=== PATIENT | female | born 1965 | race Caucasian/White ===

== ENCOUNTER 2019-05-24 10:47 | Inpatient (IN) | payer OTHER ==
[~2019-05-24] VITALS: Ht 175.3 cm; Wt 131.8 kg
[2019-05-24] MEDS ORDERED: ASPIRIN 325 MG (5 GR) TABLET PO ONE (11:15)
[2019-05-24 11:27] LABS: BASOPHILS % (AUTO) 0 % (0-10); EOSINOPHILS % (AUTO) 4 % (0-10); HEMATOCRIT 42 % (35-52); HEMOGLOBIN 13.9 G/DL (11.5-16.0); LYMPHOCYTES % (AUTO) 31 % (12-44); MEAN CORPUSCULAR HEMOGLOBIN 29 PG (25-34); MEAN CORPUSCULAR HGB CONC 33 G/DL (32-36); MEAN CORPUSCULAR VOLUME 89 FL (80-99); MEAN PLATELET VOLUME 10.9 FL (7.4-10.4); MONOCYTES % (AUTO) 9 % (0-12); NEUTROPHILS # (AUTO) 2.6 X 10^3 (1.8-7.8); NEUTROPHILS % (AUTO) 56 % (42-75); PLATELET COUNT 169 10^3/uL (130-400); RED CELL DISTRIBUTION WIDTH 16.2 % (10.0-14.5); WHITE BLOOD COUNT 4.7 10^3/uL (4.3-11.0)
[2019-05-24 11:28] LABS: EOSINOPHILS # (AUTO) 0.2 10^3/uL (0.0-0.3); LYMPHOCYTES # (AUTO) 1.4 X 10^3 (1.0-4.0); MONOCYTES # (AUTO) 0.4 X 10^3 (0.0-1.0)
[2019-05-24] MEDS ORDERED: RT-ALBUTEROL/IPRATROPIUM 3 ML (DUONEB) VIAL INH ONE (11:30)
--- NOTE | 2019-05-24 11:34 | ED Chest Pain ---
General Chief Complaint: Chest Pain Stated Complaint: SOB; CHEST PAIN History of Present Illness Date Seen by Provider: May 24, 2019 Time Seen by Provider: 11:07 Initial Comments The patient is a 54-year-old female with a complicated medical history including hypertension, hyperlipidemia, heart failure with unclear EF as no echocardiograms are on file, insulin-dependent diabetes, chronic respiratory failure on 3-4 L of oxygen at nighttime only which is felt secondary to pulmonary hypertension, history of prior tobacco abuse. Patient does not have a known history of coronary artery disease. She is typically able to get about with no problems during the daytime without her home oxygen. The patient presents with concern for shortness of breath and diminished oxygen saturation occurring just prior to arrival in association with dull, pressure- like nonradiating but rather severe central substernal chest pain. 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 In the physical therapy clinic the patient's oxygen saturation was noted to be in the 70s on room air and was in the 70s on room air here in triage and improved to the low to mid 90s on 3 L by nasal cannula. Patient states her shortness of breath and chest pressure resolved once she was placed on nasal cannula oxygen here in the emergency department. The patient states she's been in her normal state of health over the past few days and denies fevers, nausea or vomiting, new productive cough, abdominal pain, flank pain, back pain, dysuria or hematuria, changes in bowel habits. Allergies and Home Medications Allergies Coded Allergies: lisinopril (Verified Allergy, Unknown, 05/24/19) simvastatin (Verified Allergy, Unknown, weakness, 05/24/19) Home Medications No Active Prescriptions or Reported Meds Patient Home Medication List Home Medication List Reviewed: Yes Review of Systems Review of Systems Constitutional: see HPI All Other Systems Reviewed Negative Unless Noted: Yes (Negative excepted noted.) Past Zxielqn-Kfprxy-Swalef Hx Past Med/Social Hx: Reviewed Nursing Past Med/Soc Hx Patient Social History Recent Foreign Travel: No Family Medical History Reviewed Nursing Family Hx Physical Exam Vital Signs Vital Signs - First Documented 05/24/19 11:15 Temp 35.9 Pulse 69 Resp 18 B/P (MAP) 147/58 (87) Pulse Ox 95 Capillary Refill : Height, Weight, BMI Height: '" Weight: lbs. oz. kg; BMI Method: General Appearance: No Apparent Distress Other comments This is an older female appearing nontoxic and in no acute distress. Head is normocephalic and atraumatic. Neck is supple and nontender. Oropharynx is moist. Lungs are clear to auscultation in all stations without adventitious sounds and the patient is speaking comfortably in full sentences without tachypnea. There is a normal S1 and S2 without rubs or gallops and capillary refill is appropriate, less than 2 seconds globally. Abdomen soft, nontender and nondistended. Skin is warm and dry without cyanosis, clubbing or edema. Psychiatrically, the patient demonstrates appropriate mood and affect and is alert. Progress/Results/Core Measures Results/Orders Lab Results Laboratory Tests Test 05/24/19 11:15 Range/Units White Blood Count 4.7 4.3-11.0 10^3/uL Red Blood Count 4.72 4.35-5.85 10^6/uL Hemoglobin 13.9 11.5-16.0 G/DL Hematocrit 42 35-52 % Mean Corpuscular Volume 89 80-99 FL Mean Corpuscular Hemoglobin 29 25-34 PG Mean Corpuscular Hemoglobin Concent 33 32-36 G/DL Red Cell Distribution Width 16.2 H 10.0-14.5 % Platelet Count 169 130-400 10^3/uL Mean Platelet Volume 10.9 H 7.4-10.4 FL Neutrophils (%) (Auto) 56 42-75 % Lymphocytes (%) (Auto) 31 12-44 % Monocytes (%) (Auto) 9 0-12 % Eosinophils (%) (Auto) 4 0-10 % Basophils (%) (Auto) 0 0-10 % Neutrophils # (Auto) 2.6 1.8-7.8 X 10^3 Lymphocytes # (Auto) 1.4 1.0-4.0 X 10^3 Monocytes # (Auto) 0.4 0.0-1.0 X 10^3 Eosinophils # (Auto) 0.2 0.0-0.3 10^3/uL Basophils # (Auto) 0.0 0.0-0.1 10^3/uL Prothrombin Time 13.3 12.2-14.7 SEC INR Comment 1.0 0.8-1.4 Activated Partial Thromboplast Time 34 24-35 SEC D-Dimer 0.43 0.00-0.49 UG/ML Sodium Level 137 135-145 MMOL/L Potassium Level 3.9 3.6-5.0 MMOL/L Chloride Level 97 L 98-107 MMOL/L Carbon Dioxide Level 27 21-32 MMOL/L Anion Gap 13 5-14 MMOL/L Blood Urea Nitrogen 17 7-18 MG/DL Creatinine 0.92 0.60-1.30 MG/DL Estimat Glomerular Filtration Rate > 60 BUN/Creatinine Ratio 18 Glucose Level 373 H 70-105 MG/DL Calcium Level 8.9 8.5-10.1 MG/DL Corrected Calcium 9.2 8.5-10.1 MG/DL Total Bilirubin 0.8 0.1-1.0 MG/DL Aspartate Amino Transf (AST/SGOT) 22 5-34 U/L Alanine Aminotransferase (ALT/SGPT) 16 0-55 U/L Alkaline Phosphatase 153 H 40-136 U/L Troponin I < 0.30 <0.30 NG/ML Pro-B-Type Natriuretic Peptide 34.3 <75.0 PG/ML Total Protein 6.9 6.4-8.2 GM/DL Albumin 3.6 3.2-4.5 GM/DL My Orders Orders - KUN RENEE MD Cbc With Automated Diff (05/24/19 11:14) Comprehensive Metabolic Panel (05/24/19 11:14) Troponin I Fs (05/24/19 11:14) Ekg Tracing (05/24/19 11:14) Chest 1 View Ap/Pa Only (05/24/19 11:14) Probnp Fs (05/24/19 11:14) Protime With Inr (05/24/19 11:14) Partial Thromboplastin Time (05/24/19 11:14) Aspirin Tablet (Aspirin Tablet) (05/24/19 11:15) Fibrin Degradation Products (05/24/19 11:26) Albuterol/Ipra Inhalation Soln (Duoneb I (05/24/19 11:30) Svn Small Volume Nebulizer (05/24/19 11:26) Insulin (Regular) Human (Humulin R (Per (05/24/19 12:15) Medications Given in ED Current Medications Medications Dose Ordered Sig/Siva Route Start Time Stop Time Status Last Admin Dose Admin Albuterol/ Ipratropium 3 ml ONCE ONCE INH 05/24/19 11:30 05/24/19 11:31 DC 05/24/19 11:35 3 ML Aspirin 325 mg ONCE ONCE PO 05/24/19 11:15 05/24/19 11:16 DC 05/24/19 11:35 325 MG Insulin Human Regular 10 unit ONCE ONCE SC 05/24/19 12:15 05/24/19 12:16 DC 05/24/19 12:31 10 UNIT Vital Signs/I&O 05/24/19 11:15 Temp 35.9 Pulse 69 Resp 18 B/P (MAP) 147/58 (87) Pulse Ox 95 Progress Progress Note : Time: 11:36 Progress Note Quite comorbid female who presents with a new/worsened oxygen requirement in association with central substernal chest pressure with onset with exertion about an hour prior to arrival. Clinical examination reassuring. EKG nonacute. We'll initiate constant cardiorespiratory monitoring, check labs and chest x-ray and will obtain a d-dimer. We'll try an empiric DuoNeb although I do not hear adventitious sounds on respiratory exam. We will then reevaluate. The patient will minimally be an observation admission for ACS r/o and further care, likely to the [facility] in [place] because that is where she follows. Update 1330: The patient is resting comfortably in no acute distress and verbalizes that her shortness of breath and chest pain remained resolved on her typical home oxygen. Workup is unremarkable and reassuring including a negative d-dimer. The patient initially requested transfer to the [facility] for admission as the [facility] in [place] has no beds. I discussed the case with Dr. Bustillos at [place] who stated that [place] was at capacity at this time. Patient and agreed to be transferred to [place]. Dr. Lopez graciously accepts the patient for telemetry observation admission and does request that we complete CT angiography of the chest prior to transfer to [place]. Will order. EKG : Comment Sinus rhythm, rate 70, no acute ST elevation or depression, IA 202, QRS 99, QTc 474, EP interpretation. Interpretation is compromised by some baseline artifact and I have directed nursing to repeat EKG. Diagnostic Imaging Comments CHEST 1 VIEW AP/PA ONLY Patient History: Chest pain and shortness of breath. Technique: Single frontal view of the chest Comparison: None. FINDINGS: The lung volumes are mildly large. No focal consolidation is seen. No large pleural effusion or pneumothorax is seen. The cardiac silhouette is mildly large. No acute osseous abnormality is seen. IMPRESSION: No acute pulmonary abnormality seen. Mild cardiomegaly. Departure Impression Primary Impression: Other chest pain Additional Impressions: Shortness of breath Acute respiratory failure with hypoxemia Disposition: ADMITTED INPATIENT Condition: Stable Departure-Patient Inst. Scripts No Active Prescriptions or Reported Meds KUN RENEE MD May 24, 2019 11:34 POS
--- NOTE | 2019-05-24 11:42 | Diagnostic Imaging Report ---
Patient History: Chest pain and shortness of breath. Technique: Single frontal view of the chest Comparison: None. FINDINGS: The lung volumes are mildly large. No focal consolidation is seen. No large pleural effusion or pneumothorax is seen. The cardiac silhouette is mildly large. No acute osseous abnormality is seen. IMPRESSION: No acute pulmonary abnormality seen. Mild cardiomegaly. Dictated by: Dictated on workstation # [id number]
[2019-05-24 11:47] LABS: PROTHROMBIN TIME PATIENT 13.3 SEC (12.2-14.7)
[2019-05-24 11:57] LABS: BILIRUBIN,TOTAL 0.8 MG/DL (0.1-1.0); BUN/CREATININE RATIO 18; CALCIUM 8.9 MG/DL (8.5-10.1); CARBON DIOXIDE 27 MMOL/L (21-32); CHLORIDE 97 MMOL/L (98-107); CREATININE SERUM 0.92 MG/DL (0.60-1.30); GFR ESTIMATED > 60; GLUCOSE 373 MG/DL (70-105); POTASSIUM 3.9 MMOL/L (3.6-5.0); SODIUM 137 MMOL/L (135-145)
[2019-05-24 11:58] LABS: ALANINE AMINOTRANSFERASE 16 U/L (0-55); ALBUMIN 3.6 GM/DL (3.2-4.5); ALKALINE PHOSPHATASE 153 U/L (40-136); TOTAL PROTEIN 6.9 GM/DL (6.4-8.2)
[2019-05-24] MEDS ORDERED: inSUlin (REGULAR) HUMAN 1 UNIT/0.01 ML (CHARGE PER UNIT) SC ONE (12:15)
[2019-05-24] MEDS ORDERED: NS 100 ML (IVPB) BAG IV ONE (14:15)
[2019-05-24] MEDS ORDERED: CATHETER FLUSH 10 ML SYR IV PRN (14:15)
[2019-05-24] MEDS ORDERED: IOHEXOL 350 MG/ML 150 ML (OMNIPAQUE 350) VIAL IV ONE (14:15)
[2019-05-24] MEDS ORDERED: HOLD METFORMIN - RECEIVED CONTRAST 20 ML VIAL IV SCH (14:15)
--- NOTE | 2019-05-24 14:42 | Diagnostic Imaging Report ---
EXAMINATION: CT angiography of the chest. TECHNIQUE: Contrast enhanced thin section helical images were obtained through the chest with intravenous contrast timed for the optimal opacification of the arterial structures per CTA protocol. Post-processing, reconstructions and interpretation of angiographic images of the vessels was performed. 3D MIP reconstructions were performed and reviewed. All CT scans use one or more of the following dose optimizing techniques: automated exposure control, MA and/or KvP adjustment based on a patient size and exam type, or iterative reconstruction. HISTORY: Chest pain and shortness of breath. COMPARISON: None available. FINDINGS: There is no pulmonary embolism. Aorta is normal in caliber. The lungs are clear without edema or pneumonia. No pleural effusion or pneumothorax. No suspicious nodules. In the left major fissure, a kenn-fissural lymph node is seen. Lungs are mildly edematous as evidenced by septal line thickening. There is a small pericardial effusion with dilated left ventricle. Heart size is normal. No pericardial effusion. There is no axillary or supraclavicular lymphadenopathy. 16 mm right lower paratracheal lymph node is seen, a few other mildly enlarged right lower paratracheal lymph nodes are seen. Gallbladder is surgically absent. There are no suspicious osseous lesions. IMPRESSION: 1. No pulmonary embolism. 2. Mild pulmonary edema with small pericardial effusion and dilated left ventricle. Dictated by: Dictated on workstation # [id number]
--- NOTE | 2019-05-24 17:00 | NUR ---
SILVIO BAIRD admitted to room 412-1, with an admitting diagnosis of ACUTE ON CHRONIC RESPIRATORY FAILURE AND CHEST PAIN, on 05/24/19 from [facility] via EMS, accompanied by EMS STAFF. SILVIO BAIRD introduced to surroundings, call light, bed controls, phone, TV, temperature control, lights, meal times, smoking policy, visitor policy, side rail policy, bathrooms and showers. Patient Rights given to patient in the handbook. SILVIO BAIRD verbalizes understanding that [facility] is not responsible for the loss or damage to any personal effects or valuables that are kept in the patients possession during their hospitalization.
[2019-05-24 18:04] VITALS: BP 136/60
[2019-05-24] MEDS ORDERED: ATOR80TA76 PO (18:04)
[2019-05-24] MEDS ORDERED: SEMA0.25 SQ (18:04)
[2019-05-24] MEDS ORDERED: HYDR25TA4 PO (18:04)
[2019-05-24] MEDS ORDERED: CLOP75TA69 PO (18:04)
[2019-05-24] MEDS ORDERED: EMPA25TA PO (18:04)
[2019-05-24] MEDS ORDERED: POTA-51 PO (18:04)
[2019-05-24] MEDS ORDERED: CETI10TA23 PO (18:04)
[2019-05-24] MEDS ORDERED: LOSA50TA63 PO (18:04)
[2019-05-24] MEDS ORDERED: DULO60CA59 PO (18:04)
[2019-05-24] MEDS ORDERED: PREG150C PO (18:04)
[2019-05-24] MEDS ORDERED: INSU100V16 SQ (18:04)
[2019-05-24] MEDS ORDERED: DICL100G31 TP (18:04)
[2019-05-24] MEDS ORDERED: ROPI1TAB2 PO (18:04)
[2019-05-24] MEDS ORDERED: PANT40TA3 PO (18:04)
[2019-05-24] MEDS ORDERED: ACET-93 PO (18:04)
[2019-05-24 18:07] VITALS: BP 136/60
[2019-05-24] MEDS ORDERED: MILK OF MAGNESIA 400 MG/5 ML 30 ML UDC PO PRN (19:15)
[2019-05-24] MEDS ORDERED: ONDANSETRON 4 MG (ZOFRAN) ORAL DISSOLVE TAB PO PRN (19:15)
[2019-05-24] MEDS ORDERED: MELATONIN 3 MG TABLET PO PRN (19:15)
[2019-05-24] MEDS ORDERED: POLYETHYLENE GLYCOL 17 GM (MIRALAX) PACK PO PRN (19:15)
[2019-05-24] MEDS ORDERED: BISACODYL 10 MG SUPP (DULCOLAX) PR PRN (19:15)
[2019-05-24] MEDS ORDERED: ONDANSETRON 4 MG/2 ML (SDV) Z0FRAN IV PRN (19:15)
[2019-05-24] MEDS: ENOXAPARIN 40 MG/0.4 ML (LOVENOX) SYR SQ SCH (19:50)
[2019-05-24 20:47] VITALS: BP 120/57
[2019-05-24] MEDS: rOPINIRole 1 MG (REQUIP) TABLET PO SCH (21:24)
[2019-05-24] MEDS: PREGABALIN 150 MG (LYRICA) CAPSULE PO SCH (21:24)
[2019-05-24] MEDS: inSUlin ASPART (NovoLOG) 1 UNIT/0.01 ML (CHARGE PER UNIT) SC SCH (21:24)
[2019-05-24] MEDS: SENNOSIDES 8.6 MG (SENOKOT) TAB PO SCH (21:25)
[2019-05-24] MEDS: DOCUSATE SODIUM 100 MG (COLACE) CAP PO SCH (21:25)
[2019-05-25] VITALS: BP 113/54
[2019-05-25] MEDS ORDERED: RT-ALBUTEROL/IPRATROPIUM 3 ML (DUONEB) VIAL INH PRN (00:15)
[2019-05-25] MEDS: RT-ALBUTEROL/IPRATROPIUM 3 ML (DUONEB) VIAL INH SCH ×4 (02:33→21:11)
[2019-05-25 04:00] VITALS: BP 130/56
--- NOTE | 2019-05-25 05:19 | Consultation-Cardiology ---
HPI-Cardiology Cardiology Consultation Date of Consultation 05/25/19 Date of Admission Time Seen by Provider: 05:16 Indication: Chest pain HPI 54-year-old lady with history of COPD, hypertension hyperlipidemia, use oxygen at home, started to have some chest pressure in the retrosternal area after walking for short distances, came into the emergency room for evaluation, she was monitored overnight, this morning reported that she is been feeling well since arrival to the hospital no further episode of chest pain. Using oxygen. No palpitation. No syncope or near syncopal episodes. Home Medications & Allergies Allergies: Coded Allergies: lisinopril (Verified Allergy, Unknown, 05/24/19) simvastatin (Verified Allergy, Unknown, weakness, 05/24/19) Home Medication List Reviewed: Yes TYP-[id number]-Njzqtw Hx Patient Social History Alcohol Use: Denies Use Recreational Drug Use: No Smoking Status: Former Smoker Type Used: Cigarettes 2nd Hand Smoke Exposure: Yes Recent Foreign Travel: No Recent Infectious Disease Expo: No Recent Hopitalizations: No Immunizations Up To Date Date of Influenza Vaccine: Apr 09, 2019 Past Medical History Discussed below Family Medical History Family Medical Hx Noncontributory Review of Systems-General Review of Systems Constitutional: no symptoms reported, see HPI EENTM: see HPI, no symptoms reported Respiratory: see HPI, dyspnea on exertion, short of breath Cardiovascular: see HPI, chest pain, edema; No Hx of Intervention, No palpitations, No syncope, No vascular heart diseas, No other Gastrointestinal: no symptoms reported, see HPI Genitourinary: no symptoms reported, see HPI Musculoskeletal: no symptoms reported, see HPI Skin: no symptoms reported, see HPI Psychiatric/Neurological: No Symptoms Reported, See HPI All Other Systems Reviewed Negative Unless Noted: Yes (Negative excepted noted.) Reviewed Test Results Reviewed Test Results Lab Laboratory Tests Test 05/24/19 11:15 05/24/19 17:29 05/24/19 20:55 05/24/19 22:57 Range/Units White Blood Count 4.7 4.3-11.0 10^3/uL Red Blood Count 4.72 4.35-5.85 10^6/uL Hemoglobin 13.9 11.5-16.0 G/DL Hematocrit 42 35-52 % Mean Corpuscular Volume 89 80-99 FL Mean Corpuscular Hemoglobin 29 25-34 PG Mean Corpuscular Hemoglobin Concent 33 32-36 G/DL Red Cell Distribution Width 16.2 H 10.0-14.5 % Platelet Count 169 130-400 10^3/uL Mean Platelet Volume 10.9 H 7.4-10.4 FL Neutrophils (%) (Auto) 56 42-75 % Lymphocytes (%) (Auto) 31 12-44 % Monocytes (%) (Auto) 9 0-12 % Eosinophils (%) (Auto) 4 0-10 % Basophils (%) (Auto) 0 0-10 % Neutrophils # (Auto) 2.6 1.8-7.8 X 10^3 Lymphocytes # (Auto) 1.4 1.0-4.0 X 10^3 Monocytes # (Auto) 0.4 0.0-1.0 X 10^3 Eosinophils # (Auto) 0.2 0.0-0.3 10^3/uL Basophils # (Auto) 0.0 0.0-0.1 10^3/uL Prothrombin Time 13.3 12.2-14.7 SEC INR Comment 1.0 0.8-1.4 Activated Partial Thromboplast Time 34 24-35 SEC D-Dimer 0.43 0.00-0.49 UG/ML Sodium Level 137 135-145 MMOL/L Potassium Level 3.9 3.6-5.0 MMOL/L Chloride Level 97 L 98-107 MMOL/L Carbon Dioxide Level 27 21-32 MMOL/L Anion Gap 13 5-14 MMOL/L Blood Urea Nitrogen 17 7-18 MG/DL Creatinine 0.92 0.60-1.30 MG/DL Estimat Glomerular Filtration Rate > 60 BUN/Creatinine Ratio 18 Glucose Level 373 H 70-105 MG/DL Calcium Level 8.9 8.5-10.1 MG/DL Corrected Calcium 9.2 8.5-10.1 MG/DL Total Bilirubin 0.8 0.1-1.0 MG/DL Aspartate Amino Transf (AST/SGOT) 22 5-34 U/L Alanine Aminotransferase (ALT/SGPT) 16 0-55 U/L Alkaline Phosphatase 153 H 40-136 U/L Troponin I < 0.30 < 0.028 < 0.028 <0.028 NG/ML Pro-B-Type Natriuretic Peptide 34.3 <75.0 PG/ML Total Protein 6.9 6.4-8.2 GM/DL Albumin 3.6 3.2-4.5 GM/DL Glucometer 155 H 70-110 MG/DL Physical Exam Physical Exam Vital Signs Vital Signs - First Documented 05/24/19 05/24/19 05/24/19 11:15 18:04 23:55 Temp 35.9 Pulse 69 Resp 18 B/P (MAP) 147/58 (87) Pulse Ox 95 O2 Delivery Nasal Cannula O2 Flow Rate 3.00 FiO2 32 Capillary Refill : Less Than 3 Seconds Height, Weight, BMI Height: '" Weight: lbs. oz. kg; 42.10 BMI Method: General Appearance: No Apparent Distress Eyes: Bilateral Eye Normal Inspection, Bilateral Eye PERRL, Bilateral Eye EOMI HEENT: PERRL/EOMI, TMs Normal, Normal ENT Inspection, Pharynx Normal, Moist Mucous Membranes Neck: Full Range of Motion, Normal Inspection, Non Tender, Supple, Carotid Bruit Respiratory: Chest Non Tender, Normal Breath Sounds, No Accessory Muscle Use, No Respiratory Distress Cardiovascular: Regular Rate, Rhythm, No Edema, No Gallop, No JVD, No Murmur, Normal Peripheral Pulses Gastrointestinal: Normal Bowel Sounds, No Organomegaly, No Pulsatile Mass, Non Tender, Soft Back: Normal Inspection, No CVA Tenderness, No Vertebral Tenderness Extremity: Normal Capillary Refill, Normal Inspection, Normal Range of Motion, Non Tender, No Calf Tenderness, No Pedal Edema Neurologic/Psychiatric: Alert, Oriented x3, No Motor/Sensory Deficits, Normal Mood/Affect Skin: Normal Color, Warm/Dry Lymphatic: No Adenopathy A/P-Cardiology Admission Diagnosis Chest pain Shortness of breath Hypertension Hyperlipidemia Assessment/Plan Chest pain nonspecific etiology, atypical in presentation, no acute EKG changes, cardiac enzymes are negative. Discussed with the patient management per rec ommended stress test to be done as an outpatient. Shortness of breath on exertion, history of COPD, oxygen dependent. Managed by primary care team Hypertension, restart home medication monitor blood pressure Hyperlipidemia, maintained on statin. Continue to monitor lipids Diabetes mellitus, followed and managed by primary care physician Obesity, BMI 42, discussed weight loss and exercise Tobaccoism, patient has stopped smoking recently, encouraged to continue with smoking cessation From cardiology standpoint okay for discharge and follow-up as an outpatient, I will schedule stress test as an outpatient. Clinical Quality Measures DVT/VTE Risk/Contraindication: Risk Factor Score Per Nursin RFS Level Per Nursing on Admit: 4+=Very High MILA ADEN MD May 25, 2019 05:19 POS
[2019-05-25 05:53] LABS: BASOPHILS % (AUTO) 0 % (0-10); EOSINOPHILS # (AUTO) 0.2 10^3/uL (0.0-0.3); EOSINOPHILS % (AUTO) 4 % (0-10); HEMATOCRIT 40 % (35-52); HEMOGLOBIN 12.9 G/DL (11.5-16.0); LYMPHOCYTES # (AUTO) 1.6 X 10^3 (1.0-4.0); LYMPHOCYTES % (AUTO) 32 % (12-44); MEAN CORPUSCULAR HEMOGLOBIN 29 PG (25-34); MEAN CORPUSCULAR HGB CONC 32 G/DL (32-36); MEAN CORPUSCULAR VOLUME 89 FL (80-99); MONOCYTES # (AUTO) 0.5 X 10^3 (0.0-1.0); MONOCYTES % (AUTO) 9 % (0-12); NEUTROPHILS # (AUTO) 2.8 X 10^3 (1.8-7.8); NEUTROPHILS % (AUTO) 55 % (42-75); PLATELET COUNT 161 10^3/uL (130-400); RED CELL DISTRIBUTION WIDTH 16.8 % (10.0-14.5); WHITE BLOOD COUNT 5.1 10^3/uL (4.3-11.0)
[2019-05-25 06:05] LABS: ALANINE AMINOTRANSFERASE 16 U/L (0-55); ALBUMIN 3.3 GM/DL (3.2-4.5); ALKALINE PHOSPHATASE 117 U/L (40-136); BILIRUBIN,TOTAL 0.8 MG/DL (0.1-1.0); BUN/CREATININE RATIO 14; CALCIUM 9.1 MG/DL (8.5-10.1); CARBON DIOXIDE 26 MMOL/L (21-32); CHLORIDE 104 MMOL/L (98-107); GFR ESTIMATED 58; GLUCOSE 190 MG/DL (70-105); POTASSIUM 3.8 MMOL/L (3.6-5.0); SODIUM 142 MMOL/L (135-145); TOTAL PROTEIN 6.3 GM/DL (6.4-8.2)
[2019-05-25] MEDS: inSUlin ASPART (NovoLOG) 1 UNIT/0.01 ML (CHARGE PER UNIT) SC SCH ×7 (06:57→21:20)
[2019-05-25] MEDS: ENOXAPARIN 40 MG/0.4 ML (LOVENOX) SYR SQ SCH ×2 (07:00→18:10)
--- NOTE | 2019-05-25 07:10 | Pulmonary Consultation ---
History of Present Illness History of Present Illness Date of Consultation 05/25/19 07:05 Time Seen by Provider: 07:05 Date of Admission Reason for Visit: Chest pain History of Present Illness 54yo with hx of COPD, nocturnal hypoxia uses 3-4liters/min 02 at night, HTN, CHF, IDDM presented to ED secondary to worsening SOB, and nonradiating chest pain. Pt's Sp02 was noted to be in the 70's. I am consulted for pulmonary management. Allergies and Home Medications Allergies Coded Allergies: lisinopril (Verified Allergy, Unknown, 05/24/19) simvastatin (Verified Allergy, Unknown, weakness, 05/24/19) Home Medications Acetaminophen 500 Mg Tablet, 1,000 MG PO TID PRN for PAIN-MILD (1-4), (Reported) Atorvastatin Calcium 80 Mg Tablet, 80 MG PO HS, (Reported) Cetirizine HCl 10 Mg Tab.chew, 10 MG PO DAILY, (Reported) Clopidogrel Bisulfate 75 Mg Tablet, 75 MG PO DAILY, (Reported) Diclofenac Sodium 100 Gm Gel..gram., 4 GM TP BID PRN, (Reported) Duloxetine HCl 60 Mg Capsule.dr, 60 MG PO DAILY, (Reported) Empagliflozin 25 Mg Tablet, 12.5 MG PO Q48H, (Reported) Hydrochlorothiazide 25 Mg Tablet, 25 MG PO DAILY, (Reported) Insulin Aspart 100 Unit/1 Ml Susp, 50 UNIT SQ TIDAC, (Reported) Losartan Potassium 50 Mg Tablet, 50 MG PO DAILY, (Reported) Pantoprazole Sodium 40 Mg Tablet.dr, 40 MG PO DAILY, (Reported) Potassium Chloride 20 Meq Tablet.er, 20 MEQ PO DAILY, (Reported) Pregabalin 150 Mg Capsule, 150 MG PO BID, (Reported) Ropinirole HCl 1 Mg Tablet, 1 MG PO BID, (Reported) Semaglutide 0.25 Mg/0.2 Ml Pen.injctr, 0.5 MG SQ WEEK, (Reported) Past Ttwsvcx-Khnvxx-Pmmlmo Hx Past Med/Social Hx: Reviewed Nursing Past Med/Soc Hx Patient Social History Alcohol Use: Denies Use Recreational Drug Use: No Smoking Status: Former Smoker Type Used: Cigarettes Former Smoker, Quit: Apr 23, 2019 2nd Hand Smoke Exposure: Yes Recent Foreign Travel: No Contact w/Someone Who Travel: No Recent Infectious Disease Expo: No Recent Hopitalizations: No Physical Abuse: No Sexual Abuse: No Mistreated: No Fear: No Immunizations Up To Date Date of Influenza Vaccine: Apr 09, 2019 Seasonal Allergies Seasonal Allergies: No Past Medical History Surgeries: Yes Gallbladder, Hysterectomy, Tubal Ligation Respiratory: Yes (home O2; possible pulmonary HTN- sees pulmonology in ) Pneumonia High Cholesterol, Hypertension Neurological: Yes Stroke Genitourinary: No Gastrointestinal: Yes Gastroesophageal Reflux Musculoskeletal: No Endocrine: Yes Diabetes, Insulin dep HEENT: No Cancer: No Psychosocial: No Integumentary: No Blood Disorders: No Adverse Reaction/Blood Tranf: No Family Medical History Reviewed Nursing Family Hx Review of Systems Time Seen by Provider: 07:17 Constitutional: Sweats, Weakness, Malaise; No: Fever, Chills, Other Eyes: No: Pain, Vision change, Conjunctivae inflammation, Eyelid inflammation, Other, Redness ENT: No: Ear pain, Ear discharge, Nose pain, Nose discharge, Nose congestion, Mouth pain, Mouth swelling, Throat pain, Throat swelling, Other Respiratory: Cough, Dry, Shortness of breath, SOB with excertion, Wheezing; No: Hemoptysis, Pleuritic Pain, Sputum, Wheezing, Other Cardiovascular: Chest Pain, Palpitations, Paroxysmal Noc. Dyspnea Gastrointestinal: No: Nausea, Vomiting, Abdominal Pain, Diarrhea, Constipation, Melena, Hematochezia, Other Sepsis Event Evaluation Height, Weight, BMI Height: '" Weight: lbs. oz. kg; 42.10 BMI Method: Exam Exam Vital Signs Date Time Temp Pulse Resp B/P (MAP) Pulse Ox O2 Delivery O2 Flow Rate FiO2 05/25/19 04:00 35.6 74 20 130/56 (80) 90 Nasal Cannula 3.50 05/25/19 02:33 87 Nasal Cannula 3.00 05/25/19 01:00 71 05/25/19 00:00 36.6 75 18 113/54 (73) 92 Nasal Cannula 3.50 05/24/19 23:55 35.9 71 90 32 05/24/19 23:50 Nasal Cannula 3.00 05/24/19 21:07 67 05/24/19 20:47 36.8 75 16 120/57 (78) 89 Nasal Cannula 3.50 05/24/19 19:45 Nasal Cannula 3.50 05/24/19 19:21 Nasal Cannula 3.00 05/24/19 18:04 36.2 60 22 136/60 96 Nasal Cannula 3.00 05/24/19 16:10 36.5 69 13 154/55 91 05/24/19 11:15 35.9 69 18 147/58 (87) 95 I & O 05/25/19 07:00 Intake Total 600 ml Output Total 1650 ml Balance -1050 ml Height & Weight Height: '" Weight: lbs. oz. kg; 42.10 BMI Method: General Appearance: No Apparent Distress HEENT: PERRL/EOMI, TMs Normal, Normal ENT Inspection, Pharynx Normal, Moist Mucous Membranes Neck: Full Range of Motion, Normal Inspection, Non Tender, Supple, Carotid Bruit Respiratory: Chest Non Tender, Normal Breath Sounds, No Accessory Muscle Use, No Respiratory Distress Cardiovascular: Regular Rate, Rhythm, No Edema, No Gallop, No JVD, No Murmur, Normal Peripheral Pulses Capillary Refill: Less Than 3 Seconds Extremity: Normal Capillary Refill, Normal Inspection, Normal Range of Motion, Non Tender, No Calf Tenderness, No Pedal Edema Neurologic/Psychiatric: Alert, Oriented x3, No Motor/Sensory Deficits, Normal Mood/Affect Skin: Normal Color, Warm/Dry Lymphatic: No Adenopathy Results Lab Laboratory Tests 05/24/19 11:15 05/25/19 05:25 Assessment/Plan Assessment/Plan COPDAE -CT is neg for pe, no mass -PT probably needs portable oxygen. She already has nocturnal oxygen -PFT as out pt Atypical CP -Cardiology following Morbid obesity r/o OHS -Check ABG Tobacco dependance -Recently quit FELICIANO GARCIA DO May 25, 2019 07:10 POS
[2019-05-25 08:00] VITALS: BP 113/68
[2019-05-25] MEDS: LOSARTAN 50 MG (COZAAR) TAB PO SCH (08:40)
[2019-05-25] MEDS: LORATADINE (CLARITIN) 10 MG TAB PO SCH (08:40)
[2019-05-25] MEDS: CLOPIDOGREL 75 MG (PLAVIX) TABLET PO SCH (08:40)
[2019-05-25] MEDS: PANTOPRAZOLE 40 MG (PROTONIX) TAB PO SCH (08:40)
[2019-05-25] MEDS: SENNOSIDES 8.6 MG (SENOKOT) TAB PO SCH ×2 (08:40→21:21)
[2019-05-25] MEDS: rOPINIRole 1 MG (REQUIP) TABLET PO SCH ×2 (08:40→21:20)
[2019-05-25] MEDS: DULoxetine 30 MG (CYMBALTA) CAP PO SCH (08:41)
[2019-05-25] MEDS: PREGABALIN 150 MG (LYRICA) CAPSULE PO SCH ×2 (08:41→21:20)
[2019-05-25] MEDS: DOCUSATE SODIUM 100 MG (COLACE) CAP PO SCH ×2 (08:42→21:20)
[2019-05-25] MEDS ORDERED: DICLOFENAC 1% GEL 100 GM (VOLTAREN) TUBE TOP PRN (09:00)
[2019-05-25 09:39] LABS: ABG BASE EXCESS 0.5 MMOL/L (-2.5-2.5); ABG OXYGEN SATURATION 98 % (94-100); ABG PCO2 47 MMHG (35-45); ABG PH 7.35 (7.37-7.43); ABG PO2 99 MMHG (79-93); ALLENS TEST YES-POS; INSPIRED O2 4 L; PATIENT TEMP 36.5; VENTILATOR NO
--- NOTE | 2019-05-25 11:17 | NUR ---
SPO2 83% ON ROOM AIR @ REST. REPLACED O2 @ 6 LPM. SPO2 INCREASED TO 94%. WALKED PT FOR ABOUT 5 MINUTES. SPO2 DROPPED TO 84% WHILE ON 6 LPM, INCREASED TO 8 LPM, SPO2 DROPPED TO 86% ON 8 LPM. INCREASED O2 TO 10 LPM. SPO2 STAYED ABOVE 90% ON 10 LPM. Addendum: 05/25/19 at 1117 by JASMYN CHOI RT Amended: Links added.
[2019-05-25 12:00] VITALS: BP 127/62
[2019-05-25] MEDS ORDERED: methylPREDNISolone 125 MG (Solu-MEDROL) VIAL IVP ONE (12:15)
--- NOTE | 2019-05-25 12:25 | History & Physical-Hospitalist ---
History of Present Illness HPI/Chief Complaint Glendy Mills is a 54yoF with PMH HTN, HLD, GERD, T2DM, morbid obesity, chronic respiratory failure with hypoxia on nocturnal oxygen, possible COPD, possible pulmonary hypertension, who presented with shortness of breath, chest pain, and hypoxia. She had gone to physical therapy and when she walked in she became very short of breath. She also developed a pressure-like chest pain which did not radiate and had no associated nausea or diaphoresis. She denies any pleuritic chest pain. She denies any leg swelling. 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 She had previously been on continuous oxygen, but then it was changed to as needed and at nighttime. 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 Source: patient Exam Limitations: no limitations Date Seen 05/25/19 Time Seen by a Provider: 09:00 Attending Physician Jacqueline Daniels MD PCP No,Local Physician Referring Physician Date of Admission May 24, 2019 at 14:13 Home Medications & Allergies Home Medications Reviewed patient Home Medication Reconciliation performed by pharmacy medication reconciliations photocopier technician and/or nursing. Patients Allergies have been reviewed. Allergies Allergies Coded Allergies lisinopril (Verified Allergy, Unknown, 05/24/19) simvastatin (Verified Allergy, Unknown, weakness, 05/24/19) Past Hrzfxko-Keriqf-Tvrfzl Hx Past Med/Social Hx: Reviewed Nursing Past Med/Soc Hx Patient Social History Alcohol Use: Denies Use Recreational Drug Use: No Smoking Status: Former Smoker Former Smoker, Quit: Apr 23, 2019 Type Used: Cigarettes 2nd Hand Smoke Exposure: Yes Recent Foreign Travel: No Contact w/other who traveled: No Recent Hopitalizations: No Recent Infectious Disease Expo: No Immunizations Up To Date Date of Influenza Vaccine: Apr 09, 2019 Seasonal Allergies Seasonal Allergies: No Past Medical History Surgeries: Gallbladder, Hysterectomy, Tubal Ligation Cardiac: High Cholesterol, Hypertension Neurological: Stroke Gastrointestinal: Gastroesophageal Reflux Endocrine: Diabetes, Insulin dep History of Blood Disorders: No Adverse Reaction to Blood Rainey: No Family History Reviewed Nursing Family Hx Review of Systems Constitutional: no symptoms reported EENTM: no symptoms reported Respiratory: short of breath Cardiovascular: chest pain Gastrointestinal: no symptoms reported Genitourinary: no symptoms reported Musculoskeletal: no symptoms reported Skin: no symptoms reported Psychiatric/Neurological: No Symptoms Reported Physical Exam Physical Exam Vital Signs Vital Signs - First Documented 05/24/19 05/24/19 05/24/19 11:15 18:04 23:55 Temp 35.9 Pulse 69 Resp 18 B/P (MAP) 147/58 (87) Pulse Ox 95 O2 Delivery Nasal Cannula O2 Flow Rate 3.00 FiO2 32 Capillary Refill : Less Than 3 Seconds Height, Weight, BMI Height: '" Weight: lbs. oz. kg; 42.10 BMI Method: General Appearance: No Apparent Distress, WD/WN, Obese HEENT: PERRL/EOMI, Pharynx Normal, Other (wearing glasses, multicolored hair) Neck: Normal Inspection, Supple Respiratory: Lungs Clear, No Respiratory Distress, Decreased Breath Sounds Cardiovascular: Regular Rate, Rhythm, No Edema, No Murmur Gastrointestinal: Normal Bowel Sounds, Non Tender, Soft Extremity: Normal Inspection, Non Tender, No Pedal Edema Neurologic/Psychiatric: Alert, Oriented x3, No Motor/Sensory Deficits, Normal Mood/Affect Skin: Normal Color, Warm/Dry Lymphatic: No Adenopathy Results Results/Procedures Labs Laboratory Tests 05/24/19 11:15 05/25/19 05:25 Patient resulted labs reviewed. Imaging: Reviewed Imaging Films, Reviewed Imaging Report Assessment/Plan Admission Diagnosis Acute on chronic hypoxemic respiratory failure Admission Status: Observation Assessment and Plan Acute on chronic hypoxemic respiratory failure Acute COPD exacerbation Morbid obesity GAVI Possible pulmonary hypertension -Labs not indicative of infection -CXR unrevealing -CTA without PE or consolidation -Previously requiring nocturnal oxygen -Oxygen evaluation revealed 6 L requirement at rest and 10 L with activity -Begin steroids for COPD exacerbation -MAT protocol -Pulmonary consulted, following Chest pain HTN HLD -Troponins normal -Cardiology consulted, following -Planning for outpatient stress test -Continue home antihypertensives and statin Type 2 diabetes mellitus -Home regimen: Lantus 110 units nightly, Novolog 50 units with meals -Levemir 60 units twice daily -Novolog 50 units with meals -SSI Level C -Check 2 am blood sugar with correction level C in setting of steroid use GERD -Continue PPI DVT Prophylaxis: Lovenox Diagnosis/Problems Diagnosis/Problems (1) Acute on chronic respiratory failure with hypoxemia Status: Acute (2) COPD with acute exacerbation Status: Acute (3) Morbid obesity Status: Chronic (4) GAVI (obstructive sleep apnea) Status: Chronic (5) T2DM (type 2 diabetes mellitus) Status: Chronic Qualifiers: 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: with nursing home use Diabetes mellitus complication status: with hyperglycemia Qualified Codes: E11.65 - Type 2 diabetes mellitus with hyperglycemia; Z79.4 - USP (current) use of insulin (6) HTN (hypertension) Status: Chronic Qualifiers: Hypertension type: essential hypertension Qualified Codes: I10 - Essential (primary) hypertension (7) HLD (hyperlipidemia) Status: Chronic (8) GERD (gastroesophageal reflux disease) Status: Chronic Qualifiers: Esophagitis presence: esophagitis presence not specified Qualified Codes: K21.9 - Gastro-esophageal reflux disease without esophagitis (9) Chest pain Status: Acute Clinical Quality Measures DVT/VTE Risk/Contraindication: Risk Factor Score Per Nursin RFS Level Per Nursing on Admit: 4+=Very High JACQUELINE DANIELS MD May 25, 2019 12:25 POS
[2019-05-25 16:08] VITALS: BP 125/70
[2019-05-25] MEDS: methylPREDNISolone 40 MG/ML (Solu-MEDROL) VIAL IV SCH ×2 (17:26→23:30)
[2019-05-25 20:00] VITALS: BP 106/57
[2019-05-26] VITALS: BP 119/60
[2019-05-26] MEDS ORDERED: inSUlin ASPART (NovoLOG) 1 UNIT/0.01 ML (CHARGE PER UNIT) SC SCH (02:00)
[2019-05-26] MEDS: ACETAMINOPHEN 325 MG TABLET PO PRN ×3 (02:00→10:53)
[2019-05-26] MEDS: RT-ALBUTEROL/IPRATROPIUM 3 ML (DUONEB) VIAL INH SCH ×2 (02:43→09:45)
[2019-05-26 04:00] VITALS: BP 117/63
[2019-05-26 06:40] LABS: BASOPHILS % (AUTO) 0 % (0-10); EOSINOPHILS % (AUTO) 0 % (0-10); HEMATOCRIT 43 % (35-52); HEMOGLOBIN 14.2 G/DL (11.5-16.0); LYMPHOCYTES # (AUTO) 0.5 X 10^3 (1.0-4.0); LYMPHOCYTES % (AUTO) 6 % (12-44); MEAN CORPUSCULAR HEMOGLOBIN 29 PG (25-34); MEAN CORPUSCULAR HGB CONC 33 G/DL (32-36); MEAN CORPUSCULAR VOLUME 88 FL (80-99); MEAN PLATELET VOLUME 10.8 FL (7.4-10.4); MONOCYTES # (AUTO) 0.1 X 10^3 (0.0-1.0); MONOCYTES % (AUTO) 1 % (0-12); NEUTROPHILS # (AUTO) 7.1 X 10^3 (1.8-7.8); NEUTROPHILS % (AUTO) 92 % (42-75); PLATELET COUNT 181 10^3/uL (130-400); RED CELL DISTRIBUTION WIDTH 15.9 % (10.0-14.5); WHITE BLOOD COUNT 7.7 10^3/uL (4.3-11.0)
[2019-05-26 06:48] LABS: ABG OXYGEN SATURATION 96 % (94-100); ABG PCO2 39 MMHG (35-45); ABG PH 7.42 (7.37-7.43); ABG PO2 75 MMHG (79-93); ABG TCO2 26.2 MMOL/L (21.0-31.0)
[2019-05-26 06:51] LABS: ALLENS TEST YES-POS; INSPIRED O2 4L; PATIENT TEMP 36.9; VENTILATOR NO
[2019-05-26] MEDS: ENOXAPARIN 40 MG/0.4 ML (LOVENOX) SYR SQ SCH (06:57)
[2019-05-26 06:58] LABS: ALBUMIN 3.7 GM/DL (3.2-4.5); BILIRUBIN,TOTAL 0.8 MG/DL (0.1-1.0); CALCIUM 9.3 MG/DL (8.5-10.1); CREATININE SERUM 1.27 MG/DL (0.60-1.30); MAGNESIUM 1.8 MG/DL (1.6-2.4); PHOSPHORUS 3.3 MG/DL (2.3-4.7); POTASSIUM 4.4 MMOL/L (3.6-5.0); TOTAL PROTEIN 7.2 GM/DL (6.4-8.2)
[2019-05-26] MEDS: inSUlin ASPART (NovoLOG) 1 UNIT/0.01 ML (CHARGE PER UNIT) SC SCH ×3 (06:58→10:52)
[2019-05-26] MEDS ORDERED: predniSONE 20 MG TAB PO SCH (07:00)
[2019-05-26 07:30] VITALS: BP 151/73
--- NOTE | 2019-05-26 07:54 | Cardiology Progress Note ---
Subjective Date Seen by Provider: May 26, 2019 Time Seen by Provider: 07:53 Subjective/Events-last exam Patient is sitting in a chair, feeling better, no new complaint Review of Systems General: No Chills, No Night Sweats, No Fatigue, No Malaise, No Appetite, No Other HEENT: No Head Aches, No Visual Changes, No Eye Pain, No Ear Pain, No Dysphasia, No Sinus Congestion, No Post Nasal Drip, No Sore Throat, No Other Pulmonary: Dyspnea; No Cough, No Pleuritic Chest Pain, No Other Cardiovascular: No: Chest Pain, Palpitations, Orthopnea, Paroxysmal Noc. Dyspnea, Edema, Lt Headedness, Other Objective-Cardiology Exam Last Set of Vital Signs Vital Signs 05/24/19 05/26/19 23:55 07:30 Temp 36.6 Pulse 80 Resp 18 B/P (MAP) 151/73 (99) Pulse Ox 95 O2 Delivery Nasal Cannula O2 Flow Rate 4.00 FiO2 32 Capillary Refill : Less Than 3 Seconds I&O Intake and Output 05/26/19 00:00 Intake Total 1860 ml Output Total 900 ml Balance 960 ml Intake Oral 1860 ml Output Urine Total 900 ml # Voids 6 # Bowel Movements 3 General: Alert, Oriented X3, Cooperative HEENT: Atraumatic, PERRLA Neck: Supple, No JVD, No Thyromegaly Lungs: Clear to Auscultation, Normal Air Movement Heart: Regular Rate, Normal S1, Normal S2, No Murmurs Abdomen: Normal Bowel Sounds, Soft, No Tenderness, No Hepatosplenomegaly, No Masses Extremities: No Clubbing, No Cyanosis, No Edema, Normal Pulses, No Tenderness/Swelling Skin: No Rashes, No Breakdown, No Significant Lesion Neuro: Normal Gait, Normal Speech, Strength at 5/5 X4 Ext, Normal Tone, Sensation Intact Psych/Mental Status: Mental Status NL, Mood NL Results Lab Laboratory Tests 05/26/19 06:30 A/P-Cardiology Admission Diagnosis Chest pain Shortness of breath Hypertension Hyperlipidemia Assessment/Plan Chest pain nonspecific etiology, atypical in presentation, no acute EKG changes, cardiac enzymes are negative. Patient is Going to contact my office and schedule an appointment as an outpatient Shortness of breath on exertion, history of COPD, oxygen dependent, reporting improvement. Managed by primary care team Hypertension, monitor blood pressure Hyperlipidemia, maintained on statin. Continue to monitor lipids Diabetes mellitus, followed and managed by primary care physician Obesity, BMI 42, discussed weight loss and exercise Tobaccoism, patient has stopped smoking recently, encouraged to continue with smoking cessation From cardiology standpoint okay for discharge and follow-up as an outpatient, I will schedule stress test as an outpatient. Clinical Quality Measures DVT/VTE Risk/Contraindication: Risk Factor Score Per Nursin RFS Level Per Nursing on Admit: 4+=Very High MILA ADEN MD May 26, 2019 07:54 POS
[2019-05-26] MEDS: DULoxetine 30 MG (CYMBALTA) CAP PO SCH (08:08)
[2019-05-26] MEDS: PREGABALIN 150 MG (LYRICA) CAPSULE PO SCH (08:09)
[2019-05-26] MEDS: DOCUSATE SODIUM 100 MG (COLACE) CAP PO SCH (08:09)
[2019-05-26] MEDS: PANTOPRAZOLE 40 MG (PROTONIX) TAB PO SCH (08:09)
[2019-05-26] MEDS: SENNOSIDES 8.6 MG (SENOKOT) TAB PO SCH (08:09)
[2019-05-26] MEDS: CLOPIDOGREL 75 MG (PLAVIX) TABLET PO SCH (08:09)
[2019-05-26] MEDS: LOSARTAN 50 MG (COZAAR) TAB PO SCH (08:09)
[2019-05-26] MEDS: LORATADINE (CLARITIN) 10 MG TAB PO SCH (08:09)
[2019-05-26] MEDS: rOPINIRole 1 MG (REQUIP) TABLET PO SCH (08:09)
--- NOTE | 2019-05-26 08:25 | Diagnostic Imaging Report ---
INDICATION: Shortness of breath. TIME OF EXAM: 7:38 AM CORRELATION is made with prior chest from 05/24/2019. FINDINGS: The heart is enlarged but stable. Lungs are clear. There is no infiltrate. No effusion or pneumothorax is detected. IMPRESSION: Stable chest. No acute cardiopulmonary process is detected. Dictated by: Dictated on workstation # [id number]
--- NOTE | 2019-05-26 09:30 | NUR ---
WALKED PT ON 4 LPM NC. SPO2 DROPPED TO 85%. INCREASED O2 TO 6 LPM AND CONTINUED TO WALK PT. SPO2 STAYED FROM 88-90% WITH EXERTION. Addendum: 05/26/19 at 0949 by JASMYN CHOI RT NO DISTRESS NOTED ON EXERTION.
[2019-05-26] MEDS ORDERED: PRD20T PO (10:02)
--- NOTE | 2019-05-26 10:11 | Discharge Summary ---
Discharge Summary Hospital Course Was the Problem List Reviewed?: Yes Problems/Dx: (1) Acute on chronic respiratory failure with hypoxemia Status: Acute (2) COPD with acute exacerbation Status: Acute (3) Morbid obesity Status: Chronic (4) GAVI (obstructive sleep apnea) Status: Chronic (5) T2DM (type 2 diabetes mellitus) Status: Chronic Qualifiers: Qualified Codes: E11.65 - Type 2 diabetes mellitus with hyperglycemia; Z79.4 - intermediate (current) use of insulin (6) HTN (hypertension) Status: Chronic Qualifiers: Qualified Codes: I10 - Essential (primary) hypertension (7) HLD (hyperlipidemia) Status: Chronic (8) GERD (gastroesophageal reflux disease) Status: Chronic Qualifiers: Qualified Codes: K21.9 - Gastro-esophageal reflux disease without esophag itis (9) Chest pain Status: Resolved Hospital Course Date of Admission: May 24, 2019 at 19:13 Admission Diagnosis : Acute respiratory failure with hypoxia Family Physician/Provider: Rukhsana Perez Physician Date of Discharge: 05/26/19 Discharge Diagnosis: Acute on chronic respiratory failure with hypoxia, acute COPD exacerbation Hospital Course: Glendy Mills is a 54yoF who presented with hypoxia and was admitted with acute on chronic respiratory failure with hypoxia due to acute COPD exacerbation. She was treated with steroids and improved. Her scans and labs were negative for pneumonia and pulmonary embolism. She also had some chest tightness on admission and she was evaluated by cardiology who plans to do a stress test as an outpatient. She was previously on nocturnal oxygen, but is now requiring continuous oxygen (4 L at rest and 6 L with activity). Labs and Pending Lab Test: Laboratory Tests 05/25/19 11:23: Glucometer 237H 05/25/19 15:43: Glucometer 148H 05/25/19 20:42: Glucometer 336H 05/26/19 01:28: Glucometer 279H 05/26/19 05:15: Glucometer 350H 05/26/19 06:30: White Blood Count 7.7, Red Blood Count 4.90, Hemoglobin 14.2, Hematocrit 43, Mean Corpuscular Volume 88, Mean Corpuscular Hemoglobin 29, Mean Corpuscular Hemoglobin Concent 33, Red Cell Distribution Width 15.9H, Platelet Count 181, Mean Platelet Volume 10.8H, Neutrophils (%) (Auto) 92H, Lymphocytes (%) (Auto) 6L, Monocytes (%) (Auto) 1, Eosinophils (%) (Auto) 0, Basophils (%) (Auto) 0, Neutrophils # (Auto) 7.1, Lymphocytes # (Auto) 0.5L, Monocytes # (Auto) 0.1, Eosinophils # (Auto) 0.0, Basophils # (Auto) 0.0, Sodium Level 136, Potassium Level 4.4, Chloride Level 101, Carbon Dioxide Level 21, Anion Gap 14, Blood Urea Nitrogen 23H, Creatinine 1.27, Estimat Glomerular Filtration Rate 44, BUN/Creatinine Ratio 18, Glucose Level 368H, Calcium Level 9.3, Corrected Calcium 9.5, Phosphorus Level 3.3, Magnesium Level 1.8, Total Bilirubin 0.8, Aspartate Amino Transf (AST/SGOT) 20, Alanine Aminotransferase (ALT/SGPT) 20, Alkaline Phosphatase 135, B-Type Natriuretic Peptide 76.8, Total Protein 7.2, Albumin 3.7 05/26/19 06:41: Blood Gas Puncture Site RIGHT RADIAL, Blood Gas Patient Temperature 36.9, Arterial Blood pH 7.42, Arterial Blood Partial Pressure CO2 39, Arterial Blood Partial Pressure O2 75L, Arterial Blood HCO3 25, Arterial Blood Total CO2 26.2, Arterial Blood Oxygen Saturation 96, Arterial Blood Base Excess 1.0, Jos Test YES-POS, Blood Gas Ventilator Setting NO, Blood Gas Inspired Oxygen 4L Home Meds Active Prednisone 20 Mg Tab 40 Mg PO DAILY 4 Days Reported Lyrica (Pregabalin) 150 Mg Capsule 150 Mg PO BID Novolog (Insulin Aspart) 100 Unit/1 Ml Susp 50 Unit SQ TIDAC Acetaminophen 500 Mg Tablet 1,000 Mg PO TID PRN Diclofenac Sodium 100 Gm Gel..gram. 4 Gm TP BID PRN Ozempic (Semaglutide) 0.25 Mg/0.2 Ml Pen.injctr 0.5 Mg SQ WEEK Duloxetine HCl 60 Mg Capsule.dr 60 Mg PO DAILY Atorvastatin Calcium 80 Mg Tablet 80 Mg PO HS Potassium Chloride 20 Meq Tablet.er 20 Meq PO DAILY Jardiance (Empagliflozin) 25 Mg Tablet 12.5 Mg PO Q48H Losartan Potassium 50 Mg Tablet 50 Mg PO DAILY Cetirizine HCl 10 Mg Tab.chew 10 Mg PO DAILY Ropinirole HCl 1 Mg Tablet 1 Mg PO BID Hydrochlorothiazide 25 Mg Tablet 25 Mg PO DAILY Plavix (Clopidogrel Bisulfate) 75 Mg Tablet 75 Mg PO DAILY Pantoprazole Sodium 40 Mg Tablet. 40 Mg PO DAILY Assessment/Pt Instructions Take medications as prescribed. Complete your course of Prednisone. Begin using continuous oxygen (4 L at rest and 6 L with activity). Follow up with Dr. Owens. Discharge Planning: <30 minutes discharge planning Discharge Instructions Discharge Diet: No Restrictions Activity as Tolerated: Yes Consultations Pulmonology, Cardiology Discharge Physical Examination Vital Signs Vital Signs Date Time Temp Pulse Resp B/P (MAP) Pulse Ox O2 Delivery O2 Flow Rate FiO2 05/26/19 09:45 94 Nasal Cannula 4.00 05/26/19 07:30 36.6 80 18 151/73 (99) 05/24/19 23:55 32 General Appearance: No Apparent Distress, WD/WN, Obese HEENT: PERRL/EOMI, Pharynx Normal Respiratory: Lungs Clear, Normal Breath Sounds, No Respiratory Distress Cardiovascular: Regular Rate, Rhythm, No Edema, No Murmur Gastrointestinal: Normal Bowel Sounds, Non Tender, Soft Extremity: Normal Inspection, Non Tender, No Pedal Edema Skin: Normal Color, Warm/Dry Neurologic/Psychiatric: Alert, Oriented x3, No Motor/Sensory Deficits, Normal M ood/Affect Allergies: Coded Allergies: lisinopril (Verified Allergy, Unknown, 05/24/19) simvastatin (Verified Allergy, Unknown, weakness, 05/24/19) Discharge Summary Date of Admission May 24, 2019 at 19:13 Date of Discharge Discharge Date: May 26, 2019 Discharge Time: 10:10 Admission Diagnosis Acute on chronic hypoxemic respiratory failure Consults/Procedures Consulations Pulmonology, Cardiology Discharge Diagnosis Acute on chronic hypoxemic respiratory failure, Acute COPD exacerbation (1) Acute on chronic respiratory failure with hypoxemia Status: Acute (2) COPD with acute exacerbation Status: Acute (3) Morbid obesity Status: Chronic (4) GAVI (obstructive sleep apnea) Status: Chronic (5) T2DM (type 2 diabetes mellitus) Status: Chronic Qualifiers: Qualified Codes: E11.65 - Type 2 diabetes mellitus with hyperglycemia; Z79.4 - intermediate (current) use of insulin (6) HTN (hypertension) Status: Chronic Qualifiers: Qualified Codes: I10 - Essential (primary) hypertension (7) HLD (hyperlipidemia) Status: Chronic (8) GERD (gastroesophageal reflux disease) Status: Chronic Qualifiers: Qualified Codes: K21.9 - Gastro-esophageal reflux disease without esophagitis (9) Chest pain Status: Resolved Clinical Quality Measures DVT/VTE Risk/Contraindication: Risk Factor Score Per Nursin RFS Level Per Nursing on Admit: 4+=Very High JACQUELINE DANIELS MD May 26, 2019 10:10 POS
[2019-05-26 11:15] VITALS: BP 151/73
--- NOTE | 2019-05-26 11:15 | NUR ---
SILVIO BAIRD demonstrates understanding of discharge instructions and accurately returns instructions upon questioning. Copy of Post-Discharge Instructions given to PT. SILVIO BAIRD is able to manage continuing needs after discharge. Patients belongings returned to PT. Patient discharged from [facility] on 05/26/19 at 11:15. SILVIO BAIRD left floor via W/C, accompanied by STAFF AND FAMILY PER AUTO.
== END 2019-05-26 11:15 | disposition home or self-care (01) | DRG 189 ==
LOC: EDUNIT# 10:47 → ER FS 10:49 → 4TH 14:13 → UNDOADMOB 14:13 → 4TH 17:00 → INTOOBSV 19:13 → OBSVTOIN 19:13 → UNDODISIN 05-26 11:15
PROVIDERS: ADMIT Internal Medicine; ATTEND Internal Medicine
DX: J96.21 Acute and chronic respiratory failure with hypoxia (principal); J44.1 Chronic obstructive pulmonary disease with (acute) exacerbation; E66.01 Morbid (severe) obesity due to excess calories; G47.33 Obstructive sleep apnea (adult) (pediatric); Z68.41 Body mass index [BMI] 40.0-44.9, adult; E11.65 Type 2 diabetes mellitus with hyperglycemia; I27.20 Pulmonary hypertension, unspecified; I11.0 Hypertensive heart disease with heart failure; I50.9 Heart failure, unspecified; E78.5 Hyperlipidemia, unspecified; K21.9 Gastro-esophageal reflux disease without esophagitis; Z79.4 Long term (current) use of insulin; Z86.73 Personal history of transient ischemic attack (TIA), and cerebral infarction without residual deficits; Z87.891 Personal history of nicotine dependence; Z99.81 Dependence on supplemental oxygen
CPT/HCPCS: 36415; 36600; 71045; 71275; 80053; 82805; 82962; 83735; 83880; 84100; 84484; 85025; 85379; 85610; 85730; 93005; 94640; 94760; 94761; 96372; G0378

== ENCOUNTER → 2019-07-12 | Outpatient (CLI) | payer OTHER ==
[~2019-07-12] MED LIST: ACET-93 PO; ALB0.5V INH; ASPI-983 PO; ATOR80TA76 PO; BETA15CR14 TP; BUDE10.2 IH; CETI10TA23 PO; CLOP75TA69 PO; DICL100G31 TP; DULO60CA59 PO; EMPA25TA PO; FLUT9.9S NS; HYDR25TA4 PO; INSU100V16 SQ; INSU100V6 SQ; LD5O35 TP; LIDO15CR TP; LIDO28.35 TP; LOSA50TA63 PO; MULT-1021 PO; PANT40TA3 PO; POTA-51 PO; PRD20T PO; PREG150C PO; ROPI1TAB2 PO; RT-ALBUINH IH; RT-ALBUTEROL SULF 2.5 MG/3 ML PRE-MIX VIAL INH ONE; RT-ALBUTEROL SULF 2.5 MG/3 ML PRE-MIX VIAL ONE; SEMA0.25 SQ
== END | disposition home or self-care (01) ==
LOC: RT 09:36
PROVIDERS: ATTEND Nurse Practitioner Family
DX: J44.9 Chronic obstructive pulmonary disease, unspecified (principal); G47.33 Obstructive sleep apnea (adult) (pediatric); E66.01 Morbid (severe) obesity due to excess calories; R91.8 Other nonspecific abnormal finding of lung field; Z72.0 Tobacco use

== ENCOUNTER → 2019-07-15 | Outpatient (CLI) | payer OTHER ==
[~2019-07-15] VITALS: Ht 172 cm; Wt 129.0 kg
[~2019-07-15] MED LIST changes: -ALB0.5V INH; -ASPI-983 PO; -BETA15CR14 TP; -BUDE10.2 IH; +CATHETER FLUSH 10 ML SYR IV PRN; -FLUT9.9S NS; -INSU100V6 SQ; -LD5O35 TP; -LIDO15CR TP; -LIDO28.35 TP; -MULT-1021 PO; +REGADENOSON 0.4 MG/5 ML SYR (LEXISCAN) IV ONE; -RT-ALBUINH IH; -RT-ALBUTEROL SULF 2.5 MG/3 ML PRE-MIX VIAL INH ONE; -RT-ALBUTEROL SULF 2.5 MG/3 ML PRE-MIX VIAL ONE
[2019-07-15 09:27] VITALS: BP 158/65
[2019-07-15 09:33] VITALS: BP 133/87
--- NOTE | 2019-07-15 13:16 | STRESS TEST ---
DATE OF SERVICE: 07/15/2019 LEXISCAN MYOVIEW STRESS TEST REFERRING PHYSICIAN: Dr. Nara Lara. Baseline heart rate is 75. Baseline blood pressure is 158/65. Baseline EKG is sinus rhythm with right bundle branch block. In summary, the patient was injected with 10.67 mCi of technetium-99 Myoview and the resting images were obtained. Then, the patient received 0.4 mg of Lexiscan followed by 32.0 mCi of technetium-99 Myoview. Throughout the test, there were no EKG changes. The resting and stress images were reviewed and compared in the short axis, horizontal long axis, and vertical long axis views, review of the images showed mild decreased uptake involving the inferior wall with subtle reversibility. SSS is 5, SDS 2, TID value 1.08. On the gated images, the left ventricle appeared to be normal size with normal contractility. Calculated ejection fraction is 81%. CONCLUSION: 1. The patient tolerated Lexiscan well. 2. Mild decreased uptake involving the inferior wall and inferoapical segment with subtle reversibility. 3. Normal left ventricular size and normal contractility. Calculated ejection fraction is 81%. Job ID: [id number] DocumentID: [id number] Dictated Date: 07/15/2019 12:08:29 Rural Electrification Engineer Date: 07/15/2019 13:15:01 Dictated By: MILA ADEN MD
== END ==
LOC: CARD 07:21
PROVIDERS: ATTEND Internal Medicine Cardiovascular Disease
DX: I10 Essential (primary) hypertension (principal); E11.9 Type 2 diabetes mellitus without complications; R07.89 Other chest pain; R06.02 Shortness of breath
CPT/HCPCS: 78452; 93017

== ENCOUNTER 2019-07-31 08:55 | Day surgery (SDC) | payer OTHER ==
[~2019-07-31] VITALS: Ht 175 cm; Wt 133.0 kg
[2019-07-31] VITALS (9 sets, daily range): BP systolic 122–161; BP diastolic 52–65
[~2019-07-31 08:55] MED LIST changes: -CATHETER FLUSH 10 ML SYR IV PRN; -REGADENOSON 0.4 MG/5 ML SYR (LEXISCAN) IV ONE
[2019-07-31] MEDS ORDERED: NS IV 1000 ML 1,000 ML ONE (09:09)
[2019-07-31] MEDS ORDERED: LIDOCAINE 1% INJ 20 ML 20 ML VIAL ONE (09:09)
[2019-07-31] MEDS ORDERED: HEParin (CATH LAB) 2,000 ML IV ONE (09:09)
[2019-07-31] MEDS ORDERED: NS IV 1000 ML 1,000 ML IV SCH ×2 (09:15→13:29)
--- NOTE | 2019-07-31 09:44 | Diagnostic Imaging Report ---
INDICATION: Chest pain, dyspnea and abnormal stress test. Upright portable AP view of chest is obtained. Comparison is made study of 05/26/2019 FINDINGS: There is stable mild cardiomegaly. Pulmonary vascularity is unremarkable. There is no evidence of pneumothorax or consolidation. No significant pleural fluid is seen. IMPRESSION: Cardiomegaly without evidence of acute abnormality or adverse change. Dictated by: Dictated on workstation # [id number]
[2019-07-31 09:50] LABS: HEMOGLOBIN 13.6 G/DL (11.5-16.0); MEAN PLATELET VOLUME 10.7 FL (7.4-10.4); RED CELL DISTRIBUTION WIDTH 14.8 % (10.0-14.5); WHITE BLOOD COUNT 6.4 10^3/uL (4.3-11.0)
[2019-07-31 09:52] LABS: BILIRUBIN,URINE NEGATIVE (NEGATIVE); CLARITY,URINE CLEAR; COLOR,URINE YELLOW; GLUCOSE, URINE (UA) 3+ (NEGATIVE); KETONES,URINE NEGATIVE (NEGATIVE); LEUKOCYTE ESTERASE ,URINE NEGATIVE (NEGATIVE); NITRITE,URINE NEGATIVE (NEGATIVE); PROTEIN,URINE NEGATIVE (NEGATIVE)
[2019-07-31 10:00] LABS: BACTERIA,URINE FEW /HPF
[2019-07-31 10:02] LABS: PROTHROMBIN TIME PATIENT 13.9 SEC (12.2-14.7)
[2019-07-31 10:11] LABS: ALBUMIN 3.5 GM/DL (3.2-4.5); BILIRUBIN,TOTAL 0.8 MG/DL (0.1-1.0); CALCIUM 9.3 MG/DL (8.5-10.1); CREATININE SERUM 0.99 MG/DL (0.60-1.30); POTASSIUM 3.8 MMOL/L (3.6-5.0); TOTAL PROTEIN 6.6 GM/DL (6.4-8.2)
[2019-07-31] MEDS ORDERED: ASPI-983 PO (10:11)
[2019-07-31] MEDS ORDERED: MULT-1021 PO (10:11)
[2019-07-31] MEDS ORDERED: INSU100V6 SQ (10:34)
[2019-07-31] MEDS ORDERED: LIDO28.35 TP (10:41)
[2019-07-31] MEDS ORDERED: ALB0.5V INH (10:41)
[2019-07-31] MEDS ORDERED: BETA15CR14 TP (10:41)
[2019-07-31] MEDS ORDERED: BUDE10.2 IH (10:41)
[2019-07-31] MEDS ORDERED: LIDO15CR TP (10:41)
[2019-07-31] MEDS ORDERED: RT-ALBUINH IH (10:41)
[2019-07-31] MEDS ORDERED: LD5O35 TP (10:42)
[2019-07-31] MEDS ORDERED: FLUT9.9S NS (10:45)
--- NOTE | 2019-07-31 10:49 | NUR ---
SPOKE WITH THE PT (SHE HAD HER MED BOTTLES) WELL CALLING THE [facility] TO COMPLETE THE MED REC. PT WAS ABLE TO TELL ME HOW/WHEN SHE TAKES EACH MEDICATION. ROPINIROLE: PT'S LABEL ON THE BOTTLE SAYS IT IS 0.5MG, HOWEVER THE PT SAYS SHE TAKES 1MG BID. UPON FURTHER INSPECTION THERE WERE MULTIPLE DIFFERENT TABLETS IN THE BOTTLE. THE PT CONFESSED TO DUMPING NEW BOTTLES SHE GETS FROM THE MAIL ORDER IN TO OLD BOTTLES (ALL HER BOTTLES HAD OLD FILL DATES ON THEM). WHEN I CHECKED THE DRUG IDENTIFIER IT LOOKED LIKE SHE HAD 0.5MG TABS MIXED IN WITH 2 DIFFERENT MANUFACTURERS OF THE 1MG- LEADING HER TO HAVE AT LEAST 3 DIFFERENT LOOKING TABS IN THE BOTTLE. I LET THE PT KNOW AND SHOWED HER THE 0.5MG (YELLOW) AND SHE WAS GOING TO SORT THEM OUT WHEN SHE GOT HOME. I ALSO ADVISED THE PT WHEN SHE GETS NEW BOTTLE FROM MAIL ORDER TO NOT "MIX BOTTLES" THE FOLLOWING MEDICATIONS WERE ON THE MEDICATION LIST IN HER CLINICAL DATA ASSISTANT CHART: HCTZ: PT SAID THIS MED WAS DC'D ON 07-26-2019 CHANTIX: PT SAID SHE NO LONGER TAKES THIS MED FOR THOSE REASONS BOTH THE MEDICAITONS WERE LEFT OFF THE MED REC. THE FOLLOWING FILL DATES WERE TOLD TO ME FROM MA: 01-28-2019 FLONASE #3 04-23-2019 LANTUS #10 VIALS/90DS 04-29-2019 LOSARTAN #45/90DS 05-13-2019 ATORVASTATIN #90/90DS 06-28-2019 CLOPIDOGREL #90/90DS 07-02-2019 PANTOPRAZOLE #90/90DS 07-04-2019 EMPAGLIFLOZIN #45/90DS 07-11-2018 DULOXETINE #30/30DS 07-11-2019 PREGABALIN #60/30DS 07-12-2019 DICLOFENAC GEL #2 TUBES 07-12-2019 SYMBICORT #3/90DS 07-12-2019 ALBUTEROL HFA #3 07-12-2019 ALBUTEROL NEB VIAL #120 VIALS 07-12-2019 ROPINIROLE #180/90DS 07-18-2019 OZEMPIC #4/28DS 07-18-2019 NOVOLOG #15 PENS 07-18-2019 BETAMETHASONE 45GM #1 OTC MEDS: [employer] CETIRIZINE TYLENOL ASPIRIN LIDOCAINE OINT
[2019-07-31] MEDS ORDERED: HEParin 1000 UNIT/ML (10ML VIAL) FOR BOLUS ONE (12:31)
[2019-07-31] MEDS ORDERED: VERAPAMIL 5 MG/2 ML (CALAN) VIAL IV ONE (12:31)
[2019-07-31] MEDS ORDERED: MIDAZOLAM 5 MG/5 ML (VERSED) VIAL ONE (12:31)
[2019-07-31] MEDS ORDERED: fentaNYL INJECTION 100 MCG/2 ML AMP ONE (12:31)
[2019-07-31] MEDS ORDERED: NITRO DRIP 25000 MCG/D5W 250 ML IV ONE (12:31)
--- NOTE | 2019-07-31 13:29 | Cardiac Procedure Note-CS/ASA ---
Pre-Procedure Note Pre-Op Procedure Note H&P Reviewed The H&P was reviewed, patient examined and no changes noted. Date H&P Reviewed: Jul 31, 2019 Time H&P Reviewed: 11:00 Conscious Sedation Pre-Proced Time 11:00 ASA Score 3 For ASA 3 and 4: Consider anesthesia and medical clearance. Also, for patients with a history of failed moderate sedation consider anesthesia. Airway Lungs Heart ASA score ASA 1: a normal healthy patient ASA 2: a patient with a mild systemic disease (mid diabetes, controlled hypertension, obesity x ASA 3: a patient with a severe systemic disease that limits activity (angina, COPD, prior Myocardial infarction) ASA 4: a patient with an incapacitating disease that is a constant threat to life (CHF, renal failure) ASA 5: a moribund patient not expected to survive 24 hrs. (ruptured aneurysm) ASA 6: a declared brain- patient whose organs are being harvested. For emergent operations, add the letter E after the classification Mallampati Classification Grade 3 Sedation Plan Analgesia, Amnesia, Plan communicated to team members, Discussed options with patient/fam, Discussed risks with patient/fam The patient is an appropriate candidate to undergo the planned procedure, sedation, and anesthesia. The patient immediately re-assessed prior to indication. MILA ADEN MD Jul 31, 2019 13:29
--- NOTE | 2019-07-31 13:31 | Discharge Inst-Post CATH ---
Discharge Inst-CATH/EP Problems Reviewed?: Yes Post Cardiac Cath/EP D/C Inst Follow Up/Plan Appointment with Dr Lanier's office in 4 weeks <b>CARDIAC CATH/EP PROCEDURE DISCHARGE INSTRUCTIONS</b> ACTIVITY * Go Home directly and rest. * Limit activity of the leg (or wrist if it was used) for 7 days including aerobics, swimming, jogging, bicycling, etc. * Restrict stair-climbing for 7 days if possible, if not, climb up with your non-cath leg, then bring together on the same step. * Avoid lifting, pushing, pulling or excessive movement of the affected extremity for 7 days. * Customary sexual activity may be resumed after 2 days-use caution not to use a position that strains or causes pain to the affected extremity. * No driving for 24 hours. * NO SMOKING. * Avoid straining for bowel movements for 7 days. * Gentle walking on level ground is allowed. * Returning to work will depend on the type of procedure and the results. Your doctor will discuss this with you. CALL YOUR DOCTOR FOR ANY OF THE FOLLOWING: *If bleeding from the puncture site occurs- Apply gentle pressure to site with clean cloth and call your doctor or EMS. * If a knot or lump forms under the skin, increases in size, or causes pain. * If bruising appears to be worsening or moving further down your leg instead of disappearing. * Temperature above 101 F. CARE OF YOUR GROIN INCISION; * Bruising or purple discoloration of the skin near the puncture site is common. * You may shower only, no bathtub bathing for 5 days. Be careful to avoid slipping as your leg may feel stiff. * If a closure device was used on your femoral artery, please see the attached guide regarding care of the device and your leg. * Leave dressing on FOR 24 hours. CARE OF YOUR WRIST INCISION; * Bruising or purple discoloration of the skin near the puncture site is common. * You may shower. * DO NOT submerge wrist. * Leave dressing on FOR 24 hours. MILA LANIER MD Jul 31, 2019 13:31
--- NOTE | 2019-07-31 13:46 | Cardiac Cath Report ---
Cardiac Cath Report Physician (s)/Project Management Manager (s) Physician MILA ADEN MD Pre-Procedure Diagnosis Pre-Procedure Diagnosis: coronary artery disease Post-Procedure Note Procedure Start Date: Jul 31, 2019 Name of Procedure: Left heart catheterization Aortic arch angiogram Findings/Procedure Note PROCEDURE NOTE: 54-year-old lady with history of diabetes mellitus, hypertension, hyperlipidemia, has been having chest pain, scheduled for cardiac catheteri zation. After explaining the procedure to the patient, all pros and cons were explained, all questions were answered. The patient signed the consent and then she was placed on the cardiac catheterization laboratory. Groin was prepped SL fashion local anesthesia was used. Sheath placed in the right radial artery,[place] catheter used, advanced to the left ventricular cavity, pressure was measured, coronary angiogram was done then aortic arch angiogram was done Left ventriculogram was not done, pressure was measured Aortic arch angiogram was done At the end of the procedure the sheath was removed. Vascular band was used FINDINGS: Hemodynamics LV 129/23, end-diastolic pressure of 23 Aorta 131/68 mean of 93 ANATOMY: Left Main is free of obstructive disease Left Anterior Descending has mild disease nonobstructive disease Left Circumflex has mild disease nonobstructive disease, dominant artery Right Coronary Artery small nondominant artery, with mild disease LV Gram was not done, pressure was measured Aorta evaluation showed normal aortic arch, no dissection or aneurysm, normal origin of the right innominate artery, left subclavian and left carotid artery CONCLUSION: 1. Mild coronary artery disease nonobstructive disease 2. Mildly elevated left ventricular end-diastolic pressure 3. Normal aortic arch and great vessels of the neck DISCUSSION AND RECOMMENDATION: Medical therapy is recommended Anesthesia Type: Conscious Sedation Estimated blood loss (mL): 5 ml Contrast Amount: 52 ml Total Radiation Dose: 486 mGy Post-Procedure Diagnosis Post-operative diagnosis: Chest pain Coronary artery disease Hypertension Hyperlipidemia MILA ADEN MD Jul 31, 2019 13:46
== END 2019-07-31 16:05 | disposition home or self-care (01) ==
LOC: CATH 08:55 → SDC 13:43 → CATH 16:05
PROVIDERS: ATTEND Internal Medicine Cardiovascular Disease
DX: I25.10 Atherosclerotic heart disease of native coronary artery without angina pectoris (principal); I73.9 Peripheral vascular disease, unspecified; I65.29 Occlusion and stenosis of unspecified carotid artery; I10 Essential (primary) hypertension; E78.5 Hyperlipidemia, unspecified; E66.01 Morbid (severe) obesity due to excess calories; G47.33 Obstructive sleep apnea (adult) (pediatric); J44.9 Chronic obstructive pulmonary disease, unspecified; F17.210 Nicotine dependence, cigarettes, uncomplicated; Z68.41 Body mass index [BMI] 40.0-44.9, adult; Z88.8 Allergy status to other drugs, medicaments and biological substances; Z79.02 Long term (current) use of antithrombotics/antiplatelets; Z79.899 Other long term (current) drug therapy; Z79.4 Long term (current) use of insulin; Z82.49 Family history of ischemic heart disease and other diseases of the circulatory system
CPT/HCPCS: 36221; 36415; 71045; 80053; 80061; 81000; 85027; 85610; 85730; 87081; 93458

== ENCOUNTER 2019-08-28 10:52 | Outpatient (RCR) | payer OTHER ==
[~2019-08-28 10:52] MED LIST changes: +ALB0.5V INH; +ASPI-983 PO; +BETA15CR14 TP; +BUDE10.2 IH; +FLUT9.9S NS; +INSU100V6 SQ; +LD5O35 TP; +LIDO15CR TP; +LIDO28.35 TP; +MULT-1021 PO; +ROPI1TAB PO; -ROPI1TAB2 PO; +RT-ALBUINH IH
== END 2019-11-26 | disposition home or self-care (01) ==
LOC: PULM 10:52
PROVIDERS: ATTEND Nurse Practitioner Family
DX: R91.8 Other nonspecific abnormal finding of lung field (principal); J44.9 Chronic obstructive pulmonary disease, unspecified; G47.33 Obstructive sleep apnea (adult) (pediatric); E66.01 Morbid (severe) obesity due to excess calories; Z72.0 Tobacco use
CPT/HCPCS: 94060; 94726; 94729; 99211

== ENCOUNTER → 2019-09-16 | Outpatient (CLI) | payer OTHER ==
[~2019-09-16] MED LIST changes: +HOLD METFORMIN - RECEIVED CONTRAST 20 ML VIAL IV SCH; +IOHEXOL 350 MG/ML 100 ML (OMNIPAQUE 350) VIAL IV ONE; +NS 100 ML (IVPB) BAG IV ONE
[2019-09-16 12:16] LABS: CREATININE SERUM 1.09 MG/DL (0.60-1.30)
--- NOTE | 2019-09-16 13:32 | Diagnostic Imaging Report ---
PROCEDURE: CT angiography of the chest with contrast. TECHNIQUE: Multiple contiguous axial images were obtained through the chest after uneventful bolus administration of intravenous contrast. 3D reconstructed CTA MIP acquisitions were also performed. Auto Exposure Controls were utilized during the CT exam to meet ALARA standards for radiation dose reduction. INDICATION: Shortness of air, COPD as well as leg swelling. Correlation is made with prior CT chest study from 05/24/2019. FINDINGS: Pulmonary arterial system is without evidence of thromboembolism. No definite filling defects are seen within central, lobar or segmental branches. Aorta is normal caliber. No dissection is seen. There is small pericardial effusion. No pleural effusion is identified. No axillary lymphadenopathy is seen. There are some prominent lymph nodes in the mediastinum. An upper right paratracheal node measures 2.7 x 1.6 cm compared with 1.9 x 1.1 cm. More inferiorly paratracheal node measures 1.6 cm compared with 1.3 cm on prior. There are small lymph nodes in the alex bilaterally. There is fullness in the subcarinal region. Interlobular septal thickening is again noted, perhaps owing to edema. No parenchymal mass is identified. Previously noted fissural lymph node appears stable on the left side. Upper abdomen is unremarkable. IMPRESSION: 1. No evidence of pulmonary embolism or thoracic aortic dissection. 2. Pericardial effusion. 3. Interstitial changes, perhaps owing to edema. 4. Prominent mediastinal and hilar lymph nodes, increased when compared with prior CT from 05/24/2019. Etiology is indeterminate. Dictated by: Dictated on workstation # [id number]
--- NOTE | 2019-09-16 13:37 | Diagnostic Imaging Report ---
PROCEDURE: US Venous Lower Ext [place]. TECHNIQUE: Multiple real-time grayscale images were obtained over the lower extremities in various projections, bilaterally. Additional duplex Doppler and color Doppler images were also obtained. INDICATION: Shortness of breath and leg swelling. FINDINGS: There is no evidence of right or left lower extremity DVT. Both lower extremity deep venous systems demonstrate normal compressibility with normal response to augmentation and Valsalva. No fluid collection or mass is detected. IMPRESSION: No evidence of right or left lower extremity DVT. Dictated by: Dictated on workstation # [id number]
== END ==
LOC: RAD 11:48
PROVIDERS: ATTEND Nurse Practitioner Family
DX: I31.3 Pericardial effusion (noninflammatory) (principal); M79.89 Other specified soft tissue disorders; J44.9 Chronic obstructive pulmonary disease, unspecified; G47.33 Obstructive sleep apnea (adult) (pediatric); Z72.0 Tobacco use; G47.36 Sleep related hypoventilation in conditions classified elsewhere
CPT/HCPCS: 36415; 71275; 82565; 84520; 93970

== ENCOUNTER 2019-09-18 21:15 | Outpatient (CLI) | payer OTHER ==
[~2019-09-18 21:15] MED LIST changes: -HOLD METFORMIN - RECEIVED CONTRAST 20 ML VIAL IV SCH; -IOHEXOL 350 MG/ML 100 ML (OMNIPAQUE 350) VIAL IV ONE; -NS 100 ML (IVPB) BAG IV ONE
== END 2019-09-19 06:25 | disposition home or self-care (01) ==
LOC: SLEEP 21:15
PROVIDERS: ATTEND Nurse Practitioner Family
DX: G47.33 Obstructive sleep apnea (adult) (pediatric) (principal); J44.9 Chronic obstructive pulmonary disease, unspecified; E66.01 Morbid (severe) obesity due to excess calories; R91.8 Other nonspecific abnormal finding of lung field; Z72.0 Tobacco use
CPT/HCPCS: 95810

== ENCOUNTER 2020-03-03 13:31 | Emergency (ER) | payer OTHER ==
[~2020-03-03] VITALS: Ht 175.2 cm; Wt 127.0 kg
--- NOTE | 2020-03-03 13:45 | ED Fall/Injury ---
General Stated Complaint: FALL Source: patient, RN notes reviewed, old records History of Present Illness Date Seen by Provider: Mar 03, 2020 Time Seen by Provider: 13:35 Initial Comments This patient is a 54-year-old female presents to the [facility] department after a fall at home. Patient was outside smoking and not wearing her oxygen. Patient came and little short of breath and fall. Patient is complaining of pain to her right elbow area right hip area and neck. Patient is able to bear weight and move all extremities without difficulty. Patient does have bruising on her right arm she states those been there for about a week. Patient is wearing oxygen and satting 96% does not appear to be short of breath. Patient denies loss of consciousness. Patient was offered full medical screening exam including IV fluids further evaluation including chest x-ray and EKG. Patient declines any further evaluation but is agreeable to have x-rays of the neck right hip and right elbow. An EKG. We will continue to monitor the patient evaluate treat further as needed. Occurred: just prior to arrival Severity: mild Injuries/Pain Location: neck, upper extremity, lower extremity Context: lost balance Loss of Consciousness: no loss of consciousness Allergies and Home Medications Allergies Coded Allergies: lisinopril (Verified Allergy, Unknown, 05/24/19) metformin (Verified Allergy, Unknown, 07/31/19) saxagliptin (Verified Allergy, Unknown, 07/31/19) simvastatin (Verified Allergy, Unknown, weakness, 05/24/19) Home Medications Acetaminophen 500 Mg Tablet, 1,000 MG PO BID PRN for PAIN-MILD (1-4), (Reported) Albuterol Sulfate 2.5 Mg/0.5 Ml Vial.neb, 2.5 MG INH Q6H PRN for SHORTNESS OF BREATH, (Reported) Albuterol Sulfate 1 Puff Puff, 2 PUFF IH Q6H PRN for SHORTNESS OF BREATH, (Reported) Aspirin 81 Mg Tablet.dr, 81 MG PO HS, (Reported) Atorvastatin Calcium 80 Mg Tablet, 80 MG PO HS, (Reported) Betamethasone/Propylene Glyc 15 Gm Cream..g., 1 APPLIC TP PRN PRN for RASH, (Reported) Budesonide/Formoterol Fumarate 10.2 Gm Hfa.aer.ad, 2 PUFF IH BID, (Reported) Cetirizine HCl 10 Mg Tab.chew, 10 MG PO DAILY, (Reported) Clopidogrel Bisulfate 75 Mg Tablet, 75 MG PO HS, (Reported) Diclofenac Sodium 100 Gm Gel..gram., 4 GM TP BID PRN, (Reported) Duloxetine HCl 60 Mg Capsule.dr, 60 MG PO DAILY, (Reported) Empagliflozin 25 Mg Tablet, 12.5 MG PO DAILY, (Reported) TAKES OF A 25MG TO EQUAL 12.5MG Fluticasone Propionate 9.9 Ml [place].susp, 2 SPRAY NS DAILY PRN for CONGESTION, (Reported) 2 SPRAYS PER NOSTRIL DAILY X 2 DAYS THEN 1 SPRAY DAILY Insulin Aspart 100 Unit/1 Ml Susp, 50 UNIT SQ TIDAC, (Reported) Insulin Glargine,Hum.rec.anlog 100 Unit/1 Ml Vial, 110 UNIT SQ HS, (Reported) Lidocaine HCl 35 Gm Oint, 1 APPLIC TP PRN PRN for PAIN-BREAKTHROUGH, (Reported) Losartan Potassium 50 Mg Tablet, 25 MG PO DAILY, (Reported) TAKES OF A 50MG TO EQUAL 25MG Multivits-Min/Iron/FA/Lutein 1 Each Tablet, 1 EACH PO DAILY, (Reported) Pantoprazole Sodium 40 Mg Tablet.dr, 40 MG PO DAILY, (Reported) Pregabalin 150 Mg Capsule, 150 MG PO BID, (Reported) Ropinirole HCl 1 Mg Tablet, 1 MG PO BID, (Reported) Semaglutide 0.25 Mg/0.2 Ml Pen.injctr, 0.5 MG SQ WEEK, (Reported) Patient Home Medication List Home Medication List Reviewed: Yes Review of Systems Review of Systems Constitutional: No no symptoms reported, No see HPI, No chills, No diaphoresis, No dizziness, No fever, No malaise, No weakness, No weight gain, No weight loss, No other Eyes: Denies No Symptoms Reported, Denies See HPI, Denies Blindness, Denies Blurred Vision, Denies Drainage, Denies Decreased Acuity, Denies Foreign Body Sensation, Denies Inflammation, Denies Pain, Denies Photophobia, Denies Previous Injury, Denies Shadows, Denies Tunnel Vision, Denies Vision Changes, Denies Contact Lenses, Denies Glasses, Denies Other Ears, Nose, Mouth, Throat: denies no symptoms reported, denies see HPI, denies ear pain, denies ear discharge, denies nose pain, denies nose discharge, denies epistaxis, denies mouth pain, denies mouth swelling, denies loose teeth, denies throat pain, denies throat swelling Respiratory: No no symptoms reported, No see HPI, No cough, No dyspnea on exertion, No hemoptysis, No orthopnea, No phlegm, No short of breath, No stridor, No wheezing, No other Cardiovascular: No no symptoms reported, No see HPI, No chest pain, No edema, No Hx of Intervention, No palpitations, No syncope, No vascular heart diseas, No other Gastrointestinal: No RUQ, No LUQ, No RLQ, No LLQ, No no symptoms reported, No see HPI, No abdominal pain, No constipation, No diarrhea, No dysphagia, No hematemesis, No heartburn, No jaundice, No loss of appetite, No melena, No nausea, No vomiting, No other Genitourinary: No no symptoms reported, No see HPI, No decreased output, No discharge, No dysuria, No frequency, No hematuria, No hesitancy, No incontinence, No nocturia, No pain, No other Musculoskeletal: see HPI, joint swelling, neck pain Skin: No no symptoms reported, No see HPI, No change in color, No change in hair/nails, No dryness, No hx of skin cancer, No lesions, No lumps, No pruritus, No rash, No other All Other Systems Reviewed Negative Unless Noted: Yes Past Dhmqwcf-Ittehw-Nnhgub Hx Patient Social History Type Used: Cigarettes Former Smoker, Quit: Apr 23, 2019 2nd Hand Smoke Exposure: Yes Recent Hopitalizations: No Immunizations Up To Date Tetanus Booster (TDap): Unknown Date of Influenza Vaccine: Apr 09, 2019 Seasonal Allergies Seasonal Allergies: No Past Medical History Surgeries: Yes Gallbladder, Hysterectomy, Tubal Ligation Respiratory: Yes (home O2; possible pulmonary HTN- sees DR GARCIA) Pneumonia, COPD Currently Using CPAP: Yes (HAS DOESN'T WEAR) Cardiac: Yes High Cholesterol, Hypertension Neurological: Yes Stroke Genitourinary: No Gastrointestinal: Yes Gastroesophageal Reflux Musculoskeletal: No Endocrine: Yes Diabetes, Insulin dep HEENT: No Cancer: No Psychosocial: No Integumentary: No Blood Disorders: No Adverse Reaction/Blood Tranf: No Physical Exam Vital Signs Vital Signs - First Documented 03/03/20 13:32 Temp 36.4 Pulse 64 Resp 16 B/P (MAP) 126/72 (90) Pulse Ox 97 O2 Delivery Nasal Cannula O2 Flow Rate 6.00 Capillary Refill : Height, Weight, BMI Height: '" Weight: lbs. oz. kg; 43.42 BMI Method: General Appearance: WD/WN, no apparent distress Neck: non-tender, full range of motion, supple, normal inspection Cardiovascular: normal peripheral pulses, regular rate, rhythm, no edema, no ga llop, no JVD, no murmur Respiratory: chest non-tender, lungs clear, normal breath sounds, no respiratory distress, no accessory muscle use Gastrointestinal: normal bowel sounds, non tender, soft, no organomegaly, no pulsatile mass Back: normal inspection, no CVA tenderness, no vertebral tenderness Extremities: normal range of motion, non-tender, normal inspection, no pedal edema, no calf tenderness, normal capillary refill, pelvis stable Skin: normal color, warm/dry Progress/Results/Core Measures Results/Orders My Orders Orders - EUNICE MATA MD Elbow 2 View Right (03/03/20 13:40) Hip (Single View) Right (03/03/20 13:40) Orthostatic Vital Signs (Adult (03/03/20 13:40) Cervical Spine 3 View Or Less (03/03/20 13:40) Ekg Tracing (03/03/20 13:41) Vital Signs/I&O 03/03/20 03/03/20 13:32 13:52 Temp 36.4 Pulse 64 64 61 75 Resp 16 B/P (MAP) 126/72 (90) 173/68 (103) 162/80 (107) 156/77 (103) Pulse Ox 97 O2 Delivery Nasal Cannula O2 Flow Rate 6.00 Progress Progress Note : Time: 14:24 Progress Note Negative evaluation in the emergency department. I did discuss at length with patient about further medical screening exam the patient again declines. Patient is encouraged to make sure she wears her oxygen as prescribed by her PCP and she tried to stop smoking. Patient states understanding. Initial ECG Impression Date: Mar 03, 2020 Initial ECG Impression Time: 13:40 Initial ECG Rate: 62 Initial ECG Rhythm: Normal Sinus Initial ECG Intervals: Normal Initial ECG Impression: Normal Comment Normal sinus rhythm heart rate 62 Departure Impression Primary Impression: Fall Disposition: 01 HOME, SELF-CARE Condition: Stable Departure-Patient Inst. Decision time for Depature: 14:25 Referrals: JEAN ADHIKARI (PCP) Primary Care Physician MARY GOSS MD (Family) Primary Care Physician Patient Instructions: Preventing Falls in the Older Adult Add. Discharge Instructions: Continue all home medications. Make sure you wear oxygen as prescribed. If able use cane to help assist walking to help avoid falls. Try to avoid smoking. Follow-up with PCP in 2-3 days. EUNICE MATA MD Mar 03, 2020 13:44
[2020-03-03 13:52] VITALS: BP_SYST 156; BP_SYST 162; BP_SYST 173; BP_DIAS 68; BP_DIAS 77; BP_DIAS 80
--- NOTE | 2020-03-03 14:16 | Diagnostic Imaging Report ---
INDICATION: Fall. COMPARISON: None. FINDINGS: Three views of the right elbow show no fractures, dislocations, or other acute bony abnormalities identified. Joint spaces are well maintained throughout. The soft tissues appear unremarkable. No radiopaque foreign bodies are identified. IMPRESSION: No acute fractures or dislocations of the right elbow. Dictated by: Dictated on workstation # [id number]
--- NOTE | 2020-03-03 14:17 | Diagnostic Imaging Report ---
INDICATION: Fall. Pain. COMPARISON: None. FINDINGS: Single frontal radiographic view of the right hip was obtained. Osseous structures are intact. Joint spaces are maintained on this single frontal view. No lytic or blastic lesions are seen. No unexpected radiopaque foreign bodies are identified. IMPRESSION: 1. Unremarkable single frontal radiographic view of the right hip. Dictated by: Dictated on workstation # [id number]
--- NOTE | 2020-03-03 14:19 | Diagnostic Imaging Report ---
INDICATION: Fall. COMPARISON: None. FINDINGS: Frontal, lateral, swimmer's, and open-mouth views of the cervical spine were obtained. Cervical spine is seen down of the C6-C7 intervertebral disc space on the lateral view. C7-T1 junction is heavily obscured on the swimmer's view secondary to overlying osseous structures. Static alignment of the cervical spine is maintained. There is no significant anteroretrolisthesis. There is no evidence of jumped facets. Open-mouth view shows normal C1-C2 alignment. Visualized vertebral body heights are maintained. There is no acute fracture. Intervertebral disc heights are fairly well-maintained. Surrounding osseous structures show no acute abnormalities. Note is made of calcified carotid atherosclerosis. Included portions of lung apices are clear. IMPRESSION: 1. Unremarkable radiographic exam of the cervical spine as described above. Dictated by: Dictated on workstation # [id number]
--- NOTE | 2020-03-03 14:31 | NUR ---
Pt discharged and wheelchair used to take pt to checkout.
[2020-03-03 14:32] VITALS: BP 156/77
== END 2020-03-03 14:32 | disposition home or self-care (01) ==
LOC: EDUNIT# 13:31 → ER FS 13:32
DX: M54.2 Cervicalgia (principal); M25.551 Pain in right hip; M25.521 Pain in right elbow; I10 Essential (primary) hypertension; E78.00 Pure hypercholesterolemia, unspecified; E11.9 Type 2 diabetes mellitus without complications; J44.9 Chronic obstructive pulmonary disease, unspecified; K21.9 Gastro-esophageal reflux disease without esophagitis; Z88.8 Allergy status to other drugs, medicaments and biological substances; Z99.89 Dependence on other enabling machines and devices; Z86.73 Personal history of transient ischemic attack (TIA), and cerebral infarction without residual deficits; F17.210 Nicotine dependence, cigarettes, uncomplicated; W19.XXXA Unspecified fall, initial encounter; Y92.009 Unspecified place in unspecified non-institutional (private) residence as the place of occurrence of the external cause
CPT/HCPCS: 72040; 73070; 73501; 93005

== ENCOUNTER 2020-08-28 11:37 | Emergency (ER) | payer OTHER ==
[~2020-08-28] VITALS: Ht 172 cm; Wt 144.0 kg
[~2020-08-28 11:37] MED LIST changes: +ASPI-1238 PO; -ASPI-983 PO; -PANT40TA3 PO; +PANT40TA52 PO
--- NOTE | 2020-08-28 12:12 | ED Respiratory ---
General Chief Complaint: Respiratory Problems Stated Complaint: SOB, WEAKNESS, CP Nursing Triage Note: ARRIVED VIA WC TO ROOM 10 WITH INCREASED SOA DESPITE OXYGEN AT 8L. PT STATES SHE IS ALWAYS ON 8L. STATES WHEN SHE IS WALKING HER PULSE OX DROPS. Source: patient, old records Exam Limitations: no limitations History of Present Illness Date Seen by Provider: Aug 28, 2020 Time Seen by Provider: 12:00 Initial Comments Patient is a 55-year-old female who presents to the emergency department today with a chief complaint of increasing shortness of breath over the last couple of days. Patient has a history of COPD. She is chronically on oxygen therapy at home. Patient states at rest she is supposed to be on 4 L and when she exerts herself she is supposed to be on 8 L. Patient states that it is just easier for her to leave her oxygen on 8 L all the time as opposed to changing it anytime she wants to move around. Patient states that as she has been up and walking in the last couple of days her oxygen saturations have dropped into the 60s. Patient states that normally with exertion she can drop into the 70s but she will rebound quite quickly back up to the mid 90s. Patient states that taking her longer than normal to rebound even into the mid 80s. Patient states that she is very fatigued. She endorses a little bit of chest discomfort with exertion. She states after a coughing spell last night she had some mid back pain. Patient states that her cough is generally nonproductive. She was tested for Covid 3 weeks ago and was negative. Patient denies any exposures. She denies any recent fevers, chills, congestion or sore throat. She has had a bilateral earache. Patient denies any problems with bowel or bladder although she does suffer off and on with diarrhea. Patient states that she has had an angiogram within the last year by Dr. Lanier. All other review of systems reviewed and negative except as stated above. Timing/Duration: yesterday Prior Episodes/Possible Cause: occasional episodes Allergies and Home Medications Allergies Coded Allergies: lisinopril (Verified Allergy, Unknown, 05/24/19) metformin (Verified Allergy, Unknown, 07/31/19) saxagliptin (Verified Allergy, Unknown, 07/31/19) simvastatin (Verified Allergy, Unknown, weakness, 05/24/19) Home Medications Acetaminophen 500 Mg Tablet, 1,000 MG PO BID PRN for PAIN-MILD (1-4), (Reported) Albuterol Sulfate 2.5 Mg/0.5 Ml Vial.neb, 2.5 MG INH Q6H PRN for SHORTNESS OF BREATH, (Reported) Albuterol Sulfate 1 Puff Puff, 2 PUFF IH Q6H PRN for SHORTNESS OF BREATH, (Reported) Aspirin 81 Mg Tablet.dr, 81 MG PO HS, (Reported) Atorvastatin Calcium 80 Mg Tablet, 80 MG PO HS, (Reported) Betamethasone/Propylene Glyc 15 Gm Cream..g., 1 APPLIC TP PRN PRN for RASH, (Reported) Budesonide/Formoterol Fumarate 10.2 Gm Hfa.aer.ad, 2 PUFF IH BID, (Reported) Cetirizine HCl 10 Mg Tab.chew, 10 MG PO DAILY, (Reported) Clopidogrel Bisulfate 75 Mg Tablet, 75 MG PO HS, (Reported) Diclofenac Sodium 100 Gm Gel..gram., 4 GM TP BID PRN, (Reported) Duloxetine HCl 60 Mg Capsule.dr, 60 MG PO DAILY, (Reported) Empagliflozin 25 Mg Tablet, 12.5 MG PO DAILY, (Reported) TAKES OF A 25MG TO EQUAL 12.5MG Fluticasone Propionate 9.9 Ml [place].susp, 2 SPRAY NS DAILY PRN for CONGESTION, (Reported) 2 SPRAYS PER NOSTRIL DAILY X 2 DAYS THEN 1 SPRAY DAILY Insulin Aspart 100 Unit/1 Ml Susp, 50 UNIT SQ TIDAC, (Reported) Insulin Glargine,Hum.rec.anlog 100 Unit/1 Ml Vial, 110 UNIT SQ HS, (Reported) Lidocaine HCl 35 Gm Oint, 1 APPLIC TP PRN PRN for PAIN-BREAKTHROUGH, (Reported) Losartan Potassium 50 Mg Tablet, 25 MG PO DAILY, (Reported) TAKES OF A 50MG TO EQUAL 25MG Multivits-Min/Iron/FA/Lutein 1 Each Tablet, 1 EACH PO DAILY, (Reported) Pantoprazole Sodium 40 Mg Tablet.dr, 40 MG PO DAILY, (Reported) Pregabalin 150 Mg Capsule, 150 MG PO BID, (Reported) Ropinirole HCl 1 Mg Tablet, 1 MG PO BID, (Reported) Semaglutide 0.25 Mg/0.2 Ml Pen.injctr, 0.5 MG SQ WEEK, (Reported) Patient Home Medication List Home Medication List Reviewed: Yes Review of Systems Review of Systems Constitutional: see HPI EENTM: ear pain Respiratory: cough, dyspnea on exertion, short of breath Cardiovascular: chest pain Gastrointestinal: no symptoms reported Genitourinary: no symptoms reported : No Musculoskeletal: no symptoms reported Skin: no symptoms reported Psychiatric/Neurological: No Symptoms Reported All Other Systems Reviewed Negative Unless Noted: Yes Past Khdpaxu-Srrfti-Maxtay Hx Patient Social History Type Used: Cigarettes Former Smoker, Quit: Apr 23, 2019 2nd Hand Smoke Exposure: Yes Recent Infectious Disease Expo: No Recent Hopitalizations: No Immunizations Up To Date Tetanus Booster (TDap): Unknown Date of Influenza Vaccine: Apr 09, 2019 Seasonal Allergies Seasonal Allergies: No Past Medical History Surgeries: Yes (KISSING STENTS IN LEGS) Gallbladder, Hysterectomy, Tubal Ligation Respiratory: Yes (home O2; possible pulmonary HTN- sees DR GARCIA) Pneumonia, COPD Currently Using CPAP: Yes Cardiac: Yes High Cholesterol, Hypertension Neurological: Yes Stroke Genitourinary: No Gastrointestinal: Yes Gastroesophageal Reflux Musculoskeletal: No Endocrine: Yes Diabetes, Insulin dep HEENT: No Cancer: No Psychosocial: No Integumentary: No Blood Disorders: No Adverse Reaction/Blood Tranf: No Physical Exam Vital Signs - First Documented 08/28/20 11:40 Temp 36.0 Pulse 84 Resp 16 B/P (MAP) 130/69 (89) Pulse Ox 93 O2 Delivery Nasal Cannula O2 Flow Rate 8.00 Capillary Refill : Less Than 3 Seconds Height: '" Weight: lbs. oz. kg; 48.00 BMI Method: General Appearance: WD/WN, no apparent distress Eyes: Bilateral Eye Normal Inspection, Bilateral Eye PERRL, Bilateral Eye EOMI HEENT: PERRL/EOMI Neck: full range of motion Respiratory: lungs clear, normal breath sounds, no respiratory distress, no accessory muscle use Cardiovascular: regular rate, rhythm Gastrointestinal: non tender Extremities: normal range of motion, non-tender, normal inspection, no pedal edema, no calf tenderness, normal capillary refill Neurologic/Psychiatric: no motor/sensory deficits, alert, normal mood/affect, oriented x 3 Skin: normal color, warm/dry Progress/Results/Core Measures Suspected Sepsis Recent Fever Within 48 Hours: No Infection Criteria Present: Suspected New Infection New/Unexplained Altered Menta: No Sepsis Screen: No Definite Risk SIRS Temperature: Pulse: 84 Respiratory Rate: 16 Laboratory Tests 08/28/20 11:51: White Blood Count 5.4 Blood Pressure 130 /69 Mean: 89 Laboratory Tests 08/28/20 11:51: Creatinine 0.95, Platelet Count 164 Results/Orders Lab Results Laboratory Tests Test 08/28/20 11:51 Range/Units White Blood Count 5.4 4.3-11.0 10^3/uL Red Blood Count 4.16 3.80-5.11 10^6/uL Hemoglobin 12.1 11.5-16.0 g/dL Hematocrit 37 35-52 % Mean Corpuscular Volume 90 80-99 fL Mean Corpuscular Hemoglobin 29 25-34 pg Mean Corpuscular Hemoglobin Concent 32 32-36 g/dL Red Cell Distribution Width 14.8 H 10.0-14.5 % Platelet Count 164 130-400 10^3/uL Mean Platelet Volume 11.5 9.0-12.2 fL Immature Granulocyte % (Auto) 0 % Neutrophils (%) (Auto) 69 42-75 % Lymphocytes (%) (Auto) 23 12-44 % Monocytes (%) (Auto) 6 0-12 % Eosinophils (%) (Auto) 2 0-10 % Basophils (%) (Auto) 0 0-10 % Neutrophils # (Auto) 3.7 1.8-7.8 10^3/uL Lymphocytes # (Auto) 1.2 1.0-4.0 10^3/uL Monocytes # (Auto) 0.3 0.0-1.0 10^3/uL Eosinophils # (Auto) 0.1 0.0-0.3 10^3/uL Basophils # (Auto) 0.0 0.0-0.1 10^3/uL Immature Granulocyte # (Auto) 0.0 0.0-0.1 10^3/uL Sodium Level 142 135-145 MMOL/L Potassium Level 3.0 L 3.6-5.0 MMOL/L Chloride Level 99 98-107 MMOL/L Carbon Dioxide Level 27 21-32 MMOL/L Anion Gap 16 H 5-14 MMOL/L Blood Urea Nitrogen 19 H 7-18 MG/DL Creatinine 0.95 0.60-1.30 MG/DL Estimat Glomerular Filtration Rate > 60 BUN/Creatinine Ratio 20 Glucose Level 234 H 70-105 MG/DL Calcium Level 7.9 L 8.5-10.1 MG/DL Total Creatine Kinase 42 29-168 U/L Creatine Kinase MB 0.8 <6.6 NG/ML Troponin I < 0.028 <0.028 NG/ML B-Type Natriuretic Peptide 133.8 H <100.0 PG/ML Coronavirus 2019 (PAM) Negative Negative My Orders Orders - BARNEY VIDAL MD Covid 19 Inhouse Test (08/28/20 12:13) Chest 1 View, Ap/Pa Only (08/28/20 12:13) Ekg Tracing (08/28/20 12:13) Cbc With Automated Diff (08/28/20 12:13) Basic Metabolic Panel (08/28/20 12:13) BNP (08/28/20 12:13) Troponin I (08/28/20 12:13) Creatine Kinase Mb (08/28/20 12:13) Creatine Kinase (08/28/20 12:13) Vital Signs/I&O 08/28/20 11:40 Temp 36.0 Pulse 84 Resp 16 B/P (MAP) 130/69 (89) Pulse Ox 93 O2 Delivery Nasal Cannula O2 Flow Rate 8.00 Capillary Refill : Less Than 3 Seconds Blood Pressure Mean: 89 Progress Note : Time: 12:15 Progress Note Patient is a 55-year-old female who presents to the emergency department with a chief complaint of shortness of breath, fatigue and mild chest discomfort. Evaluation today includes a physical exam, CBC, Chem-7, cardiac enzyme profile, chest x-ray, BNP and EKG. Patient states that she normally wears her oxygen 8 L/min at home all the time. She states she has been dropping quite significantly with any amount of exertion. In the emergency department today the patient has settled nicely on 6 L per nasal cannula at a pulse ox of around 95%. Patient states that that is a good oxygen saturation for her. At 4 L/min here in the emergency department the patient states that 90 to 91%. 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 Patient states that she has not had any increased cough or fever that she is aware of. Will obtain this chest x-ray in order to evaluate for aspiration pneumonia. Also a Covid test is been obtained as the patient could have been exposed unknowingly. Disposition to be determined after laboratory studies and imaging have been evaluated. 1328 Patient reevaluated after laboratory studies and imaging were performed. Patient's labs are all within normal limits except for her BNP which is very minimally elevated at 133, the upper limit of normal being 100. Patient's cardiac enzymes are negative. Patient's chest x-ray looks good although the radiology interpretation is concerning for bilateral mild interstitial infiltrates concerning for infectious etiology. As the patient is not febrile nor has any increased cough nor productive cough we will treat her with steroids for the next 3 to 5 days. I am not going to prescribe any antibiotics at this time. Patient is advised of all of her findings. We have discussed the plan of care and she is agreeable. Her daughter is in respiratory therapy school and will keep a close eye on her. All questions are sought and answered from the patient. She is agreeable for discharge. Patient is stable for discharge. O xygen saturations on her 6 L per nasal cannula are 95% at the time of discharge ECG Initial ECG Impression Date: Aug 28, 2020 Initial ECG Impression Time: 12:04 Initial ECG Rate: 80 Initial ECG Rhythm: Normal Sinus Initial ECG Intervals: Normal Initial ECG Impression: Nonspecific Changes Diagnostic Imaging Diagonstic Imaging: Xray Plain Films/CT/US/NM/MRI: chest Comments [facility], [place] NAME: SILVIO BAIRD [facility] REC#: [id number] PT STATUS: REG ER : 1965 PHYSICIAN: BARNEY VIDAL MD ADMIT DATE: 08/28/20/ER Draft Date of Exam:08/28/20 CHEST 1 VIEW, AP/PA ONLY EXAMINATION: Chest radiograph, portable AP view. DATE: 08/28/2020 12:57 PM INDICATION: 55-year-old female, shortness of breath, chest pain. COMPARISON: July 31, 2019. FINDINGS: Stable overall appearance of the cardiomediastinal silhouette. The heart is borderline enlarged. There is no identified pneumothorax. There is no large pleural effusion. There are mildly prominent pulmonary vascular markings. Overall imaging appearance is similar to the comparison study. There are technical limitations of the study given patient body habitus and difficulties with exposure. IMPRESSION: 1. Borderline cardiomegaly with bilateral predominantly interstitial appearing opacities most likely reflecting pulmonary interstitial edema. Atypical infection would be the primary differential diagnostic consideration. Imaging appearance is similar to July 31, 2019. Dictated on workstation # [id number] Dict: 08/28/20 1258 Trans: 08/28/20 1321 [facility] [id number] Interpreted by: SIMON PRINCE MD Electronically signed by: Departure Impression Primary Impression: Respiratory illness Disposition: 01 HOME, SELF-CARE Condition: Stable Departure-Patient Inst. Decision time for Depature: 13:31 Referrals: NO,LOCAL PHYSICIAN (PCP) Primary Care Physician JEAN ADHIKARI-ANALYSIS INTERN (Family) Primary Care Physician Patient Instructions: Viral Upper Respiratory Infection, Adult (DC) Add. Discharge Instructions: Drink plenty of fluids to stay well-hydrated. Continue your home daily medications as previously prescribed. I have given you a prescription for prednisone take this once a day with food for the next 5 days. Continue breathing treatments as scheduled. Return to the emergency room if you have any worsening shortness of breath, cough, fever or any other emergent concerning symptoms. Follow-up with your primary care physician. Scripts Prednisone (Prednisone) 20 Mg Tab 40 MG PO DAILY, #10 TAB 0 Refills Prov: BARNEY VIDAL MD 08/28/20 BARNEY VIDAL MD Aug 28, 2020 12:12
[2020-08-28 12:20] LABS: BASOPHILS % (AUTO) 0 % (0-10); EOSINOPHILS # (AUTO) 0.1 10^3/uL (0.0-0.3); EOSINOPHILS % (AUTO) 2 % (0-10); HEMATOCRIT 37 % (35-52); HEMOGLOBIN 12.1 g/dL (11.5-16.0); LYMPHOCYTES # (AUTO) 1.2 10^3/uL (1.0-4.0); LYMPHOCYTES % (AUTO) 23 % (12-44); MEAN CORPUSCULAR HEMOGLOBIN 29 pg (25-34); MEAN CORPUSCULAR HGB CONC 32 g/dL (32-36); MEAN CORPUSCULAR VOLUME 90 fL (80-99); MEAN PLATELET VOLUME 11.5 fL (9.0-12.2); MONOCYTES # (AUTO) 0.3 10^3/uL (0.0-1.0); MONOCYTES % (AUTO) 6 % (0-12); NEUTROPHILS # (AUTO) 3.7 10^3/uL (1.8-7.8); NEUTROPHILS % (AUTO) 69 % (42-75); PLATELET COUNT 164 10^3/uL (130-400); WHITE BLOOD COUNT 5.4 10^3/uL (4.3-11.0)
[2020-08-28 12:23] LABS: CHLORIDE 99 MMOL/L (98-107); SODIUM 142 MMOL/L (135-145)
[2020-08-28 12:24] LABS: CALCIUM 7.9 MG/DL (8.5-10.1); GLUCOSE 234 MG/DL (70-105)
[2020-08-28 12:26] LABS: CARBON DIOXIDE 27 MMOL/L (21-32)
[2020-08-28 12:28] LABS: CREATININE SERUM 0.95 MG/DL (0.60-1.30); GFR ESTIMATED > 60
[2020-08-28 12:29] LABS: BUN/CREATININE RATIO 20
[2020-08-28 12:31] LABS: CREATINE KINASE 42 U/L (29-168)
[2020-08-28 12:37] LABS: CREATINE KINASE MB 0.8 NG/ML (<6.6)
--- NOTE | 2020-08-28 13:22 | Diagnostic Imaging Report ---
EXAMINATION: Chest radiograph, portable AP view. DATE: 08/28/2020 12:57 PM INDICATION: 55-year-old female, shortness of breath, chest pain. COMPARISON: July 31, 2019. FINDINGS: Stable overall appearance of the cardiomediastinal silhouette. The heart is borderline enlarged. There is no identified pneumothorax. There is no large pleural effusion. There are mildly prominent pulmonary vascular markings. Overall imaging appearance is similar to the comparison study. There are technical limitations of the study given patient body habitus and difficulties with exposure. IMPRESSION: 1. Borderline cardiomegaly with bilateral predominantly interstitial appearing opacities most likely reflecting pulmonary interstitial edema. Atypical infection would be the primary differential diagnostic consideration. Imaging appearance is similar to July 31, 2019. Dictated by: Dictated on workstation # [id number]
[2020-08-28] MEDS ORDERED: PRD20T PO (13:32)
[2020-08-28] MEDS ORDERED: methylPREDNISolone 125 MG (Solu-MEDROL) VIAL IVP ONE (13:45)
[2020-08-28 13:52] VITALS: BP 139/79
== END 2020-08-28 13:52 | disposition home or self-care (01) ==
LOC: EDUNIT# 11:37 → ER 11:39
DX: J98.9 Respiratory disorder, unspecified (principal); E78.00 Pure hypercholesterolemia, unspecified; K21.9 Gastro-esophageal reflux disease without esophagitis; I10 Essential (primary) hypertension; E11.9 Type 2 diabetes mellitus without complications; J44.9 Chronic obstructive pulmonary disease, unspecified; Z20.822 Contact with and (suspected) exposure to COVID-19; Z88.8 Allergy status to other drugs, medicaments and biological substances; Z86.73 Personal history of transient ischemic attack (TIA), and cerebral infarction without residual deficits; Z87.891 Personal history of nicotine dependence; Z79.82 Long term (current) use of aspirin; Z79.4 Long term (current) use of insulin
CPT/HCPCS: 36415; 71045; 80048; 82550; 82553; 83880; 84484; 85025; 87635

== ENCOUNTER 2020-10-06 14:51 | Emergency (ER) | payer OTHER ==
[~2020-10-06] VITALS: Ht 175.2 cm; Wt 144.0 kg
--- NOTE | 2020-10-06 15:16 | ED Abdominal Pain ---
General Chief Complaint: General Problems/Pain Stated Complaint: MALAISE History of Present Illness Date Seen by Provider: Oct 06, 2020 Time Seen by Provider: 15:10 Initial Comments 55-year-old female presents with complaint of diarrhea for the past 1 week. She got COVID-19 vaccination 1 week ago and since then has been having loose stools up to 10 times daily. She had a Zoom telemedicine meeting today and was told she did not look good and advised to come to the ER. Patient denies any fever or chills, denies cough or shortness of air. Denies chest pain or swelling of extremities. She has history of COPD and is on home oxygen 8 L per nasal cannula 24 hours a day. Allergies and Home Medications Allergies Coded Allergies: lisinopril (Verified Allergy, Unknown, 05/24/19) metformin (Verified Allergy, Unknown, 07/31/19) saxagliptin (Verified Allergy, Unknown, 07/31/19) simvastatin (Verified Allergy, Unknown, weakness, 05/24/19) Home Medications Acetaminophen 500 Mg Tablet, 1,000 MG PO BID PRN for PAIN-MILD (1-4), (Reported) Albuterol Sulfate 2.5 Mg/0.5 Ml Vial.neb, 2.5 MG INH Q6H PRN for SHORTNESS OF BREATH, (Reported) Albuterol Sulfate 1 Puff Puff, 2 PUFF IH Q6H PRN for SHORTNESS OF BREATH, (Reported) Aspirin 81 Mg Tablet.dr, 81 MG PO HS, (Reported) Atorvastatin Calcium 80 Mg Tablet, 80 MG PO HS, (Reported) Betamethasone/Propylene Glyc 15 Gm Cream..g., 1 APPLIC TP PRN PRN for RASH, (Reported) Budesonide/Formoterol Fumarate 10.2 Gm Hfa.aer.ad, 2 PUFF IH BID, (Reported) Cetirizine HCl 10 Mg Tab.chew, 10 MG PO DAILY, (Reported) Clopidogrel Bisulfate 75 Mg Tablet, 75 MG PO HS, (Reported) Diclofenac Sodium 100 Gm Gel..gram., 4 GM TP BID PRN, (Reported) Duloxetine HCl 60 Mg Capsule.dr, 60 MG PO DAILY, (Reported) Empagliflozin 25 Mg Tablet, 12.5 MG PO DAILY, (Reported) TAKES OF A 25MG TO EQUAL 12.5MG Fluticasone Propionate 9.9 Ml [place].susp, 2 SPRAY NS DAILY PRN for CONGESTION, (Reported) 2 SPRAYS PER NOSTRIL DAILY X 2 DAYS THEN 1 SPRAY DAILY Insulin Aspart 100 Unit/1 Ml Susp, 50 UNIT SQ TIDAC, (Reported) Insulin Glargine,Hum.rec.anlog 100 Unit/1 Ml Vial, 110 UNIT SQ HS, (Reported) Lidocaine HCl 35 Gm Oint, 1 APPLIC TP PRN PRN for PAIN-BREAKTHROUGH, (Reported) Loperamide HCl 2 Mg Tablet, 2 MG PO BID PRN Prescribed by: KISHOR STAHL on 10/06/20 1636 Losartan Potassium 50 Mg Tablet, 25 MG PO DAILY, (Reported) TAKES OF A 50MG TO EQUAL 25MG Multivits-Min/Iron/FA/Lutein 1 Each Tablet, 1 EACH PO DAILY, (Reported) Pantoprazole Sodium 40 Mg Tablet.dr, 40 MG PO DAILY, (Reported) Prednisone 20 Mg Tab, 40 MG PO DAILY Prescribed by: BARNEY VIDAL on 08/28/20 1332 Pregabalin 150 Mg Capsule, 150 MG PO BID, (Reported) Ropinirole HCl 1 Mg Tablet, 1 MG PO BID, (Reported) Semaglutide 0.25 Mg/0.2 Ml Pen.injctr, 0.5 MG SQ WEEK, (Reported) Patient Home Medication List Home Medication List Reviewed: Yes Review of Systems Review of Systems Constitutional: No chills, No fever, No malaise, No weakness Respiratory: Denies Cough, Denies Shortness of Air Cardiovascular: Denies Chest Pain, Denies Edema, Denies Lightheadedness Gastrointestinal: See HPI, Abdominal Pain (intermittent sharp cramping- migrates); Denies Constipated; Diarrhea; Denies Nausea, Denies Poor Appetite, Denies Vomiting Skin: No change in color, No rash Past Tninzzt-Doglqy-Qhkadg Hx Past Med/Social Hx: Reviewed Nursing Past Med/Soc Hx Patient Social History Alcohol Use: Denies Use Smoking Status: Former Smoker Type Used: Cigarettes Former Smoker, Quit: Apr 23, 2019 2nd Hand Smoke Exposure: Yes Recent Hopitalizations: No Immunizations Up To Date Tetanus Booster (TDap): Unknown Date of Influenza Vaccine: Apr 09, 2019 Seasonal Allergies Seasonal Allergies: No Past Medical History Surgeries: Yes (KISSING STENTS IN LEGS) Gallbladder, Hysterectomy, Tubal Ligation Respiratory: Yes (home O2; possible pulmonary HTN- sees DR GARCIA) Pneumonia, COPD Currently Using CPAP: Yes Cardiac: Yes High Cholesterol, Hypertension Neurological: Yes Stroke Genitourinary: No Gastrointestinal: Yes Gastroesophageal Reflux Musculoskeletal: No Endocrine: Yes Diabetes, Insulin dep HEENT: No Cancer: No Psychosocial: No Integumentary: No Blood Disorders: No Adverse Reaction/Blood Tranf: No Physical Exam Vital Signs Vital Signs - First Documented 10/06/20 15:09 Temp 35.9 Pulse 98 Resp 16 B/P (MAP) 153/74 (100) Pulse Ox 97 O2 Delivery Nasal Cannula O2 Flow Rate 8.00 Capillary Refill : Height/Weight/BMI Height: '" Weight: lbs. oz. kg; 48.00 BMI Method: General Appearance: WD/WN, no apparent distress Neck: non-tender, supple Respiratory: chest non-tender, lungs clear, normal breath sounds Cardiovascular: regular rate, rhythm, no edema, no gallop, no JVD Gastrointestinal: normal bowel sounds, non tender, soft, no organomegaly, no pulsatile mass Extremities: non-tender, no pedal edema, no calf tenderness Back: normal inspection, no CVA tenderness Neurologic/Psychiatric: no motor/sensory deficits, alert, normal mood/affect, oriented x 3 Skin: normal color, warm/dry Progress/Results/Core Measures Results/Orders Lab Results Laboratory Tests Test 10/06/20 15:45 Range/Units White Blood Count 5.1 4.3-11.0 10^3/uL Red Blood Count 4.02 L 4.35-5.85 10^6/uL Hemoglobin 11.4 L 11.5-16.0 G/DL Hematocrit 36 35-52 % Mean Corpuscular Volume 89 80-99 FL Mean Corpuscular Hemoglobin 28 25-34 PG Mean Corpuscular Hemoglobin Concent 32 32-36 G/DL Red Cell Distribution Width 15.9 H 10.0-14.5 % Platelet Count 143 130-400 10^3/uL Mean Platelet Volume 11.1 H 7.4-10.4 FL Neutrophils (%) (Auto) 62 42-75 % Lymphocytes (%) (Auto) 27 12-44 % Monocytes (%) (Auto) 9 0-12 % Eosinophils (%) (Auto) 1 0-10 % Basophils (%) (Auto) 0 0-10 % Neutrophils # (Auto) 3.2 1.8-7.8 X 10^3 Lymphocytes # (Auto) 1.4 1.0-4.0 X 10^3 Monocytes # (Auto) 0.5 0.0-1.0 X 10^3 Eosinophils # (Auto) 0.1 0.0-0.3 10^3/uL Basophils # (Auto) 0.0 0.0-0.1 10^3/uL Sodium Level 142 135-145 MMOL/L Potassium Level 3.4 L 3.6-5.0 MMOL/L Chloride Level 99 98-107 MMOL/L Carbon Dioxide Level 32 21-32 MMOL/L Anion Gap 11 5-14 MMOL/L Blood Urea Nitrogen 12 7-18 MG/DL Creatinine 0.94 0.60-1.30 MG/DL Estimat Glomerular Filtration Rate > 60 BUN/Creatinine Ratio 13 Glucose Level 127 H 70-105 MG/DL Calcium Level 8.2 L 8.5-10.1 MG/DL Corrected Calcium 8.6 8.5-10.1 MG/DL Total Bilirubin 0.7 0.1-1.0 MG/DL Aspartate Amino Transf (AST/SGOT) 21 5-34 U/L Alanine Aminotransferase (ALT/SGPT) 15 0-55 U/L Alkaline Phosphatase 116 40-136 U/L Total Protein 6.5 6.4-8.2 GM/DL Albumin 3.5 3.2-4.5 GM/DL My Orders Orders - KISHOR STAHL DO Cbc With Automated Diff (10/06/20 15:12) Comprehensive Metabolic Panel (10/06/20 15:12) Ed Iv/Invasive Line Start (10/06/20 15:12) Vital Signs/I&O 10/06/20 15:09 Temp 35.9 Pulse 98 Resp 16 B/P (MAP) 153/74 (100) Pulse Ox 97 O2 Delivery Nasal Cannula O2 Flow Rate 8.00 Progress Progress Note : Progress Note Uneventful ER stay, vital signs stable, labs without any significant abnormality. Patient tolerating p.o. and no episodes of diarrhea. Discharge instructions and advised to use Imodium as needed and follow-up with your PCP in 1 week if not improving. Patient agrees and understands Departure Impression Primary Impression: Diarrhea after vaccination Disposition: 01 HOME, SELF-CARE Condition: Stable Departure-Patient Inst. Decision time for Depature: 16:35 Referrals: NO,LOCAL PHYSICIAN (PCP) Primary Care Physician JEAN ADHIKARI-TRUCK ASSEMBLER (Family) Primary Care Physician Patient Instructions: Diarrhea, Adult ED Add. Discharge Instructions: follow up with your PCP in 1 week if not improving. Take Imodium as directed for continued loose stool All discharge instructions reviewed with patient and/or family. Voiced understanding. Scripts Loperamide HCl (Imodium A-D) 2 Mg Tablet 2 MG PO BID PRN for Diarrhea, #14 TAB Prov: KISHOR STAHL DO 10/06/20 KISHOR STAHL DO Oct 06, 2020 15:16
[2020-10-06 16:04] LABS: BASOPHILS % (AUTO) 0 % (0-10); EOSINOPHILS % (AUTO) 1 % (0-10); HEMATOCRIT 36 % (35-52); HEMOGLOBIN 11.4 G/DL (11.5-16.0); LYMPHOCYTES % (AUTO) 27 % (12-44); MEAN CORPUSCULAR HEMOGLOBIN 28 PG (25-34); MEAN CORPUSCULAR HGB CONC 32 G/DL (32-36); MEAN CORPUSCULAR VOLUME 89 FL (80-99); MEAN PLATELET VOLUME 11.1 FL (7.4-10.4); MONOCYTES % (AUTO) 9 % (0-12); NEUTROPHILS % (AUTO) 62 % (42-75); PLATELET COUNT 143 10^3/uL (130-400); WHITE BLOOD COUNT 5.1 10^3/uL (4.3-11.0)
[2020-10-06 16:05] LABS: EOSINOPHILS # (AUTO) 0.1 10^3/uL (0.0-0.3); LYMPHOCYTES # (AUTO) 1.4 X 10^3 (1.0-4.0); MONOCYTES # (AUTO) 0.5 X 10^3 (0.0-1.0); NEUTROPHILS # (AUTO) 3.2 X 10^3 (1.8-7.8)
[2020-10-06 16:18] LABS: CARBON DIOXIDE 32 MMOL/L (21-32); CHLORIDE 99 MMOL/L (98-107); POTASSIUM 3.4 MMOL/L (3.6-5.0); SODIUM 142 MMOL/L (135-145)
[2020-10-06 16:19] LABS: ALANINE AMINOTRANSFERASE 15 U/L (0-55); ALBUMIN 3.5 GM/DL (3.2-4.5); ALKALINE PHOSPHATASE 116 U/L (40-136); BILIRUBIN,TOTAL 0.7 MG/DL (0.1-1.0); BUN/CREATININE RATIO 13; CALCIUM 8.2 MG/DL (8.5-10.1); CREATININE SERUM 0.94 MG/DL (0.60-1.30); GFR ESTIMATED > 60; GLUCOSE 127 MG/DL (70-105); TOTAL PROTEIN 6.5 GM/DL (6.4-8.2)
[2020-10-06] MEDS ORDERED: LOPE-134 PO (16:36)
[2020-10-06 16:50] VITALS: BP 153/74
== END 2020-10-06 16:50 | disposition home or self-care (01) ==
LOC: EDUNIT# 14:51 → ER FS 14:53
DX: K52.1 Toxic gastroenteritis and colitis (principal); T50.B95A Adverse effect of other viral vaccines, initial encounter; I10 Essential (primary) hypertension; E11.9 Type 2 diabetes mellitus without complications; E78.00 Pure hypercholesterolemia, unspecified; K21.9 Gastro-esophageal reflux disease without esophagitis; J44.9 Chronic obstructive pulmonary disease, unspecified; Z87.891 Personal history of nicotine dependence; Z87.01 Personal history of pneumonia (recurrent); Z79.4 Long term (current) use of insulin; Z99.81 Dependence on supplemental oxygen; Z79.82 Long term (current) use of aspirin; Z79.02 Long term (current) use of antithrombotics/antiplatelets; Z79.51 Long term (current) use of inhaled steroids; Z79.52 Long term (current) use of systemic steroids; Z88.8 Allergy status to other drugs, medicaments and biological substances
CPT/HCPCS: 36415; 80053; 85025

== ENCOUNTER 2021-01-04 15:50 | Inpatient (IN) | payer OTHER ==
[~2021-01-04] VITALS: Ht 175.3 cm; Wt 143.0 kg
[~2021-01-04 15:50] MED LIST changes: +DICL100G13 TP; -DICL100G31 TP; +LOPE-134 PO
--- NOTE | 2021-01-04 16:15 | ED General ---
General Chief Complaint: General Problems/Pain Stated Complaint: DIZZINESS | FALL Source of Information: Patient, EMS History of Present Illness Date Seen by Provider: Jan 04, 2021 Time Seen by Provider: 15:57 Initial Comments 55 yo female presenting by EMS after having a fall today and Monday. She feels dizzy and weak especially when she had a fall. She has increased pain in her low back and right hip since the fall. She also feels that her feet are hurting more than her usual neuropathy. She has tightness in her abdomen since the fall on Monday. She has been urinating and defecating normally. She denies any nausea or vomiting, fever, chills, increased cough, pain with urination. She does have dizziness and generalized weakness that is increased over the last few days. She did not seek medical care on Monday because she felt like things were at her baseline but today her daughter made her come in to be evaluated after the second fall in a few days. Location Injury Occurred: home Timing/Duration: 3-4 Days Associated Systoms: No Chest Pain, No Cough, No Diaphoresis, No Fever/Chills, No Headaches, No Loss of Appetite, No Malaise, No Nausea/Vomiting, No Rash, No Seizure; Shortness of Air (chronic but a little worse than usual); No Syncope; Weakness Allergies and Home Medications Allergies Coded Allergies: lisinopril (Verified Allergy, Unknown, 05/24/19) metformin (Verified Allergy, Unknown, 07/31/19) saxagliptin (Verified Allergy, Unknown, 07/31/19) simvastatin (Verified Allergy, Unknown, weakness, 05/24/19) Home Medications Acetaminophen 500 Mg Tablet, 1,000 MG PO BID PRN for PAIN-MILD (1-4), (Reported) Albuterol Sulfate 2.5 Mg/0.5 Ml Vial.neb, 2.5 MG INH Q6H PRN for SHORTNESS OF BREATH, (Reported) Albuterol Sulfate 1 Puff Puff, 2 PUFF IH Q6H PRN for SHORTNESS OF BREATH, (Reported) Aspirin 81 Mg Tablet.dr, 81 MG PO HS, (Reported) Atorvastatin Calcium 80 Mg Tablet, 80 MG PO HS, (Reported) Betamethasone/Propylene Glyc 15 Gm Cream..g., 1 APPLIC TP PRN PRN for RASH, (Reported) Budesonide/Formoterol Fumarate 10.2 Gm Hfa.aer.ad, 2 PUFF IH BID, (Reported) Cetirizine HCl 10 Mg Tab.chew, 10 MG PO DAILY, (Reported) Clopidogrel Bisulfate 75 Mg Tablet, 75 MG PO HS, (Reported) Diclofenac Sodium 100 Gm Gel..gram., 4 GM TP BID PRN, (Reported) Duloxetine HCl 60 Mg Capsule.dr, 60 MG PO DAILY, (Reported) Empagliflozin 25 Mg Tablet, 12.5 MG PO DAILY, (Reported) TAKES OF A 25MG TO EQUAL 12.5MG Fluticasone Propionate 9.9 Ml [place].susp, 2 SPRAY NS DAILY PRN for CONGESTION, (Reported) 2 SPRAYS PER NOSTRIL DAILY X 2 DAYS THEN 1 SPRAY DAILY Insulin Aspart 100 Unit/1 Ml Susp, 50 UNIT SQ TIDAC, (Reported) Insulin Glargine,Hum.rec.anlog 100 Unit/1 Ml Vial, 110 UNIT SQ HS, (Reported) Lidocaine HCl 35 Gm Oint, 1 APPLIC TP PRN PRN for PAIN-BREAKTHROUGH, (Reported) Loperamide HCl 2 Mg Tablet, 2 MG PO BID PRN Prescribed by: KISHOR STAHL on 10/06/20 1636 Losartan Potassium 50 Mg Tablet, 25 MG PO DAILY, (Reported) TAKES OF A 50MG TO EQUAL 25MG Multivits-Min/Iron/FA/Lutein 1 Each Tablet, 1 EACH PO DAILY, (Reported) Pantoprazole Sodium 40 Mg Tablet.dr, 40 MG PO DAILY, (Reported) Prednisone 20 Mg Tab, 40 MG PO DAILY Prescribed by: BARNEY VIDAL on 08/28/20 1332 Pregabalin 150 Mg Capsule, 150 MG PO BID, (Reported) Ropinirole HCl 1 Mg Tablet, 1 MG PO BID, (Reported) Semaglutide 0.25 Mg/0.2 Ml Pen.injctr, 0.5 MG SQ WEEK, (Reported) Patient Home Medication List Home Medication List Reviewed: Yes Review of Systems Review of Systems Constitutional: No chills; dizziness (with standing and walking); No fever; malaise, weakness (general) EENTM: no symptoms reported Respiratory: see HPI Cardiovascular: No chest pain Gastrointestinal: No nausea, No vomiting; other (felt like abdomen gets tight in last few days and then improved after BM) Genitourinary: no symptoms reported Musculoskeletal: see HPI Skin: change in color (bruises in various stages of healing) Psychiatric/Neurological: Weakness (general) Past Qydtyel-Sbrwkt-Mswehh Hx Past Med/Social Hx: Reviewed Nursing Past Med/Soc Hx Patient Social History Alcohol Use: Denies Use Smoking Status: Current Everyday Smoker Type Used: Cigarettes Former Smoker, Quit: Apr 23, 2019 2nd Hand Smoke Exposure: Yes Recent Hopitalizations: No Immunizations Up To Date Tetanus Booster (TDap): Unknown Date of Influenza Vaccine: Apr 09, 2019 Seasonal Allergies Seasonal Allergies: No Past Medical History Surgeries: Yes (KISSING STENTS IN LEGS) Gallbladder, Hysterectomy, Tubal Ligation Respiratory: Yes (home O2; possible pulmonary HTN- sees DR GARCIA) Pneumonia, COPD Currently Using CPAP: Yes Cardiac: Yes High Cholesterol, Hypertension Neurological: Yes Stroke Genitourinary: No Gastrointestinal: Yes Gastroesophageal Reflux Musculoskeletal: No Endocrine: Yes Diabetes, Insulin dep HEENT: No Cancer: No Psychosocial: No Integumentary: No Blood Disorders: No Adverse Reaction/Blood Tranf: No Physical Exam Vital Signs Vital Signs - First Documented 01/04/21 01/04/21 16:00 16:15 Temp 36.3 Pulse 81 Resp 22 B/P (MAP) 130/85 (100) Pulse Ox 86 O2 Delivery Nasal Cannula O2 Flow Rate 15.00 FiO2 92 Capillary Refill : Height, Weight, BMI Height: '" Weight: lbs. oz. 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 Skin: Warm/Dry, Ecchymosis (bruises in various stages of healing) Progress/Results/Core Measures Suspected Sepsis SIRS Temperature: Pulse: Respiratory Rate: Laboratory Tests 01/04/21 16:05: White Blood Count 9.1 Blood Pressure / Mean: Laboratory Tests 01/04/21 16:05: Creatinine 1.15, Platelet Count 142, Total Bilirubin 0.6 Results/Orders Lab Results Laboratory Tests Test 01/04/21 16:05 01/04/21 17:25 Range/Units White Blood Count 9.1 4.3-11.0 10^3/uL Red Blood Count 4.31 L 4.35-5.85 10^6/uL Hemoglobin 12.2 11.5-16.0 G/DL Hematocrit 39 35-52 % Mean Corpuscular Volume 89 80-99 FL Mean Corpuscular Hemoglobin 28 25-34 PG Mean Corpuscular Hemoglobin Concent 32 32-36 G/DL Red Cell Distribution Width 17.2 H 10.0-14.5 % Platelet Count 142 130-400 10^3/uL Mean Platelet Volume 12.2 H 7.4-10.4 FL Immature Granulocyte % (Auto) 1 % Neutrophils (%) (Auto) 82 H 42-75 % Lymphocytes (%) (Auto) 12 12-44 % Monocytes (%) (Auto) 6 0-12 % Eosinophils (%) (Auto) 0 0-10 % Basophils (%) (Auto) 0 0-10 % Neutrophils # (Auto) 7.4 1.8-7.8 X 10^3 Lymphocytes # (Auto) 1.0 1.0-4.0 X 10^3 Monocytes # (Auto) 0.6 0.0-1.0 X 10^3 Eosinophils # (Auto) 0.0 0.0-0.3 10^3/uL Basophils # (Auto) 0.0 0.0-0.1 10^3/uL Immature Granulocyte # (Auto) 0.1 0.0-0.1 10^3/uL Sodium Level 138 135-145 MMOL/L Potassium Level 4.3 3.6-5.0 MMOL/L Chloride Level 103 98-107 MMOL/L Carbon Dioxide Level 20 L 21-32 MMOL/L Anion Gap 15 H 5-14 MMOL/L Blood Urea Nitrogen 32 H 7-18 MG/DL Creatinine 1.15 0.60-1.30 MG/DL Estimat Glomerular Filtration Rate 49 BUN/Creatinine Ratio 28 Glucose Level 284 H 70-105 MG/DL Calcium Level 8.9 8.5-10.1 MG/DL Corrected Calcium 8.9 8.5-10.1 MG/DL Magnesium Level 1.3 L 1.6-2.4 MG/DL Total Bilirubin 0.6 0.1-1.0 MG/DL Aspartate Amino Transf (AST/SGOT) 26 5-34 U/L Alanine Aminotransferase (ALT/SGPT) 26 0-55 U/L Alkaline Phosphatase 155 H 40-136 U/L Troponin I < 0.30 <0.30 NG/ML C-Reactive Protein 0.44 <0.50 MG/DL Pro-B-Type Natriuretic Peptide 6271.0 H <75.0 PG/ML Total Protein 7.2 6.4-8.2 GM/DL Albumin 4.0 3.2-4.5 GM/DL Blood Gas Puncture Site LEFT BRACH Blood Gas Patient Temperature 37 Arterial Blood pH 7.36 L 7.37-7.43 Arterial Blood Partial Pressure CO2 42 35-45 MMHG Arterial Blood Partial Pressure O2 69 L 79-93 MMHG Arterial Blood HCO3 24 23-27 MMOL/L Arterial Blood Total CO2 25.0 21.0-31.0 MMOL/L Arterial Blood Oxygen Saturation 93 L 94-100 % Arterial Blood Base Excess -1.7 -2.5-2.5 MMOL/L Jos Test NA Blood Gas Ventilator Setting NO Blood Gas Inspired Oxygen 15 L My Orders Orders - RITU WOMACK MD Cbc With Automated Diff (01/04/21 16:07) Comprehensive Metabolic Panel (01/04/21 16:07) Chest 1 View Ap/Pa Only (01/04/21 16:07) Magnesium (01/04/21 16:07) Ekg Tracing (01/04/21 16:07) O2 (01/04/21 16:07) Ed Iv/Invasive Line Start (01/04/21 16:07) Sputum Culture (01/04/21 16:07) Monitor-Rhythm Ecg Trace Only (01/04/21 16:07) Crp Fs (01/04/21 16:07) Troponin I Fs (01/04/21 16:07) Probnp Fs (01/04/21 16:07) Arterial Blood Gas (01/04/21 16:07) Ct Head Wo (01/04/21 16:07) Ct Abdomen/Pelvis Wo (01/04/21 16:07) Furosemide Injection (Lasix Injection) (01/04/21 17:57) Acetaminophen Tablet/Caplet (Tylenol T (01/04/21 17:57) Vital Signs/I&O 01/04/21 01/04/21 01/04/21 16:00 16:15 20:23 Temp 36.3 36.6 Pulse 81 97 Resp 22 18 B/P (MAP) 130/85 (100) 130/85 Pulse Ox 86 92 93 O2 Delivery Nasal Cannula High Flow N/C High Flow N/C O2 Flow Rate 15.00 15.00 FiO2 92 Capillary Refill : Progress Note #1: Progress Note check labs, CXR, CT head with her dizziness and weakness, CT abdomen/pelvis to check for her complaint of abdominal tightness and increased lumbar pain and right hip pain since falling in last few days. Continued on home O2 of 2 Lpm and breathing treatment from EMS. Progress Note #2: Progress Note labs show stable blood work but she does have signs of heart failure and some pulmonary edema on CXR without infiltrate. She does have elevated proBNP of 6,271. CT scan of head does not show any acute significant normality. Her CT of abdomen pelvis does not show any lumbar fracture or pelvis fracture. She has mild amount of ascites. Will check with [place] about possible admit vs transfer since her insurance is all through [employer]. 1804 d/w LEANA Virk, from [facility] admissions and since pt is on 12 Lpm of high flow oxygen by nasal cannula they would place her in ICU and she does not think they have any ICU beds, but will check and call back. Pt requesting to go to [facility] if being admitted locally. 1843 LEANA Virk, states that she does not have any ICU beds so pt would need to be admitted at another facility. 1911 d/w Dr. Mcwilliams for hospitalist service and she accepted for admit to ICU at [facility]. Will diurese pt and consult Dr. Uribe with cardiology. ECG Initial ECG Impression Date: Jan 04, 2021 Initial ECG Impression Time: 16:49 Initial ECG Rate: 72 Initial ECG Rhythm: Normal Sinus Initial ECG Comparisson: Unchanged Comment Sinus rhythm with a heart rate 72 bpm. IL interval 172 ms. QT interval 429 ms with a QTc interval [address] elevation. There are some artifact in the V5 and V6 leads. Overall it appears similar to prior tracings in the system. Diagnostic Imaging Diagonstic Imaging: Xray Plain Films/CT/US/NM/MRI: chest Comments [facility] [place] NAME: SILVIO BAIRD [facility] REC#: [id number] PT STATUS: REG ER : 1965 PHYSICIAN: RITU WOMACK MD ADMIT DATE: 01/04/21/ER FS Signed Date of Exam:01/04/21 CHEST 1 VIEW AP/PA ONLY INDICATION: Fall with shortness of breath and cough. TECHNIQUE: Frontal chest obtained at 04:34 p.m. and compared to 08/28/2020. FINDINGS: There is prominent cardiomegaly. There is mild central vascular congestion with borderline edema. There is no consolidation or pneumothorax or pleural fluid. IMPRESSION: Cardiomegaly with central vascular congestion and borderline edema. No consolidation or pleural fluid. Dictated by: Dictated on workstation # [id number] Dict: 01/04/21 1640 Trans: 01/04/21 1657 [id number] Interpreted by: LOLI WELCH MD Electronically signed by: LOLI WELCH MD 01/04/21 1657 Reviewed: Reviewed by Tn Diagonstic Imaging: CT Plain Films/CT/US/NM/MRI: head Comments [facility] [place], [place] NAME: SILVIO BAIRD [facility] REC#: [id number] PT STATUS: REG ER : 1965 PHYSICIAN: RITU WOMACK MD ADMIT DATE: 01/04/21/ER FS Draft Date of Exam:01/04/21 CT HEAD WO CLINICAL INDICATION: Patient with dizziness, fall, and is weak. EXAM: Axial CT scan of the brain without IV contrast with coronal and sagittal reformatted images. Auto Exposure Controls were utilized during the CT exam to meet ALARA standards for radiation dose reduction. COMPARISON: None. FINDINGS: There is skull streak artifact which obscures portions of the brainstem, posterior fossa, and portions of the brain near the skull. There is no evidence of acute cerebral infarct, intracranial hemorrhage, or gross mass effect. The brain parenchymal volume appears appropriate for patient's age. There are subtle focal areas of low-attenuation white matter changes involving both cerebral hemispheres, likely representing chronic small vessel ischemic disease. There is normal cifuentes-white matter distinction. There is no significant midline shift or herniation. There is no evidence of hydrocephalus. The basal cisterns are unremarkable. The skull, extracranial soft tissue, and orbits are unremarkable. The paranasal sinuses are unremarkable. Temporal bones show no significant abnormality. IMPRESSION: 1: There is no evidence of acute intracranial process. 2: Unremarkable CT scan of the brain for age. Dictated on workstation # [id number] Dict: 01/04/21 1639 Trans: 01/04/21 1643 [id number] Interpreted by: LAITH REYES MD Electronically signed by: Reviewed: Reviewed by Me Diagonstic Imaging: CT Plain Films/CT/US/NM/MRI: abdomen, pelvis Comments [facility] [place] NAME: SLIVIO BAIRD [facility] REC#: [id number] PT STATUS: REG ER : 1965 PHYSICIAN: RITU WOMACK MD ADMIT DATE: 01/04/21/ER FS Signed Date of Exam:01/04/21 CT ABDOMEN/PELVIS WO EXAMINATION: CT abdomen and pelvis without contrast. TECHNIQUE: Multiple contiguous axial images were obtained through the abdomen and pelvis without the use of intravenous contrast. All CT scans use one or more of the following dose optimizing techniques: automated exposure control, MA and/or KvP adjustment based on patient size and exam type or iterative reconstruction. HISTORY: Right hip pain and back pain after fall, abdominal tightness. COMPARISON: None available. FINDINGS: Lung bases: Bibasilar dependent atelectasis. Solid organs: There is a mildly nodular contour to the liver. The gallbladder is surgically absent. There is no biliary ductal dilation. Pancreas is normal. The spleen is enlarged measuring up to 15 cm. Adrenal glands are normal. Nonobstructing bilateral renal calculi measuring up to 0.2 cm. No hydronephrosis. Bowel: The stomach and small bowel are normal without obstruction. The colon and appendix are normal. Peritoneum: There is mild perihepatic ascites. Mild ascites within the right paracolic gutter. No intra-abdominal free air. No pathologically enlarged lymph nodes are present. Vasculature: Calcification of the aorta without aneurysm. A vascular stent is present at the aortic bifurcation. Musculoskeletal: Degenerative changes of the spine without suspicious osseous lesion or compression fracture. There is a fat-containing midline abdominal hernia through a 2.0 cm defect. There is mild anasarca. No acute fracture is seen. Pelvis: The uterus is surgically absent. No adnexal mass. The urinary bladder is normal. IMPRESSION: 1. No acute abnormality in the abdomen or pelvis. 2. Mildly nodular contour of the liver which could be seen with cirrhosis in the appropriate clinical setting. Additional findings of ascites and splenomegaly would raise concern for portal hypertension. Dictated by: Dictated on workstation # [id number] Dict: 01/04/21 1640 Trans: 01/04/21 1652 [facility] [id number] Interpreted by: SUMI ALEX DO Electronically signed by: SUMI ALEX DO 01/04/21 1652 Reviewed: Reviewed by Me Departure Communication (Admissions) Time/Spoke to Admitting Phy: 19:12 d/w Dr. Mcwilliams for hospitalist service. Will admit to ICU with her being on high flow O2 by nc at 12 Lpm instead of her baseline 6-8 Lpm. Will give IV lasix for diuresis and consult Dr. Uribe for cardiology Time/Spoke to Consulting Phy: 19:36 d/w Dr. Uribe so he is aware of the patient for consult Impression Primary Impression: Acute exacerbation of CHF (congestive heart failure) Qualified Codes: I50.9 - Heart failure, unspecified Additional Impressions: Dizziness Weak Disposition: 30 STILL A PATIENT Condition: Stable Admissions Decision to Admit Reason: Admit from ER (General) Decision to Admit/Date: Jan 04, 2021 Time/Decision to Admit Time: 19:12 Departure-Patient Inst. Referrals: JEAN ADHIKARI-PUBLIC ADDRESS TECHNICIAN (PCP/Family) Primary Care Physician RITU WOMACK MD Jan 04, 2021 16:15
--- NOTE | 2021-01-04 16:42 | Diagnostic Imaging Report ---
INDICATION: Fall with shortness of breath and cough. TECHNIQUE: Frontal chest obtained at 04:34 p.m. and compared to 08/28/2020. FINDINGS: There is prominent cardiomegaly. There is mild central vascular congestion with borderline edema. There is no consolidation or pneumothorax or pleural fluid. IMPRESSION: Cardiomegaly with central vascular congestion and borderline edema. No consolidation or pleural fluid. Dictated by: Dictated on workstation # [id number]
--- NOTE | 2021-01-04 16:44 | Diagnostic Imaging Report ---
CLINICAL INDICATION: Patient with dizziness, fall, and is weak. EXAM: Axial CT scan of the brain without IV contrast with coronal and sagittal reformatted images. Auto Exposure Controls were utilized during the CT exam to meet ALARA standards for radiation dose reduction. COMPARISON: None. FINDINGS: There is skull streak artifact which obscures portions of the brainstem, posterior fossa, and portions of the brain near the skull. There is no evidence of acute cerebral infarct, intracranial hemorrhage, or gross mass effect. The brain parenchymal volume appears appropriate for patient's age. There are subtle focal areas of low-attenuation white matter changes involving both cerebral hemispheres, likely representing chronic small vessel ischemic disease. There is normal cifuentes-white matter distinction. There is no significant midline shift or herniation. There is no evidence of hydrocephalus. The basal cisterns are unremarkable. The skull, extracranial soft tissue, and orbits are unremarkable. The paranasal sinuses are unremarkable. Temporal bones show no significant abnormality. IMPRESSION: 1: There is no evidence of acute intracranial process. 2: Unremarkable CT scan of the brain for age. Dictated by: Dictated on workstation # [id number]
[2021-01-04 16:45] LABS: BASOPHILS % (AUTO) 0 % (0-10); EOSINOPHILS % (AUTO) 0 % (0-10); HEMATOCRIT 39 % (35-52); HEMOGLOBIN 12.2 G/DL (11.5-16.0); LYMPHOCYTES % (AUTO) 12 % (12-44); MEAN CORPUSCULAR HEMOGLOBIN 28 PG (25-34); MEAN CORPUSCULAR HGB CONC 32 G/DL (32-36); MEAN CORPUSCULAR VOLUME 89 FL (80-99); MEAN PLATELET VOLUME 12.2 FL (7.4-10.4); MONOCYTES # (AUTO) 0.6 X 10^3 (0.0-1.0); MONOCYTES % (AUTO) 6 % (0-12); NEUTROPHILS # (AUTO) 7.4 X 10^3 (1.8-7.8); NEUTROPHILS % (AUTO) 82 % (42-75); PLATELET COUNT 142 10^3/uL (130-400); WHITE BLOOD COUNT 9.1 10^3/uL (4.3-11.0)
--- NOTE | 2021-01-04 16:47 | Diagnostic Imaging Report ---
EXAMINATION: CT abdomen and pelvis without contrast. TECHNIQUE: Multiple contiguous axial images were obtained through the abdomen and pelvis without the use of intravenous contrast. All CT scans use one or more of the following dose optimizing techniques: automated exposure control, MA and/or KvP adjustment based on patient size and exam type or iterative reconstruction. HISTORY: Right hip pain and back pain after fall, abdominal tightness. COMPARISON: None available. FINDINGS: Lung bases: Bibasilar dependent atelectasis. Solid organs: There is a mildly nodular contour to the liver. The gallbladder is surgically absent. There is no biliary ductal dilation. Pancreas is normal. The spleen is enlarged measuring up to 15 cm. Adrenal glands are normal. Nonobstructing bilateral renal calculi measuring up to 0.2 cm. No hydronephrosis. Bowel: The stomach and small bowel are normal without obstruction. The colon and appendix are normal. Peritoneum: There is mild perihepatic ascites. Mild ascites within the right paracolic gutter. No intra-abdominal free air. No pathologically enlarged lymph nodes are present. Vasculature: Calcification of the aorta without aneurysm. A vascular stent is present at the aortic bifurcation. Musculoskeletal: Degenerative changes of the spine without suspicious osseous lesion or compression fracture. There is a fat-containing midline abdominal hernia through a 2.0 cm defect. There is mild anasarca. No acute fracture is seen. Pelvis: The uterus is surgically absent. No adnexal mass. The urinary bladder is normal. IMPRESSION: 1. No acute abnormality in the abdomen or pelvis. 2. Mildly nodular contour of the liver which could be seen with cirrhosis in the appropriate clinical setting. Additional findings of ascites and splenomegaly would raise concern for portal hypertension. Dictated by: Dictated on workstation # [id number]
[2021-01-04 17:08] LABS: BILIRUBIN,TOTAL 0.6 MG/DL (0.1-1.0); BUN/CREATININE RATIO 28; CALCIUM 8.9 MG/DL (8.5-10.1); CARBON DIOXIDE 20 MMOL/L (21-32); CHLORIDE 103 MMOL/L (98-107); CREATININE SERUM 1.15 MG/DL (0.60-1.30); GFR ESTIMATED 49; GLUCOSE 284 MG/DL (70-105); MAGNESIUM 1.3 MG/DL (1.6-2.4); POTASSIUM 4.3 MMOL/L (3.6-5.0); SODIUM 138 MMOL/L (135-145)
[2021-01-04 17:09] LABS: ALANINE AMINOTRANSFERASE 26 U/L (0-55); ALKALINE PHOSPHATASE 155 U/L (40-136); TOTAL PROTEIN 7.2 GM/DL (6.4-8.2)
[2021-01-04 17:31] LABS: ABG BASE EXCESS -1.7 MMOL/L (-2.5-2.5); ABG OXYGEN SATURATION 93 % (94-100); ABG PCO2 42 MMHG (35-45); ABG PH 7.36 (7.37-7.43); ABG PO2 69 MMHG (79-93)
[2021-01-04 17:32] LABS: INSPIRED O2 15 L; PATIENT TEMP 37; VENTILATOR NO
[2021-01-04] MEDS ORDERED: FUROSEMIDE 40 MG/4 ML INJ (LASIX) IVP STA (17:57)
[2021-01-04] MEDS ORDERED: ACETAMINOPHEN 325 MG TABLET PO STA (17:57)
--- NOTE | 2021-01-04 23:05 | Tele-ICU Progress Note ---
Subjective Date Seen by a Provider: Jan 04, 2021 Time Seen by a Provider: 10:45 Subjective/Events-last exam Admitted with CHF, resp fail, Covid pending. PNH: COPD, PH, HL, HTN, CHF,RLS. PE moderate distress obese 84 NSR 130/85 95% on 15 LPM. P: monitor, diazul D/W BURAK POPE Review of Systems HEENT: Other Pulmonary: Dyspnea Sepsis Event Evaluation Sepsis Stage: Ruled Out Reason for ruling out sepsis: no evidence Height, Weight, BMI Height: '" Weight: lbs. oz. kg; 47.00 BMI Method: Bedside Monitoring Date besdie monitoring occurre: Jan 04, 2021 Time bedside monitoring occure: 21:00 Focused Exam Sepsis Stage: Ruled Out Exam Exam Patient acknowledged, consented, and participated in this virtual visit which was conducted using real time audio/video Vital Signs Date Time Temp Pulse Resp B/P (MAP) Pulse Ox O2 Delivery O2 Flow Rate FiO2 01/04/21 20:23 36.6 97 18 130/85 93 High Flow N/C 15.00 01/04/21 16:15 92 High Flow N/C 15.00 92 01/04/21 16:00 36.3 81 22 130/85 (100) 86 Nasal Cannula Height & Weight Height: '" Weight: lbs. oz. kg; 47.00 BMI Method: General Appearance: No Apparent Distress, WD/WN, Anxious, Chronically ill, Cachetic, Mild Distress, Moderate Distress, Obese, Severe Distress, Thin, Other HEENT: PERRL/EOMI, Pharynx Normal Neck: Full Range of Motion, Normal Inspection, Non Tender, Supple Respiratory: Chest Non Tender, Lungs Clear, Normal Breath Sounds, No Accessory Muscle Use, No Respiratory Distress, Accessory Muscle Use, Crackles, Decreased Breath Sounds, Expiration, Inspiration, Pleural Rub, Rales, Respiratory Distress, Rhonci, Stridor, Wheezing, Other Cardiovascular: Regular Rate, Rhythm, Normal Peripheral Pulses Capillary Refill: Less Than 3 Seconds Peripheral Pulses: 2+ Dorsalis Pedis (R), 2+ Left Dors-Pedis (L) Extremity: Normal Capillary Refill, Pedal Edema (1+ BLE) Neurologic/Psychiatric: Alert, 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
[2021-01-04] MEDS ORDERED: CATHETER FLUSH 10 ML SYR IV PRN (23:30)
[2021-01-04 23:41] VITALS: BP 130/85
[2021-01-04] MEDS ORDERED: RT-ALBUTEROL/IPRATROPIUM 3 ML (DUONEB) VIAL INH PRN (23:45)
[2021-01-05] MEDS: ACETAMINOPHEN 325 MG TABLET PO PRN ×3 (00:17→15:45)
[2021-01-05] MEDS: RT-ALBUTEROL/IPRATROPIUM 3 ML (DUONEB) VIAL INH SCH ×4 (02:34→22:05)
[2021-01-05 04:15] LABS: BASOPHILS % (AUTO) 0 % (0-10); EOSINOPHILS % (AUTO) 0 % (0-10); HEMATOCRIT 37 % (35-52); HEMOGLOBIN 11.8 g/dL (11.5-16.0); LYMPHOCYTES # (AUTO) 1.7 10^3/uL (1.0-4.0); LYMPHOCYTES % (AUTO) 28 % (12-44); MEAN CORPUSCULAR HEMOGLOBIN 28 pg (25-34); MEAN CORPUSCULAR HGB CONC 32 g/dL (32-36); MEAN CORPUSCULAR VOLUME 89 fL (80-99); MEAN PLATELET VOLUME 12.8 fL (9.0-12.2); MONOCYTES # (AUTO) 0.5 10^3/uL (0.0-1.0); MONOCYTES % (AUTO) 9 % (0-12); NEUTROPHILS # (AUTO) 3.8 10^3/uL (1.8-7.8); NEUTROPHILS % (AUTO) 63 % (42-75); PLATELET COUNT 98 10^3/uL (130-400)
[2021-01-05 04:41] LABS: ALBUMIN 3.5 GM/DL (3.2-4.5); POTASSIUM 4.2 MMOL/L (3.6-5.0)
[2021-01-05 04:42] LABS: CALCIUM 8.8 MG/DL (8.5-10.1)
[2021-01-05 04:44] LABS: TOTAL PROTEIN 6.9 GM/DL (6.4-8.2)
[2021-01-05 04:45] LABS: BILIRUBIN,TOTAL 0.5 MG/DL (0.1-1.0)
[2021-01-05 04:47] LABS: CREATININE SERUM 1.29 MG/DL (0.60-1.30); PHOSPHORUS 3.9 MG/DL (2.3-4.7)
[2021-01-05 04:51] LABS: MAGNESIUM 1.3 MG/DL (1.6-2.4)
[2021-01-05] MEDS: POTASSIUM CL 10MEQ/50ML IVPB 50 ML IV SCH (04:54)
[2021-01-05] MEDS: KCL 20 MEQ TAB (K-DUR) PO SCH (04:55)
[2021-01-05] MEDS: MAGNESIUM 1 GM/100 ML IVPB 100 ML IV SCH ×5 (04:56→06:57)
[2021-01-05] MEDS: CATHETER FLUSH 10 ML SYR IV SCH ×3 (05:08→20:35)
[2021-01-05] MEDS: inSUlin ASPART (NovoLOG) 1 UNIT/0.01 ML (CHARGE PER UNIT) SC SCH ×6 (06:42→20:50)
[2021-01-05] MEDS ORDERED: predniSONE 5 MG TAB PO ONE (08:00)
--- NOTE | 2021-01-05 08:14 | History & Physical-Hospitalist ---
History of Present Illness HPI/Chief Complaint Ms Baird is a 55yoCF with a PMH of oxygen dependent COPD, HTN IDDMII, CAD, peripheral neuropathy, HLD who presented to the ER due to weakness and falls. She reports that she has not been feeling well for a few days and had a couple of falls. She was able to get up with the help of her family and caretakers but her daughter insisted she come to the ER. She was found to be hypoxic at 84% on her baseline 8 lpm on arrival to the ER. Her BNP was over 6k and her chest x-ray indicated pulm vascular congestion. She required 15lpm HFNC to maintain oxygen saturations. She was admitted to the ICU due to her high oxygen requirements. This morning she states she is breathing better and she is down to 10lpm. She is requesting resuming her home prednisone dose. Source: patient Date Seen 01/05/21 Time Seen by a Provider: 08:08 Attending Physician Ivette Mcwilliams MD PCP Edmond Heath DO Referring Physician Date of Admission Jan 04, 2021 at 22:36 Home Medications & Allergies Home Medications Reviewed patient Home Medication Reconciliation performed by pharmacy medication reconciliations operating room surgical technician and/or nursing. Patients Allergies have been reviewed. Allergies Allergies Coded Allergies lisinopril (Verified Allergy, Unknown, 05/24/19) metformin (Verified Allergy, Unknown, 07/31/19) saxagliptin (Verified Allergy, Unknown, 07/31/19) simvastatin (Verified Allergy, Unknown, weakness, 05/24/19) Past Lsohoaw-Tiuaww-Yrlxul Hx Patient Social History Tobacco Use?: No Smoking Status: Former Smoker Substance use?: No Alcohol Use?: No Pt feels they are or have been: No Immunizations Up To Date Date of Influenza Vaccine: Apr 09, 2019 First/Initial COVID19 Vaccinat: OCTOBER 2020 Second COVID19 Vaccination Justyn: SEPTEMBER 23, 2020 Seasonal Allergies Seasonal Allergies: No Current Status status: No status: No Advance Directives: No Advance Directive Location: Home Communicates: Verbally Primary Language: Rwandan Preferred Spoken Language: Rwandan Is interpretation needed?: No Past Medical History Surgeries: Gallbladder, Hysterectomy, Tubal Ligation Pneumonia, COPD Currently Using CPAP: Yes High Cholesterol, Hypertension Stroke Gastroesophageal Reflux Diabetes, Insulin dep Blood Disorders: No Adverse Reaction/Blood Tranf: No Review of Systems Constitutional: No chills, No fever; malaise, weakness EENTM: no symptoms reported Respiratory: cough, dyspnea on exertion, short of breath Cardiovascular: No chest pain Gastrointestinal: no symptoms reported Genitourinary: no symptoms reported Musculoskeletal: see HPI Skin: no symptoms reported Psychiatric/Neurological: No Symptoms Reported Physical Exam Physical Exam Vital Signs Vital Signs - First Documented 01/04/21 01/04/21 16:00 16:15 Temp 36.3 Pulse 81 Resp 22 B/P (MAP) 130/85 (100) Pulse Ox 86 O2 Delivery Nasal Cannula O2 Flow Rate 15.00 FiO2 92 Capillary Refill : Less Than 3 Seconds Height, Weight, BMI Height: '" Weight: lbs. oz. kg; 46.85 BMI Method: General Appearance: No Apparent Distress, Chronically ill, Obese HEENT: PERRL/EOMI, Moist Mucous Membranes; No Scleral Icterus (L), No Scleral Icterus (R) Neck: Normal Inspection, Supple Respiratory: Lungs Clear, No Accessory Muscle Use, Other (on 10lpm) Cardiovascular: Regular Rate, Rhythm, No Murmur Gastrointestinal: Normal Bowel Sounds, Non Tender, Soft Extremity: No Calf Tenderness, Pedal Edema Neurologic/Psychiatric: Alert, Oriented x3, Normal Mood/Affect Results Results/Procedures Labs Laboratory Tests 01/04/21 16:05 01/05/21 03:44 01/06/21 05:05 Patient resulted labs reviewed. Imaging: Reviewed Imaging Report Imaging [facility], [place] NAME: SILVIO BAIRD [facility] REC#: [id number] PT STATUS: REG ER : 1965 PHYSICIAN: RITU WOMACK MD ADMIT DATE: 01/04/21/ER FS Signed Date of Exam:01/04/21 CT ABDOMEN/PELVIS WO EXAMINATION: CT abdomen and pelvis without contrast. TECHNIQUE: Multiple contiguous axial images were obtained through the abdomen and pelvis without the use of intravenous contrast. All CT scans use one or more of the following dose optimizing techniques: automated exposure control, MA and/or KvP adjustment based on patient size and exam type or iterative reconstruction. HISTORY: Right hip pain and back pain after fall, abdominal tightness. COMPARISON: None available. FINDINGS: Lung bases: Bibasilar dependent atelectasis. Solid organs: There is a mildly nodular contour to the liver. The gallbladder is surgically absent. There is no biliary ductal dilation. Pancreas is normal. The spleen is enlarged measuring up to 15 cm. Adrenal glands are normal. Nonobstructing bilateral renal calculi measuring up to 0.2 cm. No hydronephrosis. Bowel: The stomach and small bowel are normal without obstruction. The colon and appendix are normal. Peritoneum: There is mild perihepatic ascites. Mild ascites within the right paracolic gutter. No intra-abdominal free air. No pathologically enlarged lymph nodes are present. Vasculature: Calcification of the aorta without aneurysm. A vascular stent is present at the aortic bifurcation. Musculoskeletal: Degenerative changes of the spine without suspicious osseous lesion or compression fracture. There is a fat-containing midline abdominal hernia through a 2.0 cm defect. There is mild anasarca. No acute fracture is seen. Pelvis: The uterus is surgically absent. No adnexal mass. The urinary bladder is normal. IMPRESSION: 1. No acute abnormality in the abdomen or pelvis. 2. Mildly nodular contour of the liver which could be seen with cirrhosis in the appropriate clinical setting. Additional findings of ascites and splenomegaly would raise concern for portal hypertension. Dictated by: Dictated on workstation # [id number] Dict: 01/04/21 1640 Trans: 01/04/211651 [facility] [id number] Interpreted by: SUMI ALEX DO Electronically signed by: SUMI ALEX DO 01/04/211651 [facility], [place] NAME: SILVIO BAIRD [facility] REC#: [id number] PT STATUS: REG ER : 1965 PHYSICIAN: RITU WOMACK MD ADMIT DATE: 01/04/21/ER FS Signed Date of Exam:01/04/21 CHEST 1 VIEW AP/PA ONLY INDICATION: Fall with shortness of breath and cough. TECHNIQUE: Frontal chest obtained at 04:34 p.m. and compared to 08/28/2020. FINDINGS: There is prominent cardiomegaly. There is mild central vascular congestion with borderline edema. There is no consolidation or pneumothorax or pleural fluid. IMPRESSION: Cardiomegaly with central vascular congestion and borderline edema. No consolidation or pleural fluid. Dictated by: Dictated on workstation # [id number] Dict: 01/04/21 1640 Trans: 01/04/21 1657 [id number] Interpreted by: LOLI WELCH MD Electronically signed by: LOLI WELCH MD 01/04/21 4201 Assessment/Plan Admission Diagnosis Acute on Chronic Respiratory Failure due to decompensated CHF Admission Status: Inpatient Order (span 2 midnights) Reason for Inpatient Admission: see below Assessment and Plan Acute on Chronic Respiratory Failure due to decompensated CHF Labs and CXR consistent with CHF exacerbation EF preserved on echo from 18months ago Improved with lasix Echo ordered Cardiology consulted, appreciate recs Monitor I/Os Oxygen dependent COPD Wears 8lpm at baseline TeleICU consulted, will continue pulm consult when out of ICU Resume home meds when confirmed Continue 5mg prednisone as she believes that's her dose, will adjust if not accurate on med rec IDDMII Continue home meds BS 214 this AM SSI HTN HLD No acute needs, resume home meds Hypomagnesemia Replaced per protoco Debility and falls PT/OT DVT ppx: IVETTE Horvath MD Jan 05, 2021 08:14
[2021-01-05] MEDS: FUROSEMIDE 40 MG/4 ML INJ (LASIX) IV SCH ×2 (08:57→20:33)
--- NOTE | 2021-01-05 08:57 | Consultation-Cardiology ---
HPI-Cardiology Cardiology Consultation: Date of Consultation 01/05/21 Time Seen by a Provider: 08:15 Date of Admission 01-04-21 Attending Physician Charisse Mcwilliams MD Admitting Physician Edmond Heath DO Consulting Physician Kip Uribe MD HPI: Chief Complaint: Acute on chronic CHF Ms. Baird is a 55 yr old female admitted to ICU 8 from the ED with c/o increasing SOB, dizziness and non-syncopal fall. She reports [facility] [place] [facility]. She states on Monday she had gotten up to use the BR, she uses a walker, she states she felt dizzy and fell. She states the dizziness persisted through the weekend. She reports yesterday she again fell at home. She does not report any syncope or near syncope. She reports increasing SOB over the last few days as well. No c/o CP, palpitations or LE swelling. No c/o n/v/d. No c/o fever or chills. Review of Systems-Cardiology Review of Systems Constitutional: No chills, No fever; lightheadedness Eyes: No vision change Ears/Nose/Throat: No epistaxis, No recent hearing loss Respiratory: As described under HPI Cardiovascular: As described under HPI Gastrointestinal: No constipation, No diarrhea, No nausea, No vomiting Genitourinary: No dysuria, No hematuria Skin: No rash on exposed areas, No ulcerations on exposed areas Psychiatric/Neurological: No anxiety, No depression, No seizure, No focal weakness, No syncope Hematologic: No bleeding abnormalities RSR-Olmkjw-Ivrnrh Hx Patient Social History Smoking Status: Former Smoker 2nd Hand Smoke Exposure: Yes Have you traveled recently?: No Alcohol Use?: No Pt feels they are or have been: No Immunizations Up To Date Tetanus Booster (TDap): Unknown Date of Influenza Vaccine: Apr 09, 2019 Past Medical History PMH As described under Assessment. Family Medical History Family Medical History: She reports her father had CAD. She reports a brother recently passed with following an CT. Allergies and Home Medications Allergies Coded Allergies: lisinopril (Verified Allergy, Unknown, 05/24/19) metformin (Verified Allergy, Unknown, 07/31/19) saxagliptin (Verified Allergy, Unknown, 07/31/19) simvastatin (Verified Allergy, Unknown, weakness, 05/24/19) Home Medications Acetaminophen 500 Mg Tablet, 1,000 MG PO BID PRN for PAIN-MILD (1-4), (Reported) Last Action: Reviewed Albuterol Sulfate 2.5 Mg/0.5 Ml Vial.neb, 2.5 MG INH Q6H PRN for SHORTNESS OF BREATH, (Reported) Last Action: Continued Albuterol Sulfate 1 Puff Puff, 2 PUFF IH Q6H PRN for SHORTNESS OF BREATH, (Reported) Last Action: Continued Aspirin 81 Mg Tab.chew, 81 MG PO HS, (Reported) Last Action: Reviewed Atorvastatin Calcium 80 Mg Tablet, 80 MG PO HS, (Reported) Last Action: Continued Budesonide/Formoterol Fumarate 10.2 Gm Hfa.aer.ad, 2 PUFF IH BID, (Reported) Last Action: Converted Cetirizine HCl 10 Mg Tab.chew, 10 MG PO DAILY, (Reported) Last Action: Converted Clopidogrel Bisulfate 75 Mg Tablet, 75 MG PO HS, (Reported) Last Action: Continued Diclofenac Sodium 100 Gm Gel..gram., 4 GM TP QID PRN for INFLAMMATION/PAIN, (Reported) Last Action: Continued Esomeprazole Magnesium 40 Mg Cap, 40 MG PO DAILY, (Reported) MAY OPEN CAPSULE AND SPRINKLE ON APPLESAUCE Last Action: Converted Fluticasone Propionate 9.9 Ml [place].susp, 2 SPRAY NS DAILY PRN for CONGESTION, (Reported) Last Action: Held Furosemide 40 Mg Tablet, 40 MG PO DAILY, (Reported) Last Action: Continued Insulin Aspart 100 Unit/1 Ml Susp, 30 UNIT SQ AC, (Reported) Last Action: Held Insulin Glargine,Hum.rec.anlog 100 Unit/1 Ml Vial, 110 UNIT SQ HS, (Reported) Last Action: Held Losartan Potassium 25 Mg Tablet, 25 MG PO HS, (Reported) Last Action: Continued Metformin HCl 500 Mg Tab.er.24, 1,000 MG PO BID, (Reported) TAKES 2 (500MG) TABS Last Action: Held Metoprolol Succinate 25 Mg Tab.er.24h, 25 MG PO DAILY, (Reported) Last Action: Continued Montelukast Sodium 10 Mg Tablet, 10 MG PO HS, (Reported) Last Action: Continued Potassium Chloride 10 Meq Tab.er.prt, 20 MEQ PO DAILY, (Reported) TAKES 2 (10MEQ) TABS Last Action: Converted Prednisone 5 Mg Tablet, MG PO DAILY, (Reported) TAPER DIRECTIONS: 6 TABS ON DAY 1 AND DECREASE BY 1 TAB EACH DAY UNTIL FI NISHED (6,5,4,3,2,1) Last Action: Held Pregabalin 225 Mg Capsule, 225 MG PO BID, (Reported) Last Action: Converted Ropinirole HCl 1 Mg Tablet, 1 MG PO BID, (Reported) Last Action: Continued Semaglutide 1 Mg/0.75 Ml Pen.injctr, 1 MG SQ FRI, (Reported) Last Action: Held Physical Exam-Cardiology Physical Exam Vital Signs/I&O 01/06/21 01/06/21 01/06/21 01/06/21 02:41 04:30 06:35 08:00 Temp 36.1 35.6 Pulse 87 90 70 Resp 18 20 B/P (MAP) 147/71 (96) 176/71 (106) Pulse Ox 84 92 92 O2 Delivery Nasal Cannula High Flow N/C High Flow N/C O2 Flow Rate 8.00 8.00 8.00 01/06/21 01/06/21 01/06/21 01/06/21 08:00 08:21 10:09 12:22 Pulse 82 B/P (MAP) 144/69 (94) Pulse Ox 92 O2 Delivery Nasal Cannula Nasal Cannula O2 Flow Rate 8.00 8.00 01/06/21 12:33 Temp 35.5 Pulse 79 Resp 22 B/P (MAP) 164/78 (106) Pulse Ox 91 O2 Delivery High Flow N/C O2 Flow Rate 8.00 01/06/21 00:00 Intake Total 750 ml Output Total 950 ml Balance -200 ml Capillary Refill : Less Than 3 Seconds Constitutional: AAO x 3, well-developed, well-nourished HEENT: PERRL, hearing is well preserved, oral hygience is good Neck: No carotid bruit; carotid pulses are 2 + bilaterally Respiratory: No accessory muscle use, No respiratory distress; chest expansion is symmetric, chest is bilaterally symmetric, other (diminished lower lobes bilat; prolonged exp phase) Cardiovascular: regular rate-rhythm; No JVD; tachycardia Gastrointestinal: No tender; soft, round, audible bowel sounds Extremities: no lower extremity edema bilateral Neurologic/Psychiatric: grossly intact (moves all extremities) Skin: No rash on exposed areas, No ulcerations on exposed areas Data Review Labs Laboratory Tests 01/05/21 15:30: D-Dimer 2.10H 01/05/21 15:42: Glucometer 266H 01/05/21 20:06: Glucometer 232H 01/06/21 05:05: White Blood Count 5.7, Red Blood Count 3.90, Hemoglobin 11.0L, Hematocrit 35, Mean Corpuscular Volume 90, Mean Corpuscular Hemoglobin 28, Mean Corpuscular Hemoglobin Concent 31L, Red Cell Distribution Width 17.1H, Platelet Count 101L, Mean Platelet Volume 12.8H, Immature Granulocyte % (Auto) 0, Neutrophils (%) (Auto) 71, Lymphocytes (%) (Auto) 20, Monocytes (%) (Auto) 9, Eosinophils (%) (Auto) 0, Basophils (%) (Auto) 0, Neutrophils # (Auto) 4.1, Lymphocytes # (Auto) 1.1, Monocytes # (Auto) 0.5, Eosinophils # (Auto) 0.0, Basophils # (Auto) 0.0, Immature Granulocyte # (Auto) 0.0, Percent Immature Platelet Fraction 9.9H, Sodium Level 143, Potassium Level 3.2L, Chloride Level 105, Carbon Dioxide Level 24, Anion Gap 14, Blood Urea Nitrogen 28H, Creatinine 1.20, Estimat Glomerular Filtration Rate 47, BUN/Creatinine Ratio 23, Glucose Level 200H, Calcium Level 9.1, Phosphorus Level 4.1, Magnesium Level 1.8 01/06/21 05:27: Glucometer 195H 01/06/21 11:18: Glucometer 246H Microbiology 01/04/21 MRSA Screen - Final, Complete MRSA not isolated Radiology NAME: SILVIO BAIRD [facility] REC#: [id number] PT STATUS: REG ER : 1965 PHYSICIAN: RITU WOMACK MD ADMIT DATE: 01/04/21/ER FS Signed Date of Exam:01/04/21 CT ABDOMEN/PELVIS WO EXAMINATION: CT abdomen and pelvis without contrast. TECHNIQUE: Multiple contiguous axial images were obtained through the abdomen and pelvis without the use of intravenous contrast. All CT scans use one or more of the following dose optimizing techniques: automated exposure control, MA and/or KvP adjustment based on patient size and exam type or iterative reconstruction. HISTORY: Right hip pain and back pain after fall, abdominal tightness. COMPARISON: None available. FINDINGS: Lung bases: Bibasilar dependent atelectasis. Solid organs: There is a mildly nodular contour to the liver. The gallbladder is surgically absent. There is no biliary ductal dilation. Pancreas is normal. The spleen is enlarged measuring up to 15 cm. Adrenal glands are normal. Nonobstructing bilateral renal calculi measuring up to 0.2 cm. No hydronephrosis. Bowel: The stomach and small bowel are normal without obstruction. The colon and appendix are normal. Peritoneum: There is mild perihepatic ascites. Mild ascites within the right paracolic gutter. No intra-abdominal free air. No pathologically enlarged lymph nodes are present. Vasculature: Calcification of the aorta without aneurysm. A vascular stent is present at the aortic bifurcation. Musculoskeletal: Degenerative changes of the spine without suspicious osseous lesion or compression fracture. There is a fat-containing midline abdominal hernia through a 2.0 cm defect. There is mild anasarca. No acute fracture is seen. Pelvis: The uterus is surgically absent. No adnexal mass. The urinary bladder is normal. IMPRESSION: 1. No acute abnormality in the abdomen or pelvis. 2. Mildly nodular contour of the liver which could be seen with cirrhosis in the appropriate clinical setting. Additional findings of ascites and splenomegaly would raise concern for portal hypertension. Dictated by: Dictated on workstation # [id number] Dict: 01/04/21 1640 Trans: 01/04/211651 [facility] [id number] Interpreted by: SUMI ALEX DO Electronically signed by: SUMI ALEX DO 01/04/211651 NAME: SILVIO BAIRD [facility] REC#: [id number] PT STATUS: REG ER : 1965 PHYSICIAN: RITU WOMACK MD ADMIT DATE: 01/04/21/ER FS Signed Date of Exam:01/04/21 CHEST 1 VIEW AP/PA ONLY INDICATION: Fall with shortness of breath and cough. TECHNIQUE: Frontal chest obtained at 04:34 p.m. and compared to 08/28/2020. FINDINGS: There is prominent cardiomegaly. There is mild central vascular congestion with borderline edema. There is no consolidation or pneumothorax or pleural fluid. IMPRESSION: Cardiomegaly with central vascular congestion and borderline edema. No consolidation or pleural fluid. Dictated by: Dictated on workstation # [id number] Dict: 01/04/21 1640 Trans: 01/04/217 [facility] [id number] Interpreted by: LOLI WELCH MD Electronically signed by: LOLI WELCH MD 01/04/21 165 NAME: SILVIO BAIRD [facility] REC#: [id number] PT STATUS: REG ER : 1965 PHYSICIAN: RITU WOMACK MD ADMIT DATE: 01/04/21/ER FS Signed Date of Exam:01/04/21 CT HEAD WO CLINICAL INDICATION: Patient with dizziness, fall, and is weak. EXAM: Axial CT scan of the brain without IV contrast with coronal and sagittal reformatted images. Auto Exposure Controls were utilized during the CT exam to meet ALARA standards for radiation dose reduction. COMPARISON: None. FINDINGS: There is skull streak artifact which obscures portions of the brainstem, posterior fossa, and portions of the brain near the skull. There is no evidence of acute cerebral infarct, intracranial hemorrhage, or gross mass effect. The brain parenchymal volume appears appropriate for patient's age. There are subtle focal areas of low-attenuation white matter changes involving both cerebral hemispheres, likely representing chronic small vessel ischemic disease. There is normal cifuentes-white matter distinction. There is no significant midline shift or herniation. There is no evidence of hydrocephalus. The basal cisterns are unremarkable. The skull, extracranial soft tissue, and orbits are unremarkable. The paranasal sinuses are unremarkable. Temporal bones show no significant abnormality. IMPRESSION: 1: There is no evidence of acute intracranial process. 2: Unremarkable CT scan of the brain for age. Dictated by: Dictated on workstation # [id number] Dict: 01/04/21 1639 Trans: 01/04/21 2016 [id number] Interpreted by: LAITH REYES MD Electronically signed by: LAITH REYES MD 01/04/212015 ECG Impression ECG Initial ECG Rhythm: Normal Sinus A/P-Cardiology Assessment/Admission Diagnosis Increasing SOB, likely multi-factorial d/t acute decompensated diastolic CHF and acute exacerbation of COPD Acute on chronic decompensated CHF Dizziness of undetermined etiology - possibly secondary to medications (reports started after starting Toprol XL) Non-syncopal fall on Monday Acute on chronic exacerbation of COPD - oxygen dependant Cardiac cath of 07-31-[address] Lanier showed mild non-obstructive dz with mildly elevated LVEDP Tobaccoism - stopped 2 weeks ago DM HLD HTN H/O CVA approx 4 yrs ago H/O R CEA 4 yrs ago at the [facility] PAD - h/o kissing stents bilat LE - details unknown - done approx 4 yrs ago at the [facility] - reports had f/u with the [facility] last week for f/u u/s on legs and neck - reports everything was "good" Peripheral neuropathy H/O left sided vocal cord paralysis - details unknown H/O cholecystectomy Elevated BMI approx 47 Hypomagnesium Discussion and Recomendations Acute on chronic decompensated CHF - treat with diuretics Acute on chronic exacerbation of COPD - management per medical services Echocardiogram to eval structure and function Replace electrolytes Dizziness of undetermined etiology possibly d/t medications - hold ARB and BB for now Monitor lab closely Restart ASA/Plavix d/t reported h/o RCEA and PAD Further recs will be based on her hospital course We would like to thank medical services for this consult ROMANA SARGENT Jan 05, 2021 08:57
[2021-01-05] MEDS ORDERED: ENOXAPARIN 40 MG/0.4 ML (LOVENOX) SYR SC SCH (09:00)
--- NOTE | 2021-01-05 09:05 | Diagnostic Imaging Report ---
CHEST 1 VIEW, AP/PA ONLY Indication: Shortness of breath and hypoxia Comparison: 01/04/2021 Findings: Stable enlargement of cardiac silhouette. Central vascular indistinctness is similar. No consolidations have developed in the visualized lungs. Posterior lower lobes are poorly evaluated by portable radiography. No appreciable pleural effusion or pneumothorax. Atherosclerotic aorta is unchanged. Impression: 1. Unchanged cardiomegaly with central vascular congestion. No radiographic features of pulmonary edema or pleural effusion. Dictated by: Dictated on workstation # [id number]
[2021-01-05] MEDS: FLUTICASONE NASAL SPRAY (FLONASE) 16 GM BTL NS SCH (09:10)
--- NOTE | 2021-01-05 09:24 | Physical Therapy Evaluation ---
PT Evaluation-General Medical Diagnosis Admission Date Jan 04, 2021 at 22:36 Medical Diagnosis: CHF exacerbation Onset Date: Jan 04, 2021 Therapy Diagnosis Therapy Diagnosis: debility/weakness Precautions Precautions/Isolations: Fall Prevention, Standard Precautions Referral Physician: Oj Reason for Referral: Evaluation/Treatment Medical History Pertinent Medical History: COPD (6-8L continuous at home), CVA, DM, HTN, Neuropathy, Smoking Current History EMS secondary to fall from being dizzy Reviewed History: Yes Social History Home: Apartment Current Living Status: Alone Entry Into Home: Level Entry has caregiver assist in home Prior Prior Level of Function SCALE: Activities may be completed with or without assistive devices. 6-Azkwulzypn-hqakrfk completes the activity by him/herself with no assistance from a helper. 5-Set-up or Clean-up Assistance-helper sets up or cleans up; patient completes activity. [place] assists only prior to or following the activity. 4-Supervision or Touching Assistance-helper provides verbal cues and/or touching/steadying and/or contact guard assistance as patient completes activity. Assistance may be provided throughout the activity or intermittently. 3-Partial/Moderate Assistance-helper does LESS THAN HALF the effort. [place] lifts, holds or supports trunk or limbs, but provides less than half the effort. 2-Substantial/Maximal Assistance-helper does MORE THAN HALF the effort. [place] lifts or holds trunk or limbs and provides more than half the effort. 4-Hlzgenpeu-oyzznw does ALL the effort. Patient does none of the effort to complete the activity. Or, the assistance of 2 or more helpers is required for the patient to complete the activity. If activity was not attempted, code reason: 7-Patient Refused. 9-Not Applicable-not attempted and the patient did not perform the activity before the current illness, exacerbation or injury. 10-Not Attempted due to Environmental Limitations-(lack of equipment, weather restraints, etc.). 88-Not Attempted due to Medical Conditions or Safety Concerns. Bed Mobility: 6 Transfers (B,C,W/C): 6 Gait: 6 Stairs: 9 Indoor Mobility (Ambulation): Independent Stairs: Not Applicalbe Prior Devices Use: None PT Evaluation-Current Subjective Patient agrees to PT. No c/o. Objective Patient Orientation: Normal For Age Attachments: Oxygen (10L HF), IV ROM/Strength ROM Lower Extremities bilateral LE WFL Strength Lower Extremities 4/5 grossly bilateral LE all planes Integumentary/Posture Bowel Incontinence: No Bladder Incontinence: No Posture WFL Neuromuscular (Tone, Coordination, Reflexes) grossly intact Sensory Vision: Wears Glasses Hearing: Functional Sensation Right Lower Extremit: Impaired Sensation Left Lower Extremity: Impaired Transfers Lying to Sitting/Side of Bed(Q: 3 Sit to Stand (QC): 4 Chair/Avt-gf-Fjjhj Xfer(QC): 4 Gait Does the Patient Walk?: Yes Mode of Locomotion: Walk Anticipated Mode of Locomotion: Walk Walk 10 feet (QC): 4 Walk 50 ft with 2 Turns(QC): 88 Distance: 15' Gait Assistive Device: FWW Comments/Gait Description functional gait sequence (decreased SAO2 to 84% with activity) Wheelchair Training Does the Pt Use a Wheelchair?: No Balance Sitting Static: Normal Sitting Dynamic: Normal Standing Static: Normal Standing Dynamic: Normal Assessment/Needs 55 y.o. female, will be seen by skilled PT to address functional strength and mobility to improve current LOF to safely return to home with caregiver at [facility]. Rehab Potential: Fair PT Mine Boss Goals Detention Goals PT Mine Boss Goals Time Frame: Jan 16, 2021 Roll Left & Right (QC): 6 Sit to Lying (QC): 6 Lying-Sitting on Side/Bed(QC): 6 Sit to Stand (QC): 6 Chair/Gbt-vd-Pgoqt Xfer(QC): 6 Toilet Transfer (QC): 6 Does the Patient Walk: Yes Walk 10 feet (QC): 6 Walk 50ft with 2 Turns (QC): 6 Walk 150 ft (QC): 6 PT Plan Problem List Problem List: Activity Tolerance, Functional Strength, Safety, Balance, Gait, Transfer, Bed Mobility Treatment/Plan Treatment Plan: Continue Plan of Care Treatment Plan: Bed Mobility, Education, Functional Activity Lang, Functional Strength, Gait, Safety, Therapeutic Exercise, Transfers Treatment Duration: Jan 16, 2021 Frequency: 6 times per week Estimated Hrs Per Day: .25 hour per day Patient and/or Family Agrees t: Yes Time/GCodes Time In: 810 Time Out: 826 Total Billed Treatment Time: 16 Total Billed Treatment 1 visit EVModC 16 min RICK ROSS PT Jan 05, 2021 09:24
[2021-01-05] MEDS ORDERED: CLOPIDOGREL 75 MG (PLAVIX) TABLET PO ONE (10:00)
[2021-01-05] MEDS ORDERED: ASPIRIN 81 MG CHEW (CHILDREN'S ASA) PO ONE (10:00)
[2021-01-05] MEDS ORDERED: MONT10TA32 PO (12:30)
[2021-01-05] MEDS ORDERED: ASPI-999 PO (12:30)
[2021-01-05] MEDS ORDERED: MTP25TSR PO (12:30)
[2021-01-05] MEDS ORDERED: METF-478 PO (12:30)
[2021-01-05] MEDS ORDERED: POTA10TA36 PO (12:30)
[2021-01-05] MEDS ORDERED: FURO40TA4 PO (12:30)
[2021-01-05] MEDS ORDERED: PREG225C7 PO (12:30)
[2021-01-05] MEDS ORDERED: NF-ESOM40C PO (12:30)
[2021-01-05] MEDS ORDERED: LOSA25TA41 PO (12:30)
[2021-01-05] MEDS ORDERED: PRED5TAB PO (12:52)
[2021-01-05] MEDS ORDERED: SEMA1PEN3 SQ (12:52)
--- NOTE | 2021-01-05 14:37 | Occupational Therapy Eval ---
OT Evaluation-General/PLF Medical Diagnosis Admission Date Jan 04, 2021 at 22:36 Medical Diagnosis: CHF exacerbation Onset Date: Jan 04, 2021 Therapy Diagnosis Therapy Diagnosis: Weakness, Decreased ADL skills Precautions Precautions/Isolations: Fall Prevention, Standard Precautions Weight Bear Status Weight Bearing Restriction: Weight Bearing/Tolerated Referral Physician: Oj Referral Reason: Activity Tolerance, Self Care, Evaluation/Treatment, Strengthening/ROM Medical History Pertinent Medical History: CAD, COPD (6-8L continuous at home), CVA, DM, HTN, Neuropathy, Smoking Social History Home: Apartment Current Living Status: Alone (Children live close) Entry Into Home: Level Entry ADL-Prior Level of Function SCALE: Activities may be completed with or without assistive devices. 1-Zzscpebebm-dnedyli completes the activity by him/herself with no assistance from a helper. 5-Set-up or Clean-up Assistance-helper sets up or cleans up; patient completes activity. [place] assists only prior to or following the activity. 4-Supervision or Touching Assistance-helper provides verbal cues and/or touching/steadying and/or contact guard assistance as patient completes activity. Assistance may be provided throughout the activity or intermittently. 3-Partial/Moderate Assistance-helper does LESS THAN HALF the effort. [place] lifts, holds or supports trunk or limbs, but provides less than half the effort. 2-Substantial/Maximal Assistance-helper does MORE THAN HALF the effort. [place] lifts or holds trunk or limbs and provides more than half the effort. 1-Namebwhwm-hekntx does ALL the effort. Patient does none of the effort to complete the activity. Or, the assistance of 2 or more helpers is required for the patient to complete the activity. If activity was not attempted, code reason: 7-Patient Refused. 9-Not Applicable-not attempted and the patient did not perform the activity be fore the current illness, exacerbation or injury. 10-Not Attempted due to Environmental Limitations-(lack of equipment, weather restraints, etc.). 88-Not Attempted due to Medical Conditions or Safety Concerns. ADL PLOF Comments Pt. states that she has a walker but does not use it much at home. Her daughters live close and cans assist. She has daily assistance from a caregiver that assists with showering and dressing, cooking and cleaning. Self Care: Needed Some Help Functional Cognition: Independent DME/Equipment: Bath Chair, Tub/Shower OT Current Status Subjective No pain reported. Mental Status/Objective Patient Orientation: Person, Place, Time, Situation Current Glasses/Contacts: Yes Upper Extremity ROM WFL ADL-Treatment Eating (QC): 6 On/Off Footwear (QC): 3 (Pt. requires assistance to don socks, but is able to don slippers. She has a sock aide at home but does not wear socks often.) Other Treatments Pt. up in chair. Pt. able to stand from chair with SBA, with no LOB. States that she doesn't want to get dizzy. Sits after a minute. Pt. able to don slippers but not her socks. Reports that she does have some difficulty with cleansing rear kenn area, and so OT issued toilet tongs and educated her on use of them. Pt. reports no difficulty with eating. Pt. up working on small 5-D ela puzzle with good fine motor skills during OT conversation. All needs met up in chair. Education OT Patient Education: Correct positioning, Modified ADL techniques, Progress toward Goal/Update tx plan, Purpose of tx/functional activities, Reviewed precautions, Rehab process, Transfer techniques Teaching Recipient: Patient Teaching Methods: Demonstration, Discussion Response to Teaching: Verbalize Understanding, Return Demonstration OT Nursing Home Goals Master Tax Advisor Goals Time Frame: Jan 12, 2021 Eating (QC): 6 Oral Hygiene (QC): 6 Toileting Hygiene (QC): 6 On/Off Footwear (QC): 4 (with AE) Additional Goals: 1-Demonstrate ADL Tasks, 2-Verbalize Understanding, 3- ImproveStrength/Lang 1=Demonstrate adherence to instructed precautions during ADL tasks. 2=Patient will verbalize/demonstrate understanding of assistive devices/mo difications for ADL. 3=Patient will improve strength/tolerance for activity to enable patient to perform ADL's. OT Education/Plan Problem List/Assessment Assessment: Decreased Activ Tolerance, Impaired I ADL's, Impaired Self-Care Skills Discharge Recommendations Plan/Recommendations: Continue POC Therapy Discharge Recommendati: Home & Family Treatment Plan/Plan of Care Treatment,Training & Education: Yes Patient would benefit from OT for education, treatment and training to promote independence in ADL's, mobility, safety and/or upper extremity function for ADL's. Plan of Care: ADL Retraining, Functional Mobility, UE Funct Exercise/Act Treatment Duration: Jan 12, 2021 Frequency: 5 times per week Estimated Hrs Per Day: .25 hour per day Agreement: Yes Rehab Potential: Fair Time/GCodes Start Time: 13:05 Stop Time: 13:30 Total Time Billed (hr/min): 25 Billed Treatment Time 1, EVM x 10minutes, FA x 15minutes WARD HARKINS OT Jan 05, 2021 14:37
[2021-01-05] MEDS ORDERED: ENOXAPARIN 100 MG/1 ML (LOVENOX) SYR SC SCH (16:30)
[2021-01-05] MEDS ORDERED: RT-ALBUTEROL SULF 2.5 MG/3 ML PRE-MIX VIAL INH PRN (16:30)
[2021-01-05] MEDS ORDERED: RT-ALBUTEROL SULF 2.5 MG/3 ML PRE-MIX VIAL IH PRN (16:30)
[2021-01-05] MEDS: DICLOFENAC 1% GEL 100 GM (VOLTAREN) TUBE TP PRN ×2 (17:06→20:52)
[2021-01-05] MEDS ORDERED: HOLD METFORMIN - RECEIVED CONTRAST 20 ML VIAL IV SCH (17:45)
[2021-01-05] MEDS ORDERED: NS 100 ML (IVPB) BAG IV ONE (17:45)
[2021-01-05] MEDS ORDERED: IOHEXOL 350 MG/ML 100 ML (OMNIPAQUE 350) VIAL IV ONE (17:45)
[2021-01-05] MEDS: ENOXAPARIN 300 MG/3 ML (LOVENOX) MULTI-DOSE VIAL SQ SCH (18:14)
--- NOTE | 2021-01-05 19:09 | Consultation-Cardiology ---
HPI-Cardiology Cardiology Consultation: Date of Consultation 01/05/21 Time Seen by a Provider: 18:15 Date of Admission Attending Physician Charisse Mcwilliams MD Admitting Physician Edmond Heath DO Consulting Physician HARPER GORDON MD, MA, FACP, FACC, FSCAI, CCDS Physician requesting consult: Dr Mcwilliams HPI: Chief Complaint: Reason for Cardiology consultation: CHF HPI Ms. Mills is a 55 yr old female admitted to ICU 8 from the ED with c/o increasing SOB, dizziness and non-syncopal fall. She reports [facility] [place] [facility]. She states on Monday she had gotten up to use the BR, she uses a walker, she states she felt dizzy and fell. She states the dizziness persisted through the weekend. She reports yesterday she again fell at home. She does not report any syncope or near syncope. She reports increasing SOB over the last few days as well. No c/o CP, palpitations or LE swelling. No c/o n/v/d. No c/o fever or chills. Review of Systems-Cardiology Review of Systems Constitutional: No chills, No fever; lightheadedness Eyes: No vision change Ears/Nose/Throat: No epistaxis, No recent hearing loss Respiratory: As described under HPI Cardiovascular: As described under HPI Gastrointestinal: No constipation, No diarrhea, No nausea, No vomiting Genitourinary: No dysuria, No hematuria Skin: No rash on exposed areas, No ulcerations on exposed areas Psychiatric/Neurological: No anxiety, No depression, No seizure, No focal weakness, No syncope Hematologic: No bleeding abnormalities IAL-Tsddll-Rfspyu Hx Patient Social History Smoking Status: Former Smoker 2nd Hand Smoke Exposure: Yes Have you traveled recently?: No Alcohol Use?: No Pt feels they are or have been: No Immunizations Up To Date Tetanus Booster (TDap): Unknown Date of Influenza Vaccine: Apr 09, 2019 Past Medical History PMH As described under Assessment. Family Medical History Family Medical History: She reports her father had CAD. She reports a brother recently passed with following an IL. Allergies and Home Medications Allergies Coded Allergies: lisinopril (Verified Allergy, Unknown, 05/24/19) metformin (Verified Allergy, Unknown, 07/31/19) saxagliptin (Verified Allergy, Unknown, 07/31/19) simvastatin (Verified Allergy, Unknown, weakness, 05/24/19) Home Medications Acetaminophen 500 Mg Tablet, 1,000 MG PO BID PRN for PAIN-MILD (1-4), (Reported) Last Action: Reviewed Albuterol Sulfate 2.5 Mg/0.5 Ml Vial.neb, 2.5 MG INH Q6H PRN for SHORTNESS OF BREATH, (Reported) Last Action: Continued Albuterol Sulfate 1 Puff Puff, 2 PUFF IH Q6H PRN for SHORTNESS OF BREATH, (Reported) Last Action: Continued Aspirin 81 Mg Tab.chew, 81 MG PO HS, (Reported) Last Action: Reviewed Atorvastatin Calcium 80 Mg Tablet, 80 MG PO HS, (Reported) Last Action: Continued Budesonide/Formoterol Fumarate 10.2 Gm Hfa.aer.ad, 2 PUFF IH BID, (Reported) Last Action: Converted Cetirizine HCl 10 Mg Tab.chew, 10 MG PO DAILY, (Reported) Last Action: Converted Clopidogrel Bisulfate 75 Mg Tablet, 75 MG PO HS, (Reported) Last Action: Continued Diclofenac Sodium 100 Gm Gel..gram., 4 GM TP QID PRN for INFLAMMATION/PAIN, (Reported) Last Action: Continued Esomeprazole Magnesium 40 Mg Cap, 40 MG PO DAILY, (Reported) MAY OPEN CAPSULE AND SPRINKLE ON APPLESAUCE Last Action: Converted Fluticasone Propionate 9.9 Ml [place].susp, 2 SPRAY NS DAILY PRN for CONGESTION, (Reported) Last Action: Held Furosemide 40 Mg Tablet, 40 MG PO DAILY, (Reported) Last Action: Continued Insulin Aspart 100 Unit/1 Ml Susp, 30 UNIT SQ AC, (Reported) Last Action: Held Insulin Glargine,Hum.rec.anlog 100 Unit/1 Ml Vial, 110 UNIT SQ HS, (Reported) Last Action: Held Losartan Potassium 25 Mg Tablet, 25 MG PO HS, (Reported) Last Action: Continued Metformin HCl 500 Mg Tab.er.24, 1,000 MG PO BID, (Reported) TAKES 2 (500MG) TABS Last Action: Held Metoprolol Succinate 25 Mg Tab.er.24h, 25 MG PO DAILY, (Reported) Last Action: Continued Montelukast Sodium 10 Mg Tablet, 10 MG PO HS, (Reported) Last Action: Continued Potassium Chloride 10 Meq Tab.er.prt, 20 MEQ PO DAILY, (Reported) TAKES 2 (10MEQ) TABS Last Action: Converted Prednisone 5 Mg Tablet, MG PO DAILY, (Reported) TAPER DIRECTIONS: 6 TABS ON DAY 1 AND DECREASE BY 1 TAB EACH DAY UNTIL FINISHED (6,5,4,3,2,1) Last Action: Held Pregabalin 225 Mg Capsule, 225 MG PO BID, (Reported) Last Action: Converted Ropinirole HCl 1 Mg Tablet, 1 MG PO BID, (Reported) Last Action: Continued Semaglutide 1 Mg/0.75 Ml Pen.injctr, 1 MG SQ MON, (Reported) Last Action: Held Patient Home Medication List Home Medication List Reviewed: Yes Physical Exam-Cardiology Physical Exam Vital Signs/I&O 01/05/21 01/05/21 01/05/21 01/05/21 07:47 08:00 08:00 09:00 Temp 35.1 Pulse 69 73 Resp 19 13 B/P (MAP) 169/77 (107) 154/109 (124) Pulse Ox 91 91 93 O2 Delivery Nasal Cannula High Flow N/C High Flow N/C O2 Flow Rate 10.00 10.00 10.00 01/05/21 01/05/21 01/05/21 01/05/21 10:00 10:14 11:41 15:33 Temp 35.5 Pulse 83 70 Resp 14 19 B/P (MAP) 147/97 (114) 135/63 (87) Pulse Ox 94 95 92 91 O2 Delivery High Flow N/C High Flow N/C High Flow N/C Nasal Cannula O2 Flow Rate 10.00 10.00 6.00 8.00 01/05/21 16:00 Temp 36.3 Pulse 75 Resp 20 B/P (MAP) 180/82 (114) Pulse Ox 91 O2 Delivery High Flow N/C O2 Flow Rate 8.00 Capillary Refill : Less Than 3 Seconds Constitutional: AAO x 3, well-developed, well-nourished HEENT: PERRL, hearing is well preserved, oral hygience is good Neck: No carotid bruit; carotid pulses are 2 + bilaterally Respiratory: No accessory muscle use, No respiratory distress; chest expansion is symmetric, chest is bilaterally symmetric, other (diminished lower lobes bilat; prolonged exp phase) Cardiovascular: regular rate-rhythm; No JVD; tachycardia Gastrointestinal: No tender; soft, round, audible bowel sounds Extremities: no lower extremity edema bilateral Neurologic/Psychiatric: grossly intact (moves all extremities) Skin: No rash on exposed areas, No ulcerations on exposed areas Data Review Labs Laboratory Tests 01/05/21 03:44: White Blood Count 6.0, Red Blood Count 4.18, Hemoglobin 11.8, Hematocrit 37, Mean Corpuscular Volume 89, Mean Corpuscular Hemoglobin 28, Mean Corpuscular Hemoglobin Concent 32, Red Cell Distribution Width 17.2H, Platelet Count 98L, Mean Platelet Volume 12.8H, Immature Granulocyte % (Auto) 0, Neutrophils (%) (Auto) 63, Lymphocytes (%) (Auto) 28, Monocytes (%) (Auto) 9, Eosinophils (%) (Auto) 0, Basophils (%) (Auto) 0, Neutrophils # (Auto) 3.8, Lymphocytes # (Auto) 1.7, Monocytes # (Auto) 0.5, Eosinophils # (Auto) 0.0, Basophils # (Auto) 0.0, Immature Granulocyte # (Auto) 0.0, Sodium Level 141, Potassium Level 4.2, Chloride Level 107, Carbon Dioxide Level 19L, Anion Gap 15H, Blood Urea Nitrogen 31H, Creatinine 1.29, Estimat Glomerular Filtration Rate 43, BUN/Creatinine Ratio 24, Glucose Level 214H, Calcium Level 8.8, Corrected Calcium 9.2, Phosphorus Level 3.9, Magnesium Level 1.3L, Total Bilirubin 0.5, Aspartate Amino Transf (AST/SGOT) 27, Alanine Aminotransferase (ALT/SGPT) 25, Alkaline Phosphatase 121, Total Protein 6.9, Albumin 3.5 01/05/21 10:58: Glucometer 186H 01/05/21 15:30: D-Dimer 2.10H 01/05/21 15:42: Glucometer 266H A/P-Cardiology Assessment/Admission Diagnosis Shortness of breath likely due to pulmonary embolism and/or obesity- hypoventilation and GAVI - Echo on 01/05/21: Right heart enlargement with evidence of pressure and volume overload, PASP 75-80 mmHg, LVEF 50-55%, a small pericardial effusion that does not appear to be hemodynamically significant Cardiac cath of 07-31-[address] Lanier showed mild non-obstructive dz with mildly elevated LVEDP Dizziness of undetermined etiology - possibly secondary to medications (reports started after starting Toprol XL) Non-syncopal fall on Monday Acute on chronic exacerbation of COPD - oxygen-dependent Tobaccoism - stopped 2 weeks ago DM HLD HTN H/O CVA approx 4 yrs ago H/O R CEA 4 yrs ago at the [facility] [place] P[facility] - h/o kissing stents bilat LE - details unknown - done approx 4 yrs ago at the [facility] in [place] - reports had f/u with the [facility] in [place] last week for f/u u/s on legs and neck - reports everything was "good" Peripheral neuropathy H/O left-sided vocal cord paralysis - details unknown H/O cholecystectomy Elevated BMI approx 47 Hypomagnesemia Discussion and Recomendations I discussed her case with Dr Mcwilliams. We advise w/u for pum embolism. Meanwhile treat with anticoag if no contraindications Advised sleep apnea eval and treatment, if needed Acute on chronic exacerbation of COPD - management per Medical services Replace electrolytes Dizziness of undetermined etiology possibly d/t medications - hold ARB and BB for now Monitor lab closely HARPER GORDON MD FACP FACC CCDS Jan 05, 2021 19:09
[2021-01-05] MEDS: MONTELUKAST 10 MG (SINGULAIR) TAB PO SCH (20:33)
[2021-01-05] MEDS: CLOPIDOGREL 75 MG (PLAVIX) TABLET PO SCH (20:34)
[2021-01-05] MEDS: LOSARTAN 25 MG (COZAAR) TAB PO SCH (20:34)
[2021-01-05] MEDS: PREGABALIN 75 MG (LYRICA) CAP PO SCH (20:34)
[2021-01-05] MEDS: rOPINIRole 1 MG (REQUIP) TABLET PO SCH (20:34)
[2021-01-05] MEDS ORDERED: PREGABALIN 225 MG PO SCH (21:00)
[2021-01-05] MEDS ORDERED: NON-FORMULARY MEDICATION 1 EA EA (Budesonide/Formoterol Fumarate (Symbicort 160-4.5 Mcg In IH SCH (21:00)
[2021-01-05] MEDS: RT--FLUTICASONE/SALMETEROL 232-14 (AIRDUO RespiCLICK) IH SCH (22:04)
[2021-01-06] MEDS: RT-ALBUTEROL/IPRATROPIUM 3 ML (DUONEB) VIAL INH SCH ×4 (02:41→20:08)
[2021-01-06 05:44] LABS: BASOPHILS % (AUTO) 0 % (0-10); EOSINOPHILS % (AUTO) 0 % (0-10); MONOCYTES # (AUTO) 0.5 10^3/uL (0.0-1.0)
[2021-01-06 05:46] LABS: HEMATOCRIT 35 % (35-52); LYMPHOCYTES # (AUTO) 1.1 10^3/uL (1.0-4.0); LYMPHOCYTES % (AUTO) 20 % (12-44); MEAN CORPUSCULAR HEMOGLOBIN 28 pg (25-34); MEAN CORPUSCULAR HGB CONC 31 g/dL (32-36); MEAN CORPUSCULAR VOLUME 90 fL (80-99); MEAN PLATELET VOLUME 12.8 fL (9.0-12.2); MONOCYTES % (AUTO) 9 % (0-12); NEUTROPHILS # (AUTO) 4.1 10^3/uL (1.8-7.8); NEUTROPHILS % (AUTO) 71 % (42-75); PLATELET COUNT 101 10^3/uL (130-400); WHITE BLOOD COUNT 5.7 10^3/uL (4.3-11.0)
[2021-01-06 05:56] LABS: POTASSIUM 3.2 MMOL/L (3.6-5.0)
[2021-01-06 05:58] LABS: CALCIUM 9.1 MG/DL (8.5-10.1)
[2021-01-06 06:02] LABS: CREATININE SERUM 1.2 MG/DL (0.60-1.30); PHOSPHORUS 4.1 MG/DL (2.3-4.7)
[2021-01-06 06:04] LABS: MAGNESIUM 1.8 MG/DL (1.6-2.4)
[2021-01-06] MEDS: MAGNESIUM 1 GM/100 ML IVPB 100 ML IV SCH (06:13)
[2021-01-06] MEDS: KCL 20 MEQ TAB (K-DUR) PO SCH ×3 (06:21→08:19)
[2021-01-06] MEDS: CATHETER FLUSH 10 ML SYR IV SCH ×3 (06:25→20:23)
[2021-01-06] MEDS: ENOXAPARIN 300 MG/3 ML (LOVENOX) MULTI-DOSE VIAL SQ SCH (06:25)
[2021-01-06] MEDS: POTASSIUM CL 10MEQ/50ML IVPB 50 ML IV SCH (06:26)
[2021-01-06] MEDS: inSUlin ASPART (NovoLOG) 1 UNIT/0.01 ML (CHARGE PER UNIT) SC SCH ×4 (06:26→19:56)
[2021-01-06] MEDS: LORATADINE (CLARITIN) 10 MG TAB PO SCH (08:18)
[2021-01-06] MEDS: PANTOPRAZOLE 40 MG (PROTONIX) TAB PO SCH (08:18)
[2021-01-06] MEDS: rOPINIRole 1 MG (REQUIP) TABLET PO SCH ×2 (08:18→20:22)
[2021-01-06] MEDS: ASPIRIN 81 MG CHEW (CHILDREN'S ASA) PO SCH (08:19)
[2021-01-06] MEDS: PREGABALIN 75 MG (LYRICA) CAP PO SCH ×2 (08:19→20:22)
[2021-01-06] MEDS: FUROSEMIDE 40 MG/4 ML INJ (LASIX) IV SCH ×2 (08:19→20:23)
[2021-01-06] MEDS: FLUTICASONE NASAL SPRAY (FLONASE) 16 GM BTL NS SCH (08:20)
[2021-01-06] MEDS: ACETAMINOPHEN 325 MG TABLET PO PRN ×2 (08:24→16:13)
[2021-01-06] MEDS ORDERED: KCL 20 MEQ TAB (K-DUR) PO ONE (08:30)
--- NOTE | 2021-01-06 08:53 | Pulmonary Consultation ---
History of Present Illness History of Present Illness Date Seen by Provider: Jan 06, 2021 Time Seen by Provider: 08:49 History of Present Illness 55 yo F asked to see fo SOB/CHF, transferred out of MICU, Was in MICU for increased oxygen requirements, now down to feels better with breathing better, no CP, only occasional cough in am Recent CXR 01/05 shows mild congestion and cardiomegaly, Currently on Airduo, nebulizers, SIngulair, also on full anticoagulation On home oxygen and prednisone at home, At home can only ambulate 50-100 feet before SOB Fell at home though was not a syncopal episode Patient has long smoking Hx up to 3 PPD, quit 2 wks ago Has had COVID vaccine D Dimer is elevated at 2.1, on Lovenox bid, to get CTA today, Cr is 1.2 Allergies and Home Medications Allergies Coded Allergies: lisinopril (Verified Allergy, Unknown, 05/24/19) metformin (Verified Allergy, Unknown, 07/31/19) saxagliptin (Verified Allergy, Unknown, 07/31/19) simvastatin (Verified Allergy, Unknown, weakness, 05/24/19) Home Medications Acetaminophen 500 Mg Tablet, 1,000 MG PO BID PRN for PAIN-MILD (1-4), (Reported) Albuterol Sulfate 2.5 Mg/0.5 Ml Vial.neb, 2.5 MG INH Q6H PRN for SHORTNESS OF BREATH, (Reported) Albuterol Sulfate 1 Puff Puff, 2 PUFF IH Q6H PRN for SHORTNESS OF BREATH, (Reported) Aspirin 81 Mg Tab.chew, 81 MG PO HS, (Reported) Atorvastatin Calcium 80 Mg Tablet, 80 MG PO HS, (Reported) Budesonide/Formoterol Fumarate 10.2 Gm Hfa.aer.ad, 2 PUFF IH BID, (Reported) Cetirizine HCl 10 Mg Tab.chew, 10 MG PO DAILY, (Reported) Clopidogrel Bisulfate 75 Mg Tablet, 75 MG PO HS, (Reported) Diclofenac Sodium 100 Gm Gel..gram., 4 GM TP QID PRN for INFLAMMATION/PAIN, (Reported) Esomeprazole Magnesium 40 Mg Cap, 40 MG PO DAILY, (Reported) MAY OPEN CAPSULE AND SPRINKLE ON APPLESAUCE Fluticasone Propionate 9.9 Ml Line [place].susp, 2 SPRAY NS DAILY PRN for CONGESTION, (Reported) Furosemide 40 Mg Tablet, 40 MG PO DAILY, (Reported) Insulin Aspart 100 Unit/1 Ml Susp, 30 UNIT SQ AC, (Reported) Insulin Glargine,Hum.rec.anlog 100 Unit/1 Ml Vial, 110 UNIT SQ HS, (Reported) Losartan Potassium 25 Mg Tablet, 25 MG PO HS, (Reported) Metformin HCl 500 Mg Tab.er.24, 1,000 MG PO BID, (Reported) TAKES 2 (500MG) TABS Metoprolol Succinate 25 Mg Tab.er.24h, 25 MG PO DAILY, (Reported) Montelukast Sodium 10 Mg Tablet, 10 MG PO HS, (Reported) Potassium Chloride 10 Meq Tab.er.prt, 20 MEQ PO DAILY, (Reported) TAKES 2 (10MEQ) TABS Prednisone 5 Mg Tablet, MG PO DAILY, (Reported) TAPER DIRECTIONS: 6 TABS ON DAY 1 AND DECREASE BY 1 TAB EACH DAY UNTIL FINISHED (6,5,4,3,2,1) Pregabalin 225 Mg Capsule, 225 MG PO BID, (Reported) Ropinirole HCl 1 Mg Tablet, 1 MG PO BID, (Reported) Semaglutide 1 Mg/0.75 Ml Pen.injctr, 1 MG SQ FRI, (Reported) Past Medical/Social/Family Hx Patient Social History Tobacco Use?: Yes Tobacco type used: Cigarettes Smoking Status: Former Smoker Substance use?: No Alcohol Use?: No Pt stated abuse/neglect: No Immunizations Up To Date Influenza Vaccine Up-to-Date: Yes; Up-to-Date First/Initial COVID19 Vaccinat: OCTOBER 2020 Second COVID19 Vaccination Justyn: SEPTEMBER 23, 2020 Current Status status: No status: No Advance Directives: No Advance Directive Location: Home Communicates: Verbally Primary Language: Moroccan Preferred Spoken Language: Moroccan Is interpretation needed?: No Past Medical History DM1, HTN, HLO, CAD with stent placement in past Review of Systems Constitutional: no symptoms reported Cardiovascular: edema Gastrointestinal: other (some abd tightness) Sepsis Event Evaluation Height, Weight, BMI Height: '" Weight: lbs. oz. kg; 46.85 BMI Method: Exam Exam Patient acknowledged, consented, and participated in this virtual visit which was conducted using real time audio/video Vital Signs Date Time Temp Pulse Resp B/P (MAP) Pulse Ox O2 Delivery O2 Flow Rate FiO2 01/06/21 08:21 144/69 (94) 01/06/21 08:00 35.6 70 20 176/71 (106) 92 High Flow N/C 8.00 01/06/21 06:35 90 01/06/21 04:30 36.1 87 18 147/71 (96) 92 High Flow N/C 8.00 01/06/21 02:41 84 Nasal Cannula 8.00 01/06/21 01:00 78 01/06/21 00:01 36.2 85 18 151/79 (103) 94 High Flow N/C 8.00 01/05/21 23:48 84 01/05/21 22:05 78 Nasal Cannula 8.00 01/05/21 19:51 36.0 73 18 141/79 (99) 96 High Flow N/C 8.00 01/05/21 16:00 36.3 75 20 180/82 (114) 91 High Flow N/C 8.00 01/05/21 15:33 91 Nasal Cannula 8.00 01/05/21 11:41 35.5 70 19 135/63 (87) 92 High Flow N/C 6.00 01/05/21 10:14 95 High Flow N/C 10.00 01/05/21 10:00 83 14 147/97 (114) 94 High Flow N/C 10.00 01/05/21 09:00 73 13 154/109 (124) 93 High Flow N/C 10.00 I & O 01/06/21 06:59 Intake Total 1870 ml Output Total 3000 ml Balance -1130 ml Height & Weight Height: '" Weight: lbs. oz. kg; 46.85 BMI Method: General Appearance: No Apparent Distress, WD/WN, Anxious, Chronically ill, Cachetic, Mild Distress, Moderate Distress, Obese, Severe Distress, Thin, Other HEENT: PERRL/EOMI, Pharynx Normal Neck: Full Range of Motion, Normal Inspection, Non Tender, Supple Respiratory: Chest Non Tender, Lungs Clear, Normal Breath Sounds, No Accessory Muscle Use, No Respiratory Distress, Accessory Muscle Use, Crackles, Decreased Breath Sounds, Expiration, Inspiration, Pleural Rub, Rales, Respiratory Distress, Rhonci, Stridor, Wheezing, Other Cardiovascular: Regular Rate, Rhythm, Normal Peripheral Pulses Capillary Refill: Less Than 3 Seconds Peripheral Pulses: 2+ Dorsalis Pedis (R), 2+ Left Dors-Pedis (L) Gastrointestinal: normal bowel sounds, non tender Extremity: Normal Capillary Refill, Pedal Edema (1+ BLE) Neurologic/Psychiatric: Alert, Oriented x3, harp repairer II-XII Norm as Tested Skin: Warm/Dry, Ecchymosis (bruises in various stages of healing) Lymphatic: Other Results Lab Laboratory Tests 01/04/21 16:05 01/05/21 03:44 01/06/21 05:05 Assessment/Plan Assessment/Plan Imrproving , oxcygenation needs are down, looks like both CHF/COPD, will continue on Lasix, Airduo, nebulizer, await CTA if neg would stop bid Lovenox Time spent with patient (mins): 20 DAMON WEAVER MD Jan 06, 2021 08:53
[2021-01-06] MEDS ORDERED: NON-FORMULARY MEDICATION 1 EA EA (Potassium Chloride 20 MEQ) PO SCH (09:00)
[2021-01-06] MEDS ORDERED: CLOPIDOGREL 75 MG (PLAVIX) TABLET PO SCH (09:00)
[2021-01-06] MEDS ORDERED: NON-FORMULARY MEDICATION 1 EA EA (Esomeprazole Magnesium (Nexium) 40 MG) PO SCH (09:00)
[2021-01-06] MEDS ORDERED: FUROSEMIDE 40 MG (LASIX) TAB PO SCH (09:00)
[2021-01-06] MEDS ORDERED: NON-FORMULARY MEDICATION 1 EA EA (Cetirizine HCl 10 MG) PO SCH (09:00)
--- NOTE | 2021-01-06 09:43 | Physical Therapy Daily Note ---
PT Daily Note-Current Subjective Patient in bed pre tx, agrees to PT but states she has pain "all over". Pain is unrated. Appearance Patient in bed post tx with nurse call, phone, tray, all needs met. Mental Status Patient Orientation: Person, Place, Situation Attachments: Oxygen Transfers SCALE: Activities may be completed with or without assistive devices. 1-Xhykpvzqkl-dvzdnqk completes the activity by him/herself with no assistance from a helper. 5-Set-up or Clean-up Assistance-helper sets up or cleans up; patient completes activity. [place] assists only prior to or following the activity. 4-Supervision or Touching Assistance-helper provides verbal cues and/or touching/steadying and/or contact guard assistance as patient completes a ctivity. Assistance may be provided throughout the activity or intermittently. 3-Partial/Moderate Assistance-helper does LESS THAN HALF the effort. [place] lifts, holds or supports trunk or limbs, but provides less than half the effort. 2-Substantial/Maximal Assistance-helper does MORE THAN HALF the effort. [place] lifts or holds trunk or limbs and provides more than half the effort. 9-Bfajyabug-ayoapr does ALL the effort. Patient does none of the effort to complete the activity. Or, the assistance of 2 or more helpers is required for the patient to complete the activity. If activity was not attempted, code reason: 7-Patient Refused. 9-Not Applicable-not attempted and the patient did not perform the activity before the current illness, exacerbation or injury. 10-Not Attempted due to Environmental Limitations-(lack of equipment, weather restraints, etc.). 88-Not Attempted due to Medical Conditions or Safety Concerns. Roll Left & Right (QC): 6 Sit to Lying (QC): 6 Lying to Sitting/Side of Bed(Q: 6 Sit to Stand (QC): 4 Chair/Wwx-dk-Evati Xfer(QC): 4 SBA Gait Training Distance: 40' Walk 10 feet (QC): 4 Gait Persons Needed: 1 Gait Assistive Device: FWW SBA, slow ambulation, antalgic, but no LOB or unsteadiness Exercises Seated Therapy Exercises: Ankle pumps, Long arc quads Seated Reps: 20 Treatments bed mobility and transfers, ambulation, LE strengthening Assessment Current Status: Fair Progress slightly improved endurance PT Saw Feeder Goals Residential Goals PT Saw Feeder Goals Time Frame: Jan 16, 2021 Roll Left & Right (QC): 6 Sit to Lying (QC): 6 Lying-Sitting on Side/Bed(QC): 6 Sit to Stand (QC): 6 Chair/Xsq-sz-Llktw Xfer(QC): 6 Toilet Transfer (QC): 6 Does the Patient Walk: Yes Walk 10 feet (QC): 6 Walk 50ft with 2 Turns (QC): 6 Walk 150 ft (QC): 6 PT Plan Problem List Problem List: Activity Tolerance, Functional Strength, Safety, Balance, Gait, Transfer, Bed Mobility, ROM Treatment/Plan Treatment Plan: Continue Plan of Care Treatment Plan: Bed Mobility, Education, Functional Activity Lang, Functional Strength, Gait, Safety, Therapeutic Exercise, Transfers Treatment Duration: Jan 16, 2021 Frequency: 6 times per week Estimated Hrs Per Day: .25 hour per day Patient and/or Family Agrees t: Yes Safety Risks/Education Patient Education: Gait Training, Transfer Techniques, Correct Positioning, Safety Issues Teaching Recipient: Patient Teaching Methods: Demonstration, Discussion Response to Teaching: Reinforcement Needed Time/GCodes Time In: 915 Time Out: 925 Total Billed Treatment Time: 10 Total Billed Treatment 1 visit FA FLOR CATHERINE PT Jan 06, 2021 09:43
[2021-01-06] MEDS: RT--FLUTICASONE/SALMETEROL 232-14 (AIRDUO RespiCLICK) IH SCH ×2 (10:09→20:10)
--- NOTE | 2021-01-06 10:33 | Progress Note - Hospitalist ---
Subjective HPI/CC On Admission Date Seen by Provider: Jan 06, 2021 Time Seen by Provider: 10:27 Ms Mills is a 55yoCF with a PMH of oxygen dependent COPD, HTN IDDMII, CAD, peripheral neuropathy, HLD who presented to the ER due to weakness and falls. She reports that she has not been feeling well for a few days and had a couple of falls. She was able to get up with the help of her family and caretakers but her daughter insisted she come to the ER. She was found to be hypoxic at 84% on her baseline 8 lpm on arrival to the ER. Her BNP was over 6k and her chest x-ray indicated pulm vascular congestion. She required 15lpm HFNC to maintain oxygen saturations. She was admitted to the ICU due to her high oxygen requirements. This morning she states she is breathing better and she is down to 10lpm. She is requesting resuming her home prednisone dose. Subjective/Events-last exam Pt reports doing well today. Down to her normal 8lpm. Did desat some overnight and requesting another sleep study. Advised her that this needs to be done as an outpatient and to ask her PCP. She otherwise has no complaints. We discussed plan for CTA today to rule out PE. She reports she has had multipe CTs and echos in the past and knows she has a nodules for over 2 years now and that her "right heart always looks big." Still agreeable to CTA though. Focused Exam Time of Focused Exam: 21:00 Objective Exam Vital Signs Vital Signs Date Time Temp Pulse Resp B/P (MAP) Pulse Ox O2 Delivery O2 Flow Rate FiO2 01/06/21 08:21 144/69 (94) 01/06/21 08:00 Nasal Cannula 8.00 01/06/21 08:00 35.6 70 20 92 01/04/21 16:15 92 Capillary Refill : Less Than 3 Seconds General Appearance: No Apparent Distress, WD/WN Respiratory: Lungs Clear, No Accessory Muscle Use, Other (on 8lpm ) Cardiovascular: Regular Rate, Rhythm, No Murmur Neurologic/Psychiatric: Alert, Oriented x3 Results/Procedures Lab Laboratory Tests 01/06/21 05:05 Patient resulted labs reviewed. Assessment/Plan Assessment and Plan Assess & Plan/Chief Complaint Acute on Chronic Respiratory Failure due to decompensated CHF Labs and CXR consistent with CHF exacerbation Echo shows some right heart failure, CTA ordered to rule out PE Pt reports findings are long standing Continues to improve with lasix Cardiology consulted, appreciate recs Monitor I/Os Oxygen dependent COPD Wears 8lpm at baseline TeleICU consulted, will continue pulm consult when out of ICU Continue home meds Continue 5mg prednisone IDDMII Continue home meds as able but reports she takes 110U of Levemir at night, only slightly hyperglycemic this morning though with just SSI so will continue that but increase to B BS 200 this AM SSI HTN HLD No acute needs, continue home meds Hypomagnesemia Replaced per protocol Debility and falls PT/OT DVT ppx: Lovenox, therapeutic until PE ruled out Critical Care Critically Ill Patient IVETTE PARKS MD Jan 06, 2021 10:33
[2021-01-06] MEDS ORDERED: HOLD METFORMIN - RECEIVED CONTRAST 20 ML VIAL IV SCH (11:00)
[2021-01-06] MEDS ORDERED: IOHEXOL 350 MG/ML 100 ML (OMNIPAQUE 350) VIAL IV ONE (11:00)
--- NOTE | 2021-01-06 11:51 | Occ Therapy Progress Note ---
Therapy Progress Note Pt. in bed this date. Wakes up and states that she will be getting a CT scan for her lungs. Would like to rest until then. Pt. states that she has been getting self back and forth from chair to bed. Reports no issues that warrant further ADL training, as she uses a sock aide at home and is limited with activity at home. Pt. has been issued toilet tongs and reports no issues at this time. States that she is feeling better, and is hoping to discharge tomorrow. No further needs at this time. 1038 1, visit WARD HARKINS OT Jan 06, 2021 11:51
--- NOTE | 2021-01-06 12:48 | Diagnostic Imaging Report ---
EXAMINATION: CT angiography of the chest. TECHNIQUE: Contrast enhanced thin section helical images were obtained through the chest with intravenous contrast timed for the optimal opacification of the arterial structures per CTA protocol. Post-processing, reconstructions and interpretation of angiographic images of the vessels was performed. 3D MIP reconstructions were performed and reviewed. All CT scans use one or more of the following dose optimizing techniques: automated exposure control, MA and/or KvP adjustment based on a patient size and exam type, or iterative reconstruction. HISTORY: Heart failure, pulmonary embolism. COMPARISON: 09/16/2019 FINDINGS: There is no pulmonary embolism. There is moderate interstitial pulmonary edema. No pleural effusion. No pneumothorax. No suspicious nodules. There is no axillary or supraclavicular lymphadenopathy. Mildly enlarged mediastinal lymph nodes may be reactive to pulmonary edema. They are slightly smaller than prior exam. Heart is enlarged. There are mild coronary artery calcifications. There is a small pericardial effusion. Aorta is normal in caliber. Limited views of the upper abdomen are unremarkable. There are no suspicious osseous lesions. IMPRESSION: 1. Moderate interstitial edema. No pulmonary embolism. Dictated by: Dictated on workstation # [id number]
--- NOTE | 2021-01-06 14:37 | Cardiology Progress Note ---
Progress Note-Cardiology Events since last exam Date Seen by Provider: Jan 06, 2021 Time Seen by Provider: 14:32 Events since last exam We are seeing her due to heart failure. Her breathing is gradually improving. She denies chest discomfort, palpitations, recurrent syncope, or ankle edema. She is thinking of continuing her cardiac care with our office here in [place] as opposed to going to the [place]. Vitals Last set of Vitals Signs Vital Signs 01/04/21 01/06/21 16:15 12:33 Temp 35.5 Pulse 79 Resp 22 B/P (MAP) 164/78 (106) Pulse Ox 91 O2 Delivery High Flow N/C O2 Flow Rate 8.00 FiO2 92 Labs Labs Laboratory Tests 01/06/21 05:05 Exam Vital Signs Vital Signs Date Time Temp Pulse Resp B/P (MAP) Pulse Ox O2 Delivery O2 Flow Rate FiO2 01/06/21 12:33 35.5 79 22 164/78 (106) 91 High Flow N/C 8.00 01/04/21 16:15 92 Physical Exam General: Alert. No acute distress. She is morbidly obese. She is wearing oxygen by nasal cannula. Eye: No xanthelasma. HENT: Normocephalic. Neck: Jugular venous pressure does not appear elevated. Respiratory: Lungs are clear to auscultation. Respirations are non-labored. Breath sounds are equal. Symmetrical chest wall expansion. Cardiovascular: Normal rate. Regular rhythm. No murmur. No gallop. No edema. Gastrointestinal: Soft. Normal bowel sounds. Skin: Warm. Dry. Neurologic: Alert and oriented to person, place, time. Cranial nerves 3-11 grossly intact. Psychiatric: Cooperative. Appropriate mood & affect. Labs Laboratory Tests 01/05/21 15:30: D-Dimer 2.10H 01/05/21 15:42: Glucometer 266H 01/05/21 20:06: Glucometer 232H 01/06/21 05:05: White Blood Count 5.7, Red Blood Count 3.90, Hemoglobin 11.0L, Hematocrit 35, Mean Corpuscular Volume 90, Mean Corpuscular Hemoglobin 28, Mean Corpuscular Hemoglobin Concent 31L, Red Cell Distribution Width 17.1H, Platelet Count 101L, Mean Platelet Volume 12.8H, Immature Granulocyte % (Auto) 0, Neutrophils (%) (Au to) 71, Lymphocytes (%) (Auto) 20, Monocytes (%) (Auto) 9, Eosinophils (%) (Auto) 0, Basophils (%) (Auto) 0, Neutrophils # (Auto) 4.1, Lymphocytes # (Auto) 1.1, Monocytes # (Auto) 0.5, Eosinophils # (Auto) 0.0, Basophils # (Auto) 0.0, Immature Granulocyte # (Auto) 0.0, Percent Immature Platelet Fraction 9.9H, Sodium Level 143, Potassium Level 3.2L, Chloride Level 105, Carbon Dioxide Level 24, Anion Gap 14, Blood Urea Nitrogen 28H, Creatinine 1.20, Estimat Glomerular Filtration Rate 47, BUN/Creatinine Ratio 23, Glucose Level 200H, Calcium Level 9.1, Phosphorus Level 4.1, Magnesium Level 1.8 01/06/21 05:27: Glucometer 195H 01/06/21 11:18: Glucometer 246H Microbiology 01/04/21 MRSA Screen - Final, Complete MRSA not isolated Diagnosis/Problems Diagnosis/Problems (1) Acute on chronic diastolic heart failure Assessment & Plan: Symptomatically improving with intravenous furosemide. I will obtain a follow-up chest x-ray tomorrow. Her CT from today did show some evidence of pulmonary congestion. We will need to watch her renal function closely with the IV diuretic. There was no evidence of a pulmonary embolism on her chest CT from today. I will take the liberty of decreasing the enoxaparin dosing to prophylactic dose. (2) Essential hypertension Assessment & Plan: Blood pressures are intermittently elevated. If this persists, we may need to adjust her antihypertensive medication. However, prior to admission, she had been started on a low-dose beta-moisés and there was some concern about iatrogenic hypotension (3) Stage III chronic kidney disease Assessment & Plan: We need to monitor this closely with the intravenous furosemide. (4) Mixed hyperlipidemia Assessment & Plan: Goal LDL is less than 70. Continue statin medication (5) Pulmonary hypertension Assessment & Plan: Most likely due to her chronic obstructive pulmonary disease and morbid obesity with hypoventilation syndrome. This will need to be followed longitudinally. (6) Morbid obesity Status: Chronic Assessment & Plan: She needs to work on weight loss to help reduce the risk of additional complications related to her weight. If she cannot lose a significant amount of weight over the next 6-12 months, we may want to consider a bariatric surgical consultation. This would likely need to be coordinated through the [facility]. FATOU MEMBRENO JR, MD Jan 06, 2021 14:37
[2021-01-06] MEDS: DICLOFENAC 1% GEL 100 GM (VOLTAREN) TUBE TP PRN ×2 (16:10→20:22)
[2021-01-06] MEDS: LOSARTAN 25 MG (COZAAR) TAB PO SCH (20:22)
[2021-01-06] MEDS: MONTELUKAST 10 MG (SINGULAIR) TAB PO SCH (20:22)
[2021-01-06] MEDS: CLOPIDOGREL 75 MG (PLAVIX) TABLET PO SCH (20:23)
[2021-01-07] MEDS: RT-ALBUTEROL/IPRATROPIUM 3 ML (DUONEB) VIAL INH SCH ×2 (03:07→10:35)
[2021-01-07] MEDS: ACETAMINOPHEN 325 MG TABLET PO PRN ×2 (03:18→08:13)
[2021-01-07 06:23] LABS: EOSINOPHILS % (AUTO) 0 % (0-10); HEMOGLOBIN 11.6 g/dL (11.5-16.0)
[2021-01-07 06:25] LABS: BASOPHILS % (AUTO) 0 % (0-10); HEMATOCRIT 37 % (35-52); LYMPHOCYTES # (AUTO) 1.1 10^3/uL (1.0-4.0); LYMPHOCYTES % (AUTO) 24 % (12-44); MEAN CORPUSCULAR HEMOGLOBIN 28 pg (25-34); MEAN CORPUSCULAR HGB CONC 31 g/dL (32-36); MEAN CORPUSCULAR VOLUME 89 fL (80-99); MEAN PLATELET VOLUME 12.6 fL (9.0-12.2); MONOCYTES # (AUTO) 0.4 10^3/uL (0.0-1.0); MONOCYTES % (AUTO) 9 % (0-12); NEUTROPHILS # (AUTO) 3.1 10^3/uL (1.8-7.8); NEUTROPHILS % (AUTO) 67 % (42-75); PLATELET COUNT 111 10^3/uL (130-400); WHITE BLOOD COUNT 4.7 10^3/uL (4.3-11.0)
[2021-01-07] MEDS: inSUlin ASPART (NovoLOG) 1 UNIT/0.01 ML (CHARGE PER UNIT) SC SCH ×2 (06:35→11:46)
[2021-01-07] MEDS: CATHETER FLUSH 10 ML SYR IV SCH (06:35)
[2021-01-07 06:38] LABS: POTASSIUM 4.1 MMOL/L (3.6-5.0)
[2021-01-07 06:39] LABS: CALCIUM 9.9 MG/DL (8.5-10.1)
[2021-01-07 06:43] LABS: CREATININE SERUM 1.35 MG/DL (0.60-1.30); PHOSPHORUS 4.3 MG/DL (2.3-4.7)
[2021-01-07 06:45] LABS: MAGNESIUM 1.8 MG/DL (1.6-2.4)
[2021-01-07] MEDS: KCL 20 MEQ TAB (K-DUR) PO SCH (06:45)
[2021-01-07] MEDS: POTASSIUM CL 10MEQ/50ML IVPB 50 ML IV SCH (06:45)
[2021-01-07] MEDS: MAGNESIUM 1 GM/100 ML IVPB 100 ML IV SCH (06:46)
[2021-01-07] MEDS: FLUTICASONE NASAL SPRAY (FLONASE) 16 GM BTL NS SCH (08:06)
[2021-01-07] MEDS: FUROSEMIDE 40 MG/4 ML INJ (LASIX) IV SCH (08:09)
[2021-01-07] MEDS: PANTOPRAZOLE 40 MG (PROTONIX) TAB PO SCH (08:10)
[2021-01-07] MEDS: LORATADINE (CLARITIN) 10 MG TAB PO SCH (08:10)
[2021-01-07] MEDS: ASPIRIN 81 MG CHEW (CHILDREN'S ASA) PO SCH (08:10)
[2021-01-07] MEDS: PREGABALIN 75 MG (LYRICA) CAP PO SCH (08:10)
[2021-01-07] MEDS: rOPINIRole 1 MG (REQUIP) TABLET PO SCH (08:13)
[2021-01-07] MEDS: DICLOFENAC 1% GEL 100 GM (VOLTAREN) TUBE TP PRN (08:14)
--- NOTE | 2021-01-07 08:29 | Pulmonary Progress Note ---
Subjective Date Seen by a Provider: Jan 07, 2021 Time Seen by a Provider: 08:30 Sepsis Event Evaluation Height, Weight, BMI Height: '" Weight: lbs. oz. kg; 46.85 BMI Method: Focused Exam Time of Focused Exam: 21:00 Exam Exam Patient acknowledged, consented, and participated in this virtual visit which was conducted using real time audio/video Vital Signs Date Time Temp Pulse Resp B/P (MAP) Pulse Ox O2 Delivery O2 Flow Rate FiO2 01/07/21 07:00 72 01/07/21 03:55 36.1 73 20 156/82 (106) 91 High Flow N/C 8.00 01/07/21 03:11 96 High Flow N/C 8.00 01/07/21 01:00 83 01/06/21 23:41 35.9 82 20 117/58 (77) 91 High Flow N/C 8.00 01/06/21 20:12 96 High Flow N/C 8.00 01/06/21 20:11 High Flow N/C 8.00 01/06/21 20:00 35.7 79 20 142/69 (93) 94 High Flow N/C 8.00 01/06/21 19:45 High Flow N/C 8.00 01/06/21 19:00 71 01/06/21 15:23 36.0 71 20 144/83 (103) 91 High Flow N/C 7.00 01/06/21 15:17 93 Nasal Cannula 7.00 01/06/21 12:33 35.5 79 22 164/78 (106) 91 High Flow N/C 8.00 01/06/21 12:22 82 01/06/21 10:09 92 Nasal Cannula 8.00 01/06/21 10:09 Nasal Cannula 8.00 I & O 01/07/21 07:00 Intake Total 2330 ml Output Total 3900 ml Balance -1570 ml Height & Weight Height: '" Weight: lbs. oz. kg; 46.85 BMI Method: General Appearance: No Apparent Distress, Chronically ill, Obese HEENT: PERRL/EOMI, Moist Mucous Membranes; No Scleral Icterus (L), No Scleral Icterus (R) Neck: Normal Inspection, Supple Respiratory: Lungs Clear, No Accessory Muscle Use, Decreased Breath Sounds, Rhonci, Other (on 10lpm) Cardiovascular: Regular Rate, Rhythm, No Murmur Capillary Refill: Less Than 3 Seconds Peripheral Pulses: 2+ Dorsalis Pedis (R), 2+ Left Dors-Pedis (L) Gastrointestinal: normal bowel sounds, non tender Extremity: No Calf Tenderness, No Pedal Edema, Pedal Edema Neurologic/Psychiatric: Alert, Oriented x3, Normal Mood/Affect Skin: Warm/Dry, Ecchymosis (bruises in various stages of healing) Lymphatic: Other Results Lab Laboratory Tests 01/06/21 05:05 01/07/21 06:17 Assessment/Plan Assessment/Plan Acute hypoxemic resp failure COPD/CHF -O2 nebs home O2 6-8l/ prepare for transition to LABA/ LAMA Possible GAVI will need psg out patient to be repeated weight reduction cpap at night MARIJA GARCES MD Jan 07, 2021 08:29
[2021-01-07] MEDS ORDERED: ENOXAPARIN 40 MG/0.4 ML (LOVENOX) SYR SC SCH ×2 (09:00→21:00)
[2021-01-07] MEDS ORDERED: ENOXAPARIN 300 MG/3 ML (LOVENOX) MULTI-DOSE VIAL SQ SCH (09:00)
--- NOTE | 2021-01-07 09:29 | Diagnostic Imaging Report ---
INDICATION: CHF. Time of exam: 8:37 AM Comparison is made with prior chest from 01/05/2021. The heart is enlarged but stable. No infiltrate or failure is detected. No effusion or pneumothorax is detected. IMPRESSION: Cardiomegaly. No acute feature is detected. Dictated by: Dictated on workstation # [id number]
[2021-01-07] MEDS ORDERED: FURO40TA4 PO (10:00)
--- NOTE | 2021-01-07 10:04 | Discharge Summary ---
Diagnosis/Chief Complaint Date of Admission Jan 04, 2021 at 22:36 Date of Discharge Discharge Date: Jan 07, 2021 Admission Diagnosis Acute on Chronic Respiratory Failure due to decompensated CHF Primary Care Nara Lara [facility] Discharge Diagnosis (1) Acute on chronic diastolic heart failure Assessment & Plan: Symptomatically improving with intravenous furosemide. I will obtain a follow-up chest x-ray tomorrow. Her CT from today did show some evidence of pulmonary congestion. We will need to watch her renal function closely with the IV diuretic. There was no evidence of a pulmonary embolism on her chest CT from today. I will take the liberty of decreasing the enoxaparin dosing to prophylactic dose. (2) Essential hypertension Assessment & Plan: Blood pressures are intermittently elevated. If this persists, we may need to adjust her antihypertensive medication. However, prior to admission, she had been started on a low-dose beta-moisés and there was some concern about iatrogenic hypotension (3) Stage III chronic kidney disease Assessment & Plan: We need to monitor this closely with the intravenous furosemide. (4) Mixed hyperlipidemia Assessment & Plan: Goal LDL is less than 70. Continue statin medication (5) Pulmonary hypertension Assessment & Plan: Most likely due to her chronic obstructive pulmonary disease and morbid obesity with hypoventilation syndrome. This will need to be followed longitudinally. (6) Morbid obesity Status: Chronic Assessment & Plan: She needs to work on weight loss to help reduce the risk of additional complications related to her weight. If she cannot lose a significan t amount of weight over the next 6-12 months, we may want to consider a bariatric surgical consultation. This would likely need to be coordinated through the [facility]. Discharge Summary Discharge Physical Exam Allergies: Coded Allergies: lisinopril (Verified Allergy, Unknown, 05/24/19) metformin (Verified Allergy, Unknown, 07/31/19) saxagliptin (Verified Allergy, Unknown, 07/31/19) simvastatin (Verified Allergy, Unknown, weakness, 05/24/19) Vitals & I&Os Vital Signs Date Time Temp Pulse Resp B/P (MAP) Pulse Ox O2 Delivery O2 Flow Rate FiO2 01/07/21 13:10 35.9 76 20 136/63 92 High Flow N/C 8.00 92 General Appearance: No Apparent Distress, Chronically ill, Obese Respiratory: Lungs Clear, No Accessory Muscle Use Cardiovascular: Regular Rate, Rhythm, No Murmur Neurologic/Psychiatric: Alert, Oriented x3 Hospital Course pt was admitted due to acute on chronic respiratory failure due to CHF exacerbation. She was treated with IV lasix and did well. She was able to be titrated back to her baseline of 8lpm of oxygen. She was seen in consultation by Cardiology and TelePulm. She was discharged home in stable and improved condition to follow up with the MA and cardiology and pulmonology. These appointments were not made prior to discharge as she reports that the MA has to make them. Labs (last 24 hrs) Microbiology 01/04/21 MRSA Screen - Final, Complete MRSA not isolated Patient resulted labs reviewed. Pending Labs Imaging: Reviewed Imaging Report Discussion & Recommendations Discharge Planning: >30 minutes discharge planning Discharge Home Medications: Active Scripts Active Furosemide 40 Mg Tablet 40 Mg PO BID Reported Ozempic (Semaglutide) 1 Mg/0.75 Ml Pen.injctr 1 Mg SQ FRI Potassium Chloride 10 Meq Tab.er.prt 20 Meq PO DAILY TAKES 2 (10MEQ) TABS Metoprolol Succinate 25 Mg Tab.er.24h 25 Mg PO DAILY Metformin HCl ER (Metformin HCl) 500 Mg Tab.er.24 1,000 Mg PO BID TAKES 2 (500MG) TABS Nexium (Esomeprazole Magnesium) 40 Mg Cap 40 Mg PO DAILY MAY OPEN CAPSULE AND SPRINKLE ON APPLESAUCE Montelukast Sodium 10 Mg Tablet 10 Mg PO HS Aspirin 81 Mg Tab.chew 81 Mg PO HS Pregabalin 225 Mg Capsule 225 Mg PO BID Losartan Potassium 25 Mg Tablet 25 Mg PO HS Flonase Allergy Relief (Fluticasone Propionate) 9.9 Ml [place].susp 2 [place] NS DAILY PRN Symbicort 160-4.5 Mcg Inhaler (Budesonide/Formoterol Fumarate) 10.2 Gm Hfa.aer.ad 2 Puff IH BID Proair Hfa (Albuterol Sulfate) 1 Puff Puff 2 Puff IH Q6H PRN Albuterol Sulfate 2.5 Mg/0.5 Ml Vial.neb 2.5 Mg INH Q6H PRN Lantus (Insulin Glargine,Hum.rec.anlog) 100 Unit/1 Ml Vial 110 Unit SQ HS Novolog (Insulin Aspart) 100 Unit/1 Ml Susp 30 Unit SQ AC Acetaminophen 500 Mg Tablet 1,000 Mg PO BID PRN Diclofenac Sodium 100 Gm Gel..gram. 4 Gm TP QID PRN Atorvastatin Calcium 80 Mg Tablet 80 Mg PO HS Cetirizine HCl 10 Mg Tab.chew 10 Mg PO DAILY Ropinirole HCl 1 Mg Tablet 1 Mg PO BID Plavix (Clopidogrel Bisulfate) 75 Mg Tablet 75 Mg PO HS Instructions to patient/family Please see electronic discharge instructions given to patient. IVETTE PARKS MD Jan 07, 2021 10:04
--- NOTE | 2021-01-07 10:23 | Physical Therapy Daily Note ---
PT Daily Note-Current Subjective Patient is very agreeable to participate with therapy. Mental Status Patient Orientation: Normal For Age Attachments: Oxygen (8L HF NC continuous) Transfers SCALE: Activities may be completed with or without assistive devices. 8-Kyacrcxhwr-cqvddno completes the activity by him/herself with no assistance from a helper. 5-Set-up or Clean-up Assistance-helper sets up or cleans up; patient completes activity. [place] assists only prior to or following the activity. 4-Supervision or Touching Assistance-helper provides verbal cues and/or touching/steadying and/or contact guard assistance as patient completes activity. Assistance may be provided throughout the activity or intermittently. 3-Partial/Moderate Assistance-helper does LESS THAN HALF the effort. Virden lifts, holds or supports trunk or limbs, but provides less than half the effort. 2-Substantial/Maximal Assistance-helper does MORE THAN HALF the effort. [place] lifts or holds trunk or limbs and provides more than half the effort. 0-Mygkixffr-mllcey does ALL the effort. Patient does none of the effort to complete the activity. Or, the assistance of 2 or more helpers is required for the patient to complete the activity. If activity was not attempted, code reason: 7-Patient Refused. 9-Not Applicable-not attempted and the patient did not perform the activity before the current illness, exacerbation or injury. 10-Not Attempted due to Environmental Limitations-(lack of equipment, weather restraints, etc.). 88-Not Attempted due to Medical Conditions or Safety Concerns. Sit to Stand (QC): 6 Gait Training Does the Patient Walk?: Yes Distance: 100' x 1; 200 x 1 Walk 10 feet (QC): 5 Walk 50 ft with 2 Turns(QC): 5 Walk 150 ft (QC): 5 Gait Assistive Device: FWW safe and functional gait sequence with no deviation Treatments 1 seated recovery period due to SOA with SAO2 85% on 8L HF NC with recovery to 90%; after 200', SAO2 79% on 8L with prolonged recovery (~4 minutes) to 91%. Assessment Patient tolerated session and remains up in recliner with needs met. Physician in to assess patient. Plan dismissal this week. PT Baffle Installer Goals [facility] Goals PT Baffle Installer Goals Time Frame: Jan 16, 2021 Roll Left & Right (QC): 6 Sit to Lying (QC): 6 Lying-Sitting on Side/Bed(QC): 6 Sit to Stand (QC): 6 Chair/Qig-bp-Klurq Xfer(QC): 6 Toilet Transfer (QC): 6 Does the Patient Walk: Yes Walk 10 feet (QC): 6 Walk 50ft with 2 Turns (QC): 6 Walk 150 ft (QC): 6 PT Plan Treatment/Plan Treatment Plan: Continue Plan of Care Treatment Plan: Bed Mobility, Education, Functional Activity Lang, Functional Strength, Gait, Safety, Therapeutic Exercise, Transfers Treatment Duration: Jan 16, 2021 Frequency: 6 times per week Estimated Hrs Per Day: .25 hour per day Patient and/or Family Agrees t: Yes Time/GCodes Time In: 907 Time Out: 925 Total Billed Treatment Time: 18 Total Billed Treatment 1 visit FA 18 min RICK ROSS PT Jan 07, 2021 10:23
--- NOTE | 2021-01-07 10:28 | Cardiology Progress Note ---
Subjective Date Seen by Provider: Jan 07, 2021 Time Seen by Provider: 08:00 Subjective/Events-last exam Patient was seen at bedside, reporting improvement, feeling better. Review of Systems General: No Chills, No Night Sweats; Fatigue; No Malaise, No Appetite, No Other HEENT: No Head Aches, No Visual Changes, No Eye Pain, No Ear Pain, No Dysphasia, No Sinus Congestion, No Post Nasal Drip, No Sore Throat, No Other Pulmonary: No Dyspnea, No Cough, No Pleuritic Chest Pain, No Other Cardiovascular: No: Chest Pain, Palpitations, Orthopnea, Paroxysmal Noc. Dyspnea, Edema, Lt Headedness, Other Focused Exam Time of Focused Exam: 21:00 Objective-Cardiology Exam Last Set of Vital Signs Vital Signs 01/07/21 01/07/21 07:39 09:47 Temp 35.5 Pulse 72 Resp 20 B/P (MAP) 139/69 (92) Pulse Ox 94 O2 Delivery High Flow N/C O2 Flow Rate 8.00 FiO2 92 I&O Intake and Output 01/07/21 00:00 Intake Total 2080 ml Output Total 4100 ml Balance -2020 ml Intake Oral 2080 ml Output Urine Total 4100 ml # Voids 1 # Bowel Movements 1 General: Alert, Oriented X3, Cooperative HEENT: Atraumatic, PERRLA Neck: Supple, No JVD, No Thyromegaly Lungs: Clear to Auscultation, Normal Air Movement Heart: Regular Rate, Normal S1, Normal S2, No Murmurs Abdomen: Normal Bowel Sounds, Soft, No Tenderness, No Hepatosplenomegaly, No Masses Extremities: No Clubbing, No Cyanosis, No Edema, Normal Pulses, No Tenderness/Swelling Skin: No Rashes, No Breakdown, No Significant Lesion Neuro: Normal Gait, Normal Speech, Strength at 5/5 X4 Ext, Normal Tone, Sensation Intact Psych/Mental Status: Mental Status NL, Mood NL Results Lab Laboratory Tests 01/07/21 06:17 A/P-Cardiology Admission Diagnosis Shortness of breath Hypertension Hyperlipidemia Coronary artery disease Assessment/Plan Shortness of breath likely due to pulmonary embolism and/or obesity- hypoventilation and GAVI - Echo on 01/05/21: Right heart enlargement with evidence of pressure and volume overload, PASP 75-80 mmHg, LVEF 50-55%, a small pericardial effusion that does not appear to be hemodynamically significant, CT scan did not show any pulmonary embolism, repeat chest x-ray did not show any acute abnormality, patient was feeling better, reporting improvement in her symptoms. Cardiac cath of 07-31-[address] Lanier showed mild non-obstructive dz with mildly elevated LVEDP Dizziness of undetermined etiology - possibly secondary to medications (reports started after starting Toprol XL) Non-syncopal fall on Monday Acute on chronic exacerbation of COPD - oxygen-dependent Tobaccoism - stopped 2 weeks ago Hypertension, controlled, monitor blood pressure Hyperlipidemia, monitor lipids Diabetes mellitus, followed and managed by primary care physician H/O CVA approx 4 yrs ago H/O R CEA 4 yrs ago at the [facility] in [place] PAD - h/o kissing stents bilat LE - details unknown - done approx 4 yrs ago at the [facility] in [place] - reports had f/u with the [facility] in [place] last week for f/u u/s on legs and neck - reports everything was "good" Peripheral neuropathy H/O left-sided vocal cord paralysis - details unknown H/O cholecystectomy Elevated BMI approx 47 Hypomagnesemia MILA LANIER MD Jan 07, 2021 10:28
[2021-01-07] MEDS: RT--FLUTICASONE/SALMETEROL 232-14 (AIRDUO RespiCLICK) IH SCH (10:35)
--- NOTE | 2021-01-07 12:53 | Discharge Inst-Simple/Standard ---
Discharge Inst-Standard Discharge Medications New, Converted or Re-Newed RX: Transmitted to Pharmacy Patient Instructions/Follow Up Plan of Care/Instructions/FU: Please continue to take your medications as written. Please follow up with your primary care HR INTERN to follow up this hospital stay and [facility] get [facility] with Dr Choudhury [facility]. Please keep your appointment with your tandem mill roller as scheduled. Activity as Tolerated: Yes Discharge Diet: Cardiac Diet Return to The Hospital For: Chest pain, shortness of breath, weakness, confusion, if you feel you are getting worse. IVETTE PARKS MD Jan 07, 2021 12:53
[2021-01-07 13:10] VITALS: BP 136/63
== END 2021-01-07 13:30 | disposition home or self-care (01) | DRG 291 ==
LOC: EDUNIT# 15:50 → ER FS 15:56 → ICU 22:36 → 4TH 01-05 12:38
PROVIDERS: ADMIT Family Medicine; ATTEND Family Medicine
DX: I13.0 Hypertensive heart and chronic kidney disease with heart failure and stage 1 through stage 4 chronic kidney disease, or unspecified chronic kidney disease (principal); J96.21 Acute and chronic respiratory failure with hypoxia; I50.33 Acute on chronic diastolic (congestive) heart failure; J44.1 Chronic obstructive pulmonary disease with (acute) exacerbation; Z68.42 Body mass index [BMI] 45.0-49.9, adult; N18.30 Chronic kidney disease, stage 3 unspecified; E78.2 Mixed hyperlipidemia; I27.20 Pulmonary hypertension, unspecified; E11.22 Type 2 diabetes mellitus with diabetic chronic kidney disease; I25.10 Atherosclerotic heart disease of native coronary artery without angina pectoris; E11.42 Type 2 diabetes mellitus with diabetic polyneuropathy; E83.42 Hypomagnesemia; E66.01 Morbid (severe) obesity due to excess calories; R53.81 Other malaise; G25.81 Restless legs syndrome; E78.5 Hyperlipidemia, unspecified; G47.33 Obstructive sleep apnea (adult) (pediatric); R42 Dizziness and giddiness; T44.7X5A Adverse effect of beta-adrenoreceptor antagonists, initial encounter; Z99.81 Dependence on supplemental oxygen; Z87.891 Personal history of nicotine dependence; Z95.5 Presence of coronary angioplasty implant and graft; Z86.73 Personal history of transient ischemic attack (TIA), and cerebral infarction without residual deficits
CPT/HCPCS: 36415; 70450; 71045; 71046; 71275; 74176; 80048; 80053; 82805; 82947; 83735; 83880; 84100; 84484; 85025; 85379; 86141; 87081; 93005; 93306; 94640; 94760; 96374; 99291

== ENCOUNTER 2021-01-26 14:57 | Emergency (ER) | payer OTHER ==
[~2021-01-26 14:57] MED LIST changes: +ASPI-999 PO; +FURO40TA4 PO; +LOSA25TA41 PO; +METF-478 PO; +MONT10TA32 PO; +MTP25TSR PO; +NF-ESOM40C PO; +POTA10TA36 PO; +PRED5TAB PO; +PREG225C7 PO; +SEMA1PEN3 SQ
--- NOTE | 2021-01-26 15:08 | ED General ---
General Stated Complaint: SYNCOPE; FALL Source of Information: Patient, Family History of Present Illness Date Seen by Provider: Jan 26, 2021 Time Seen by Provider: 15:00 Timing/Duration: 1 Hour Severity: Moderate Modifying Factors: improves with Other Associated Systoms: No Seizure; Other Allergies and Home Medications Allergies Coded Allergies: lisinopril (Verified Allergy, Unknown, 05/24/19) metformin (Verified Allergy, Unknown, 07/31/19) saxagliptin (Verified Allergy, Unknown, 07/31/19) simvastatin (Verified Allergy, Unknown, weakness, 05/24/19) Home Medications Acetaminophen 500 Mg Tablet, 1,000 MG PO BID PRN for PAIN-MILD (1-4), (Reported) Albuterol Sulfate 2.5 Mg/0.5 Ml Vial.neb, 2.5 MG INH Q6H PRN for SHORTNESS OF BREATH, (Reported) Albuterol Sulfate 1 Puff Puff, 2 PUFF IH Q6H PRN for SHORTNESS OF BREATH, (Reported) Aspirin 81 Mg Tab.chew, 81 MG PO HS, (Reported) Atorvastatin Calcium 80 Mg Tablet, 80 MG PO HS, (Reported) Budesonide/Formoterol Fumarate 10.2 Gm Hfa.aer.ad, 2 PUFF IH BID, (Reported) Cetirizine HCl 10 Mg Tab.chew, 10 MG PO DAILY, (Reported) Clopidogrel Bisulfate 75 Mg Tablet, 75 MG PO HS, (Reported) Diclofenac Sodium 100 Gm Gel..gram., 4 GM TP QID PRN for INFLAMMATION/PAIN, (Reported) Esomeprazole Magnesium 40 Mg Cap, 40 MG PO DAILY, (Reported) MAY OPEN CAPSULE AND SPRINKLE ON APPLESAUCE Fluticasone Propionate 9.9 Ml [place].susp, 2 [place] NS DAILY PRN for CONGESTION, (Reported) Furosemide 40 Mg Tablet, 40 MG PO BID Prescribed by: IVETTE PARKS on 01/07/21 1000 Insulin Aspart 100 Unit/1 Ml Susp, 30 UNIT SQ AC, (Reported) Insulin Glargine,Hum.rec.anlog 100 Unit/1 Ml Vial, 110 UNIT SQ HS, (Reported) Losartan Potassium 25 Mg Tablet, 25 MG PO HS, (Reported) Metformin HCl 500 Mg Tab.er.24, 1,000 MG PO BID, (Reported) TAKES 2 (500MG) TABS Metoprolol Succinate 25 Mg Tab.er.24h, 25 MG PO DAILY, (Reported) Montelukast Sodium 10 Mg Tablet, 10 MG PO HS, (Reported) Potassium Chloride 10 Meq Tab.er.prt, 20 MEQ PO DAILY, (Reported) TAKES 2 (10MEQ) TABS Pregabalin 225 Mg Capsule, 225 MG PO BID, (Reported) Ropinirole HCl 1 Mg Tablet, 1 MG PO BID, (Reported) Semaglutide 1 Mg/0.75 Ml Pen.injctr, 1 MG SQ FRI, (Reported) Patient Home Medication List Home Medication List Reviewed: Yes Review of Systems Review of Systems Constitutional: see HPI EENTM: see HPI Respiratory: see HPI Cardiovascular: see HPI Gastrointestinal: see HPI Genitourinary: see HPI Musculoskeletal: see HPI Skin: see HPI Psychiatric/Neurological: See HPI Hematologic/Lymphatic: See HPI Immunological/Allergic: see HPI All Other Systems Reviewed Negative Unless Noted: Yes Past Jqplbtq-Qkgqwz-Uqpunx Hx Patient Social History Tobacco Use?: No Immunizations Up To Date Tetanus Booster (TDap): Unknown Seasonal Allergies Seasonal Allergies: No Past Medical History Surgeries: Yes (KISSING STENTS IN LEGS) Gallbladder, Hysterectomy, Tubal Ligation Respiratory: Yes (home O2; possible pulmonary HTN- sees DR GARCIA) Pneumonia, COPD Currently Using CPAP: Yes Cardiac: Yes High Cholesterol, Hypertension Neurological: Yes Stroke Genitourinary: No Gastrointestinal: Yes Gastroesophageal Reflux Musculoskeletal: No Endocrine: Yes Diabetes, Insulin dep HEENT: No Cancer: No Psychosocial: No Integumentary: No Blood Disorders: No Adverse Reaction/Blood Tranf: No Physical Exam Vital Signs Vital Signs - First Documented 01/26/21 15:05 Temp 36.8 Pulse 84 Resp 20 B/P (MAP) 148/72 (97) Pulse Ox 88 O2 Delivery Nasal Cannula Capillary Refill : Height, Weight, BMI Height: '" Weight: lbs. oz. kg; 46.85 BMI Method: General Appearance: No Apparent Distress, WD/WN, Other (Mildly obtunded) Eyes: Bilateral Eye Normal Inspection, Bilateral Eye PERRL, Bilateral Eye EOMI (Sluggish reactivity) HEENT: PERRL/EOMI, Normal ENT Inspection, Pharynx Normal, Moist Mucous Membranes, Other (Edentulous) Neck: Full Range of Motion, Non Tender, Supple Respiratory: Chest Non Tender, Lungs Clear, Other (Diminished respiratory effort) Cardiovascular: Regular Rate, Rhythm Gastrointestinal: No Pulsatile Mass, Soft Back: Normal Inspection Extremity: Normal Capillary Refill, Normal Inspection, Normal Range of Motion, Non Tender Neurologic/Psychiatric: Oriented x3, Other (Obtunded) Skin: Other Lymphatic: Other Focused Exam Sepsis Stage: Ruled Out Progress/Results/Core Measures Suspected Sepsis SIRS Temperature: Pulse: Respiratory Rate: Laboratory Tests 01/26/21 15:25: White Blood Count 6.1 Blood Pressure / Mean: Laboratory Tests 01/26/21 15:25: Creatinine 1.25, Platelet Count 83L, Total Bilirubin 0.9 Results/Orders Lab Results Laboratory Tests Test 01/26/21 15:25 01/26/21 15:55 Range/Units White Blood Count 6.1 4.3-11.0 10^3/uL Red Blood Count 4.50 4.35-5.85 10^6/uL Hemoglobin 12.5 11.5-16.0 G/DL Hematocrit 40 35-52 % Mean Corpuscular Volume 89 80-99 FL Mean Corpuscular Hemoglobin 28 25-34 PG Mean Corpuscular Hemoglobin Concent 31 L 32-36 G/DL Red Cell Distribution Width 17.2 H 10.0-14.5 % Platelet Count 83 L 130-400 10^3/uL Mean Platelet Volume 7.4-10.4 FL Immature Granulocyte % (Auto) 0 % Neutrophils (%) (Auto) 74 42-75 % Lymphocytes (%) (Auto) 18 12-44 % Monocytes (%) (Auto) 8 0-12 % Eosinophils (%) (Auto) 0 0-10 % Basophils (%) (Auto) 0 0-10 % Neutrophils # (Auto) 4.5 1.8-7.8 X 10^3 Lymphocytes # (Auto) 1.1 1.0-4.0 X 10^3 Monocytes # (Auto) 0.5 0.0-1.0 X 10^3 Eosinophils # (Auto) 0.0 0.0-0.3 10^3/uL Basophils # (Auto) 0.0 0.0-0.1 10^3/uL Immature Granulocyte # (Auto) 0.0 0.0-0.1 10^3/uL Percent Immature Platelet Fraction 11.3 H 0.0-7.6 % Sodium Level 140 135-145 MMOL/L Potassium Level 4.9 3.6-5.0 MMOL/L Chloride Level 106 98-107 MMOL/L Carbon Dioxide Level 17 L 21-32 MMOL/L Anion Gap 17 H 5-14 MMOL/L Blood Urea Nitrogen 38 H 7-18 MG/DL Creatinine 1.25 0.60-1.30 MG/DL Estimat Glomerular Filtration Rate 44 BUN/Creatinine Ratio 30 Glucose Level 187 H 70-105 MG/DL Calcium Level 9.0 8.5-10.1 MG/DL Corrected Calcium 9.3 8.5-10.1 MG/DL Total Bilirubin 0.9 0.1-1.0 MG/DL Aspartate Amino Transf (AST/SGOT) 35 H 5-34 U/L Alanine Aminotransferase (ALT/SGPT) 18 0-55 U/L Alkaline Phosphatase 146 H 40-136 U/L Troponin I < 0.30 <0.30 NG/ML Pro-B-Type Natriuretic Peptide 4853.0 H <75.0 PG/ML Total Protein 6.8 6.4-8.2 GM/DL Albumin 3.6 3.2-4.5 GM/DL D-Dimer 0.96 H 0.00-0.49 UG/ML My Orders Orders - EUGENE CRUZ DO Fibrin Degradation Products (01/26/21 15:29) Cbc With Automated Diff (01/26/21 15:43) Comprehensive Metabolic Panel (01/26/21 15:43) Troponin I Fs (01/26/21 15:43) Chest 1 View Ap/Pa Only (01/26/21 15:43) Probnp Fs (01/26/21 15:43) Arterial Blood Gas (01/26/21 15:43) Ekg Tracing (01/26/21 16:09) Furosemide Injection (Lasix Injection) (01/26/21 16:45) Ct Head Wo (01/26/21 17:08) Ct Angio Chest W (01/26/21 17:08) Furosemide Injection (Lasix Injection) (01/26/21 17:15) Medications Given in ED Current Medications Medications Dose Ordered Sig/Siva Route Start Time Stop Time Status Last Admin Dose Admin Furosemide 80 mg ONCE ONCE IVP 01/26/21 17:15 01/26/21 17:16 DC 01/26/21 18:58 80 MG Iohexol 125 ml ONCE ONCE IV 01/26/21 18:15 01/26/21 18:17 DC 01/26/21 18:58 125 ML Sodium Chloride 10 ml NEEDED PRN IV 01/26/21 18:15 01/26/21 18:58 10 ML Sodium Chloride 100 ml ONCE ONCE IV 01/26/21 18:15 01/26/21 18:17 DC 01/26/21 18:58 85 ML Vital Signs/I&O 01/26/21 15:05 Temp 36.8 Pulse 84 Resp 20 B/P (MAP) 148/72 (97) Pulse Ox 88 O2 Delivery Nasal Cannula Capillary Refill : Departure Communication (Admissions) EKG: Normal sinus rhythm chest x-ray: No acute findings. CTA chest: No findings of pulmonary embolus. Syncopal episode prior to ED arrival. Patient was walking beyond her bedside commode without the aid of her walker when she fell. Likely combination to low cardiac output and medications. He has previously fallen and was instructed to use both walker and stay within a 5 foot proximity of her chair. No arrhythmia on the monitor. Patient did hit her head and is on Plavix. CT head negative for acute injury. Lab work reviewed, single dose of Lasix given with adequate diuresis. CTA negative for pulmonary embolus. Vital signs stable on oxygen throughout ED stay. Clinically patient feels better. Will discharge home with typical closed head injury and home safety instructions. Patient verbalizes understanding and agreement with discharge instructions prior to departure. Impression Primary Impression: Syncope Additional Impressions: Closed head injury Chronic congestive heart failure Chronic kidney disease Chronic respiratory failure with hypoxia, on home oxygen therapy Disposition: HOME, SELF-CARE Condition: Stable Departure-Patient Inst. Decision time for Depature: 19:31 Referrals: STACEY CORRALES DO (PCP) Primary Care Physician JEAN ADHIKARI-JAYNE (Family) Primary Care Physician Patient Instructions: Concussion, Adult ED, Heart Failure, Adult (DC), Fainting, Adult ED Add. Discharge Instructions: Please use walker at all time and stay within 5 feet of your recliner. Continue home medications and follow-up with your PCP and/or prop and effects designer for further management. Return to the ED if new or worsening symptoms EUGENE CRUZ DO Jan 26, 2021 15:08
[2021-01-26 16:27] LABS: HEMATOCRIT 40 % (35-52); HEMOGLOBIN 12.5 G/DL (11.5-16.0); MEAN CORPUSCULAR HEMOGLOBIN 28 PG (25-34); MEAN CORPUSCULAR HGB CONC 31 G/DL (32-36); MEAN CORPUSCULAR VOLUME 89 FL (80-99); PLATELET COUNT 83 10^3/uL (130-400); WHITE BLOOD COUNT 6.1 10^3/uL (4.3-11.0)
[2021-01-26 16:28] LABS: BASOPHILS % (AUTO) 0 % (0-10); EOSINOPHILS % (AUTO) 0 % (0-10); LYMPHOCYTES # (AUTO) 1.1 X 10^3 (1.0-4.0); LYMPHOCYTES % (AUTO) 18 % (12-44); MONOCYTES # (AUTO) 0.5 X 10^3 (0.0-1.0); MONOCYTES % (AUTO) 8 % (0-12); NEUTROPHILS # (AUTO) 4.5 X 10^3 (1.8-7.8); NEUTROPHILS % (AUTO) 74 % (42-75)
[2021-01-26 16:29] LABS: ALANINE AMINOTRANSFERASE 18 U/L (0-55); ALKALINE PHOSPHATASE 146 U/L (40-136); BILIRUBIN,TOTAL 0.9 MG/DL (0.1-1.0); BUN/CREATININE RATIO 30; CARBON DIOXIDE 17 MMOL/L (21-32); CHLORIDE 106 MMOL/L (98-107); CREATININE SERUM 1.25 MG/DL (0.60-1.30); GFR ESTIMATED 44; GLUCOSE 187 MG/DL (70-105); POTASSIUM 4.9 MMOL/L (3.6-5.0); SODIUM 140 MMOL/L (135-145)
[2021-01-26 16:30] LABS: ALBUMIN 3.6 GM/DL (3.2-4.5); TOTAL PROTEIN 6.8 GM/DL (6.4-8.2)
--- NOTE | 2021-01-26 16:34 | Diagnostic Imaging Report ---
INDICATION: Shortness of breath Frontal chest obtained at 4:11 p.m. and compared with 01/05/2021. There is marked cardiomegaly with mild central vascular prominence. There is no focal infiltrate or pneumothorax or pleural fluid. IMPRESSION: Marked cardiomegaly with no acute process in the chest. Dictated by: Dictated on workstation # [id number]
[2021-01-26] MEDS ORDERED: FUROSEMIDE 40 MG/4 ML INJ (LASIX) IVP ONE ×2 (16:45→17:15)
--- NOTE | 2021-01-26 17:45 | Diagnostic Imaging Report ---
CLINICAL INDICATION: Patient has been very dizzy. EXAM: Axial CT scan of the brain without IV contrast with coronal and sagittal reformatted images. Auto Exposure Controls were utilized during the CT exam to meet ALARA standards for radiation dose reduction. COMPARISON: Head CT without contrast dated 01/04/2021. FINDINGS: There is no evidence of acute cerebral infarct, intracranial hemorrhage, or gross mass effect. The brain parenchymal volume appears appropriate for patient's age. There is normal cifuentes-white matter distinction. There is no significant midline shift or herniation. There is no evidence of hydrocephalus. The basal cisterns are unremarkable. The skull, extracranial soft tissue, and orbits are unremarkable. The paranasal sinuses are unremarkable. Temporal bones show no significant abnormality. IMPRESSION: Unremarkable CT scan of the brain for age. Dictated by: Dictated on workstation # [id number]
[2021-01-26] MEDS ORDERED: HOLD METFORMIN - RECEIVED CONTRAST 20 ML VIAL IV SCH (18:15)
[2021-01-26] MEDS ORDERED: CATHETER FLUSH 10 ML SYR IV PRN (18:15)
[2021-01-26] MEDS ORDERED: IOHEXOL 350 MG/ML 150 ML (OMNIPAQUE 350) VIAL IV ONE (18:15)
[2021-01-26] MEDS ORDERED: NS 100 ML (IVPB) BAG IV ONE (18:15)
--- NOTE | 2021-01-26 19:06 | Diagnostic Imaging Report ---
PROCEDURE: CT angiography of the chest with contrast. TECHNIQUE: Multiple contiguous axial images were obtained through the chest after uneventful bolus administration of intravenous contrast. 3D reconstructed CTA MIP acquisitions were also performed. Auto Exposure Controls were utilized during the CT exam to meet ALARA standards for radiation dose reduction. INDICATION: Dizziness, syncope COMPARISON: 12/06/2020 FINDINGS: The heart is mildly enlarged. There is coronary artery disease. There is slight increase involving the patient's pericardial effusion which appears simple. There is no soft tissue gas or pericardial thickening. The pulmonary arteries and aorta are grossly unremarkable. No embolism is identified. The lungs are clear. No mass, nodule or infiltrate is seen. There is no pleural effusion. Visualized upper abdominal solid organs are unremarkable. Gallbladder surgically absent. Osseous structures are age-appropriate. IMPRESSION: 1. Cardiac enlargement with coronary artery disease 2. Slightly increased simple appearing pericardial effusion. 3. No pulmonary embolism or acute aortic pathology. 4. No acute pulmonary infiltrate. Dictated by: Dictated on workstation # [id number]
[2021-01-26 19:38] VITALS: BP 123/63
== END 2021-01-26 19:45 | disposition home or self-care (01) ==
LOC: EDUNIT# 14:57 → ER FS 14:58
DX: S09.90XA Unspecified injury of head, initial encounter (principal); R55 Syncope and collapse; I13.0 Hypertensive heart and chronic kidney disease with heart failure and stage 1 through stage 4 chronic kidney disease, or unspecified chronic kidney disease; I50.9 Heart failure, unspecified; N18.9 Chronic kidney disease, unspecified; E11.22 Type 2 diabetes mellitus with diabetic chronic kidney disease; J96.11 Chronic respiratory failure with hypoxia; J44.9 Chronic obstructive pulmonary disease, unspecified; K21.9 Gastro-esophageal reflux disease without esophagitis; E78.00 Pure hypercholesterolemia, unspecified; Z86.73 Personal history of transient ischemic attack (TIA), and cerebral infarction without residual deficits; Z79.4 Long term (current) use of insulin; Z99.81 Dependence on supplemental oxygen; Z79.899 Other long term (current) drug therapy; Z79.82 Long term (current) use of aspirin; Z79.01 Long term (current) use of anticoagulants; W19.XXXA Unspecified fall, initial encounter
CPT/HCPCS: 36415; 70450; 71045; 71275; 80053; 83880; 84484; 85025; 85379; 93005

== ENCOUNTER 2021-02-28 18:07 | Emergency (ER) | payer OTHER ==
[~2021-02-28] VITALS: Ht 175.3 cm; Wt 149.7 kg
--- OUTSIDE RECORDS SUMMARY | 2021-02-28 18:11 | XMS REPORT | Clinical Summary ---
Author Author [facility] Organization [facility] Address Unknown Phone Unavailable Care Team Providers Care Director Of Campus Recreation Name Role Phone Nara Lara ZENOBIA PCP Source Comments Some departments are not documenting in the electronic medical record. If you d o not see the information that you expected, contact Release of Information in [facility] Health Information Management department at [phone] for further assistan ce in locating additional records.[facility] Allergies Not on File Medications Not on file Active Problems Not on file Social History Date Tobacco Use Types Packs/Day Years Used Never Assessed Sex Assigned at Date Recorded Not on file Last Filed Vital Signs Not on file Plan of Treatment Health Maintenance Due Date Last Done Comments HIV SCREENING 1980 DTAP/TDAP VACCINES (1 - 1983 Tdap) HEPATITIS C SCREENING 1983 PHYSICAL (COMPREHENSIVE) 1983 EXAM CERVICAL CANCER SCREENING 1986 BREAST CANCER SCREENING 2005 COLORECTAL CANCER 2015 SCREENING SHINGLES RECOMBINANT 2015 VACCINE (1 of 2) INFLUENZA VACCINE 04/09/2021 Results Not on filefrom Last 3 Months Insurance Type Payer Benefit Subscriber ID Effective Phone Address Plan / Dates Group Medicare MEDICARE MEDICARE [id number] 2016-P PART A resent [id number] 1 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
--- NOTE | 2021-02-28 18:15 | ED Dyspnea ---
General Stated Complaint: LOW O2 Source of Information: Patient, EMS Exam Limitations: No Limitations History of Present Illness Date Seen by Provider: Feb 28, 2021 Time Seen by Provider: 18:13 Initial Comments 55-year-old female with chronic heart and lung disease and on home oxygen normally at 6 to 8 L per nasal cannula 24 hours daily presents with 1 week of progressive shortness of air. States she has been running 78 to 80% oxygen sat on the 6 to 8 L. Her doctor is at the [facility] Allergies and Home Medications Allergies Coded Allergies: lisinopril (Verified Allergy, Unknown, 05/24/19) metformin (Verified Allergy, Unknown, 07/31/19) saxagliptin (Verified Allergy, Unknown, 07/31/19) simvastatin (Verified Allergy, Unknown, weakness, 05/24/19) Home Medications Acetaminophen 500 Mg Tablet, 1,000 MG PO BID PRN for PAIN-MILD (1-4), (Reported) Albuterol Sulfate 2.5 Mg/0.5 Ml Vial.neb, 2.5 MG INH Q6H PRN for SHORTNESS OF BREATH, (Reported) Albuterol Sulfate 1 Puff Puff, 2 PUFF IH Q6H PRN for SHORTNESS OF BREATH, (Reported) Aspirin 81 Mg Tab.chew, 81 MG PO HS, (Reported) Atorvastatin Calcium 80 Mg Tablet, 80 MG PO HS, (Reported) Budesonide/Formoterol Fumarate 10.2 Gm Hfa.aer.ad, 2 PUFF IH BID, (Reported) Cetirizine HCl 10 Mg Tab.chew, 10 MG PO DAILY, (Reported) Clopidogrel Bisulfate 75 Mg Tablet, 75 MG PO HS, (Reported) Diclofenac Sodium 100 Gm Gel..gram., 4 GM TP QID PRN for INFLAMMATION/PAIN, (Reported) Esomeprazole Magnesium 40 Mg Cap, 40 MG PO DAILY, (Reported) MAY OPEN CAPSULE AND SPRINKLE ON APPLESAUCE Fluticasone Propionate 9.9 Ml [place].susp, 2 SPRAY NS DAILY PRN for CONGESTION, (Reported) Furosemide 40 Mg Tablet, 40 MG PO BID Prescribed by: IVETTE PARKS on 01/07/21 1000 Insulin Aspart 100 Unit/1 Ml Susp, 30 UNIT SQ AC, (Reported) Insulin Glargine,Hum.rec.anlog 100 Unit/1 Ml Vial, 110 UNIT SQ HS, (Reported) Losartan Potassium 25 Mg Tablet, 25 MG PO HS, (Reported) Metformin HCl 500 Mg Tab.er.24, 1,000 MG PO BID, (Reported) TAKES 2 (500MG) TABS Metoprolol Succinate 25 Mg Tab.er.24h, 25 MG PO DAILY, (Reported) Montelukast Sodium 10 Mg Tablet, 10 MG PO HS, (Reported) Potassium Chloride 10 Meq Tab.er.prt, 20 MEQ PO DAILY, (Reported) TAKES 2 (10MEQ) TABS Pregabalin 225 Mg Capsule, 225 MG PO BID, (Reported) Ropinirole HCl 1 Mg Tablet, 1 MG PO BID, (Reported) Semaglutide 1 Mg/0.75 Ml Pen.injctr, 1 MG SQ FRI, (Reported) Patient Home Medication List Home Medication List Reviewed: Yes Review of Systems Review of Systems Constitutional: No chills, No fever; malaise, weakness EENTM: no symptoms reported Respiratory: dyspnea on exertion; No hemoptysis; short of breath; No stridor, No wheezing Cardiovascular: No chest pain, No edema, No palpitations Gastrointestinal: No abdominal pain, No loss of appetite, No vomiting Musculoskeletal: no symptoms reported Skin: No change in color, No rash Past Oijiejk-Zwsdlv-Mbdzhg Hx Patient Social History Tobacco Use?: No Immunizations Up To Date Tetanus Booster (TDap): Unknown Seasonal Allergies Seasonal Allergies: No Past Medical History Surgeries: Yes (KISSING STENTS IN LEGS) Gallbladder, Hysterectomy, Tubal Ligation Respiratory: Yes (home O2; possible pulmonary HTN- sees DR GARCIA) Pneumonia, COPD Currently Using CPAP: Yes Cardiac: Yes High Cholesterol, Hypertension Neurological: Yes Stroke Genitourinary: No Gastrointestinal: Yes Gastroesophageal Reflux Musculoskeletal: No Endocrine: Yes Diabetes, Insulin dep HEENT: No Cancer: No Psychosocial: No Integumentary: No Blood Disorders: No Adverse Reaction/Blood Tranf: No Physical Exam Vital Signs Vital Signs - First Documented 02/28/21 18:07 Temp 36.6 Pulse 101 Resp 20 B/P (MAP) 150/82 (104) Pulse Ox 96 O2 Delivery Nasal Cannula O2 Flow Rate 10.00 Capillary Refill : Height, Weight, BMI Height: '" Weight: lbs. oz. kg; 46.85 BMI Method: General Appearance: No Apparent Distress, Chronically ill, Obese HEENT: PERRL/EOMI, Normal ENT Inspection Neck: Non Tender, Supple Respiratory: No Accessory Muscle Use, No Respiratory Distress, Decreased Breath Sounds Cardiovascular: Regular Rate, Rhythm, No JVD Gastrointestinal: Non Tender, Soft Extremity: Normal Capillary Refill, Non Tender Neurologic/Psychiatric: Alert, Oriented x3, No Motor/Sensory Deficits, Normal Mood/Affect Focused Exam Lactate Level 02/28/21 18:14: Lactic Acid Level 3.98*H 02/28/21 20:16: Lactic Acid Level 2.74*H Lactic Acid Level Laboratory Tests Test 02/28/21 18:14 02/28/21 20:16 Lactic Acid Level 3.98 MMOL/L (0.50-2.00) *H 2.74 MMOL/L (0.50-2.00) *H Progress/Results/Core Measures Results/Orders Lab Results Laboratory Tests Test 02/28/21 09:10 02/28/21 18:14 02/28/21 20:16 Range/Units Blood Gas Puncture Site RIGHT BRACHIAL Blood Gas Patient Temperature 36.6 Arterial Blood pH 7.38 7.37-7.43 Arterial Blood Partial Pressure CO2 42 35-45 MMHG Arterial Blood Partial Pressure O2 49 L 79-93 MMHG Arterial Blood HCO3 25 23-27 MMOL/L Arterial Blood Total CO2 26.1 21.0-31.0 MMOL/L Arterial Blood Oxygen Saturation 83 L 94-100 % Arterial Blood Base Excess -0.4 -2.5-2.5 MMOL/L Jos Test NEGATIVE Blood Gas Ventilator Setting YES Blood Gas Inspired Oxygen 10 L White Blood Count 6.8 4.3-11.0 10^3/uL Red Blood Count 4.07 3.80-5.11 10^6/uL Hemoglobin 11.1 L 11.5-16.0 g/dL Hematocrit 36 35-52 % Mean Corpuscular Volume 89 80-99 fL Mean Corpuscular Hemoglobin 27 25-34 pg Mean Corpuscular Hemoglobin Concent 31 L 32-36 g/dL Red Cell Distribution Width 16.0 H 10.0-14.5 % Platelet Count 127 L 130-400 10^3/uL Mean Platelet Volume 12.4 H 9.0-12.2 fL Immature Granulocyte % (Auto) 0 % Neutrophils (%) (Auto) 78 H 42-75 % Lymphocytes (%) (Auto) 14 12-44 % Monocytes (%) (Auto) 8 0-12 % Eosinophils (%) (Auto) 0 0-10 % Basophils (%) (Auto) 0 0-10 % Neutrophils # (Auto) 5.3 1.8-7.8 X 10^3 Lymphocytes # (Auto) 0.9 L 1.0-4.0 X 10^3 Monocytes # (Auto) 0.5 0.0-1.0 X 10^3 Eosinophils # (Auto) 0.0 0.0-0.3 10^3/uL Basophils # (Auto) 0.0 0.0-0.1 10^3/uL Immature Granulocyte # (Auto) 0.0 0.0-0.1 10^3/uL Percent Immature Platelet Fraction 6.8 0.0-7.6 % D-Dimer 1.12 H 0.00-0.49 UG/ML Sodium Level 143 135-145 MMOL/L Potassium Level 3.9 3.6-5.0 MMOL/L Chloride Level 104 98-107 MMOL/L Carbon Dioxide Level 23 21-32 MMOL/L Anion Gap 16 H 5-14 MMOL/L Blood Urea Nitrogen 35 H 7-18 MG/DL Creatinine 1.22 0.60-1.30 MG/DL Estimat Glomerular Filtration Rate 46 BUN/Creatinine Ratio 29 Glucose Level 283 H 70-105 MG/DL Lactic Acid Level 3.98 *H 2.74 *H 0.50-2.00 MMOL/L Calcium Level 9.1 8.5-10.1 MG/DL Corrected Calcium 9.3 8.5-10.1 MG/DL Total Bilirubin 0.8 0.1-1.0 MG/DL Aspartate Amino Transf (AST/SGOT) 18 5-34 U/L Alanine Aminotransferase (ALT/SGPT) 13 0-55 U/L Alkaline Phosphatase 139 H 40-136 U/L Troponin I < 0.30 <0.30 NG/ML Pro-B-Type Natriuretic Peptide 4870.0 H <75.0 PG/ML Total Protein 6.9 6.4-8.2 GM/DL Albumin 3.8 3.2-4.5 GM/DL My Orders Orders - ROVENSTKISHOR JONES DO Ed Iv/Invasive Line Start (02/28/21 18:15) Troponin I Fs (02/28/21 18:15) Arterial Blood Gas (02/28/21 18:15) Cbc With Automated Diff (02/28/21 18:15) Comprehensive Metabolic Panel (02/28/21 18:15) Lactic Acid Analyzer (02/28/21 18:15) Ekg Tracing (02/28/21 18:15) Chest 1 View Ap/Pa Only (02/28/21 18:15) Probnp Fs (02/28/21 18:47) Fibrin Degradation Products (02/28/21 18:54) Ns Iv 500 Ml (Sodium Chloride 0.9%) (02/28/21 19:15) Arterial Blood Gas (02/28/21 09:10) Acetaminophen Tablet (Tylenol Tablet) (02/28/21 23:00) Medications Given in ED Current Medications Medications Dose Ordered Sig/Siva Route Start Time Stop Time Status Last Admin Dose Admin Acetaminophen 1,000 mg ONCE ONCE PO 02/28/21 23:00 02/28/21 23:01 DC 02/28/21 23:05 1,000 MG Vital Signs/I&O 02/28/21 02/28/21 02/28/21 02/28/21 18:07 19:00 20:00 21:00 Temp 36.6 Pulse 101 93 89 86 Resp 20 22 24 28 B/P (MAP) 150/82 (104) 112/87 (95) 157/41 (79) 172/85 (114) Pulse Ox 96 90 91 95 O2 Delivery Nasal Cannula High Flow N/C OxyMask OxyMask O2 Flow Rate 10.00 10.00 10.00 02/28/21 02/28/21 02/28/21 22:00 23:00 23:10 Temp 36.8 Pulse 83 85 84 Resp 24 24 24 B/P (MAP) 143/68 (93) 113/66 (82) 113/66 Pulse Ox 93 94 94 O2 Delivery OxyMask OxyMask OxyMask O2 Flow Rate 10.00 10.00 10.00 Progress Progress Note : Progress Note Patient initially did well on NC with sats low 90% on 10 liters/ NC, however frequently dropped while just talking or minimal movement. Observed patient primarily mouth breathing. Placed on NRB and she hits 100% sats w ease. Placed on face mask and sats 90-93% on 10 liters and comfortable, falls asleep and drops to upper 80's. Lungs are without wheezing or rhonchi. Patient talkative without dyspnea. No pulmonary effusion or congestion on CXR, heart dilated- baseline. Normal troponin and BNP @ baseline of 4,000 with good kidney function. Patient saw her [facility] clinic provider recently and was taken off Lasix 120mg daily and placed on torsemide 20mg daily (2 days ago) Initial ECG Impression Date: Feb 28, 2021 Initial ECG Impression Time: 19:02 Initial ECG Rate: 90 Initial ECG Rhythm: Normal Sinus Initial ECG Impression: Normal Comment RBBB Diagnostic Imaging Diagonstic Imaging: Xray Plain Films/CT/US/NM/MRI: chest Comments Date of Exam:02/28/21 CHEST 1 VIEW AP/PA ONLY HISTORY: Shortness of air. COMPARISON: 01/26/2021. TECHNIQUE: Frontal view of the chest. FINDINGS: There is marked cardiomegaly which appears similar to the prior exam. There appears to be increased airspace opacity in the right lung base. There is haziness over both lung bases which is likely due to the overlying soft tissues. There is no pleural effusion or pneumothorax. IMPRESSION: 1. Mildly increased right basilar airspace opacity, may represent atelectasis or infiltrate. 2. Marked cardiomegaly. Dictated by: Dictated on workstation # [id number] Dict: 02/28/21 1843 Trans: 02/28/211854 [facility] [id number] Interpreted by: NEO SULLIVAN MD Electronically signed by: NEO SULLIVAN MD 02/28/211854 Departure Impression Primary Impression: Chronic congestive heart failure Qualified Codes: I50.9 - Heart failure, unspecified Additional Impression: RESPIRATORY FAILURE, UNSP, UNSP W HYPOXIA OR HYPERCAPNIA Disposition: T-[facility] Condition: Improved Transfer Transfer Reason: Patient preference Time Spoke to Accepting Phy: 22:15 Transfer Progress Notes Called the [facility] (per pt request) @ 1929 and requested a bed called again @ 2054 and requested again. Called @ 2129 and was asked to "re-fax" all the information given @ 1930hrs 2199 spoke to BURKA Jackson, who later accepted @ 2214 Patient stable but easily de sats with sleeping or simple movement like eating. Does well on face mask, poorly on nasal cannula. Departure-Patient Inst. Referrals: STACEY CORRALES DO (PCP) Primary Care Physician JEAN ADHIKARI-DELIVERY DRIVER/CUSTOMER SERVICE (Family) Primary Care Physician KISHOR STAHL DO Feb 28, 2021 18:15
[2021-02-28 18:26] LABS: BASOPHILS % (AUTO) 0 % (0-10); EOSINOPHILS % (AUTO) 0 % (0-10); HEMATOCRIT 36 % (35-52); HEMOGLOBIN 11.1 g/dL (11.5-16.0); LYMPHOCYTES % (AUTO) 14 % (12-44); MEAN CORPUSCULAR HEMOGLOBIN 27 pg (25-34); MEAN CORPUSCULAR HGB CONC 31 g/dL (32-36); MEAN CORPUSCULAR VOLUME 89 fL (80-99); MEAN PLATELET VOLUME 12.4 fL (9.0-12.2); MONOCYTES % (AUTO) 8 % (0-12); NEUTROPHILS % (AUTO) 78 % (42-75); PLATELET COUNT 127 10^3/uL (130-400); WHITE BLOOD COUNT 6.8 10^3/uL (4.3-11.0)
[2021-02-28 18:27] LABS: LYMPHOCYTES # (AUTO) 0.9 X 10^3 (1.0-4.0); MONOCYTES # (AUTO) 0.5 X 10^3 (0.0-1.0); NEUTROPHILS # (AUTO) 5.3 X 10^3 (1.8-7.8)
[2021-02-28 18:47] LABS: ALANINE AMINOTRANSFERASE 13 U/L (0-55); ALBUMIN 3.8 GM/DL (3.2-4.5); ALKALINE PHOSPHATASE 139 U/L (40-136); BILIRUBIN,TOTAL 0.8 MG/DL (0.1-1.0); BUN/CREATININE RATIO 29; CALCIUM 9.1 MG/DL (8.5-10.1); CARBON DIOXIDE 23 MMOL/L (21-32); CHLORIDE 104 MMOL/L (98-107); CREATININE SERUM 1.22 MG/DL (0.60-1.30); GFR ESTIMATED 46; GLUCOSE 283 MG/DL (70-105); POTASSIUM 3.9 MMOL/L (3.6-5.0); SODIUM 143 MMOL/L (135-145); TOTAL PROTEIN 6.9 GM/DL (6.4-8.2)
--- NOTE | 2021-02-28 18:51 | Diagnostic Imaging Report ---
HISTORY: Shortness of air. COMPARISON: 01/26/2021. TECHNIQUE: Frontal view of the chest. FINDINGS: There is marked cardiomegaly which appears similar to the prior exam. There appears to be increased airspace opacity in the right lung base. There is haziness over both lung bases which is likely due to the overlying soft tissues. There is no pleural effusion or pneumothorax. IMPRESSION: 1. Mildly increased right basilar airspace opacity, may represent atelectasis or infiltrate. 2. Marked cardiomegaly. Dictated by: Dictated on workstation # [id number]
[2021-02-28 19:15] LABS: ABG BASE EXCESS -0.4 MMOL/L (-2.5-2.5); ABG OXYGEN SATURATION 83 % (94-100); ABG PCO2 42 MMHG (35-45); ABG PH 7.38 (7.37-7.43); ABG PO2 49 MMHG (79-93); ABG TCO2 26.1 MMOL/L (21.0-31.0); ALLENS TEST NEGATIVE
[2021-02-28] MEDS ORDERED: NS IV 500 ML 500 ML IV SCH (19:15)
[2021-02-28 19:16] LABS: INSPIRED O2 10 L; PATIENT TEMP 36.6; VENTILATOR YES
[2021-02-28] MEDS ORDERED: ACETAMINOPHEN 500 MG TAB (TYLENOL) PO ONE (23:00)
[2021-02-28 23:10] VITALS: BP 113/66
== END 2021-02-28 23:15 | disposition short-term general hospital (02) ==
LOC: EDUNIT# 18:07 → ER FS 18:08
DX: I11.0 Hypertensive heart disease with heart failure (principal); J96.90 Respiratory failure, unspecified, unspecified whether with hypoxia or hypercapnia; J44.9 Chronic obstructive pulmonary disease, unspecified; E78.00 Pure hypercholesterolemia, unspecified; E66.9 Obesity, unspecified; E11.9 Type 2 diabetes mellitus without complications; K21.9 Gastro-esophageal reflux disease without esophagitis; Z86.73 Personal history of transient ischemic attack (TIA), and cerebral infarction without residual deficits; Z68.42 Body mass index [BMI] 45.0-49.9, adult; Z79.82 Long term (current) use of aspirin; Z79.01 Long term (current) use of anticoagulants; Z79.4 Long term (current) use of insulin; Z79.899 Other long term (current) drug therapy
CPT/HCPCS: 36415; 71045; 80053; 82805; 83605; 83880; 84484; 85025; 85379; 93005

== ENCOUNTER 2021-05-31 19:15 | Emergency (ER) | payer OTHER ==
--- OUTSIDE RECORDS SUMMARY | 2021-05-31 19:20 | XMS REPORT | Clinical Summary ---
Author Author [facility] Organization [facility] Address Unknown Phone Unavailable Care Team Providers Care Instructional Systems Design Consultant Name Role Phone Nara Lara ZENOBIA PCP Source Comments Some departments are not documenting in the electronic medical record. If you d o not see the information that you expected, contact Release of Information in [facility] Health Information Management department at [phone] for further assistan ce in locating additional records.[facility] Allergies Not on File Medications Not [...] 2015 VACCINE (1 of 2) INFLUENZA VACCINE 02/07/2021 Results Not on filefrom Last 3 Months Insurance Type Payer Benefit Subscriber ID Effective Phone Address Plan / Dates Group Medicare MEDICARE MEDICARE [id number] 2016-P [phone] [place] [address] [id number] Advance Directives Patient Child And Adolescent Psychiatrist Explanation Type Date Recorded Advance Directive/DPOA Care Teams Start Date End Date Instructional Systems Design Consultant Relationship Specialty 06/17/20 Nara Lara APRN PCP - General Nurse [address] [place] [address]
--- NOTE | 2021-05-31 19:42 | ED Dyspnea ---
General Chief Complaint: Respiratory Problems Stated Complaint: SOB Nursing Triage Note: Pt brought in by ems with complaints of shortness of breath. Pt has a hx of CHF and states she started becoming more sob this morning. Pt given 80mg Lasix en route to the ED Source of Information: Patient, EMS, Old Records History of Present Illness Date Seen by Provider: May 31, 2021 Time Seen by Provider: 19:15 Initial Comments 56-year-old female presenting with complaints of increased shortness of breath. She states this is been worsening over the last week. Especially today since this morning. She denies any fever or chills. She has not been coughing up any congestion. She has been having increased swelling. She denies any change in her medications recently. She states that she just periodically has an exacerbation of trouble with her heart failure. She usually gets admitted to the [facility] in [place]. Her last admission was the end of February into March. She is improved since EMS had given her 80 mg of IV Lasix and she was placed on CPAP. She denies any chest pain or abdominal pain. She has had no nausea or vomiting. Timing/Duration: 1 Week (but worse today, since this morning) Severity: Severe Activities at Onset: Activity Prior Episodes/Possible Cause: Frequent Episodes Modifying Factors: Worse With Lying Down; Improves With Oxygen Associated Symptoms: Edema Allergies and Home Medications Allergies Coded Allergies: lisinopril (Verified Allergy, Unknown, 05/24/19) metformin (Verified Allergy, Unknown, 07/31/19) saxagliptin (Verified Allergy, Unknown, 07/31/19) simvastatin (Verified Allergy, Unknown, weakness, 05/24/19) Patient Home Medication List Home Medication List Reviewed: Yes Acetaminophen (Acetaminophen) 500 Mg Tablet, 1,000 MG PO BID PRN for PAIN-MILD (1-4), (Reported) Entered as Reported by: ANTHONY BUENO on 05/24/19 1804 Albuterol Sulfate (Albuterol Sulfate) 2.5 Mg/0.5 Ml Vial.neb, 2.5 MG INH Q6H PRN for SHORTNESS OF BREATH, (Reported) Entered as Reported by: MANE WADDELL on 07/31/19 1041 Albuterol Sulfate (Proair Hfa) 1 Puff Puff, 2 PUFF IH Q6H PRN for SHORTNESS OF BREATH, (Reported) Entered as Reported by: MANE WADDELL on 07/31/19 1041 Aspirin (Aspirin) 81 Mg Tab.chew, 81 MG PO HS, (Reported) Entered as Reported by: MANE WADDELL on 01/05/21 1230 Atorvastatin Calcium (Atorvastatin Calcium) 80 Mg Tablet, 80 MG PO HS, (Reported) Entered as Reported by: ANTHONY BUENO on 05/24/19 180 Budesonide/Formoterol Fumarate (Symbicort 160-4.5 Mcg Inhaler) 10.2 Gm Hfa.aer.ad, 2 PUFF IH BID, (Reported) Entered as Reported by: MANE WADDELL on 07/31/19 1041 Cetirizine HCl (Cetirizine HCl) 10 Mg Tab.chew, 10 MG PO DAILY, (Reported) Entered as Reported by: ANTHONY BUENO on 05/24/19 180 Clopidogrel Bisulfate (Plavix) 75 Mg Tablet, 75 MG PO HS, (Reported) Entered as Reported by: ANTHONY BUENO on 05/24/19 180 Diclofenac Sodium (Diclofenac Sodium) 100 Gm Gel..gram., 4 GM TP QID PRN for INFLAMMATION/PAIN, (Reported) Entered as Reported by: ANTHONY BUENO on 05/24/19 180 Esomeprazole Magnesium (Nexium) 40 Mg Cap, 40 MG PO DAILY, (Reported) Entered as Reported by: MANE WADDELL on 01/05/21 1230 Fluticasone Propionate (Flonase Allergy Relief) 9.9 Ml [place].susp, 2 SPRAY NS DAILY PRN for CONGESTION, (Reported) Entered as Reported by: MANE WADDELL on 07/31/19 1045 Furosemide (Furosemide) 40 Mg Tablet, 40 MG PO BID Prescribed by: IVETTE PARKS on 01/07/21 1000 Insulin Aspart (Novolog) 100 Unit/1 Ml Susp, 30 UNIT SQ AC, (Reported) Entered as Reported by: ANTHONY BUENO on 05/24/19 180 Insulin Glargine,Hum.rec.anlog (Lantus) 100 Unit/1 Ml Vial, 110 UNIT SQ HS, (Reported) Entered as Reported by: MANE WADDELL on 07/31/19 1034 Losartan Potassium (Losartan Potassium) 25 Mg Tablet, 25 MG PO HS, (Reported) Entered as Reported by: MANE WADDELL on 01/05/21 1230 Metformin HCl (Metformin HCl ER) 500 Mg Tab.er.24, 1,000 MG PO BID, (Reported) Entered as Reported by: MANE WADDELL on 01/05/21 1230 Metoprolol Succinate (Metoprolol Succinate) 25 Mg Tab.er.24h, 25 MG PO DAILY, (Reported) Entered as Reported by: MANE WADDELL on 01/05/21 1230 Montelukast Sodium (Montelukast Sodium) 10 Mg Tablet, 10 MG PO HS, (Reported) Entered as Reported by: MANE WADDELL on 01/05/21 1230 Potassium Chloride (Potassium Chloride) 10 Meq Tab.er.prt, 20 MEQ PO DAILY, (Reported) Entered as Reported by: MANE WADDELL on 01/05/21 1230 Pregabalin (Pregabalin) 225 Mg Capsule, 225 MG PO BID, (Reported) Entered as Reported by: MANE WADDELL on 01/05/21 1230 Ropinirole HCl (Ropinirole HCl) 1 Mg Tablet, 1 MG PO BID, (Reported) Entered as Reported by: ANTHONY BUENO on 05/24/19 1804 Semaglutide (Ozempic) 1 Mg/0.75 Ml Pen.injctr, 1 MG SQ FRI, (Reported) Entered as Reported by: MANE WADDELL on 01/05/21 1252 Review of Systems Review of Systems Constitutional: No chills, No fever EENTM: no symptoms reported Respiratory: No phlegm; short of breath; No stridor Cardiovascular: No chest pain; edema Gastrointestinal: No nausea, No vomiting Genitourinary: No dysuria Musculoskeletal: no symptoms reported Skin: no symptoms reported Psychiatric/Neurological: Anxiety Past Abneurw-Vcdptp-Pjxfqt Hx Patient Social History Tobacco Use?: No Smoking Status: Never a Smoker Use of E-Cig and/or Vaping dev: No Substance use?: No Alcohol Use?: No Pt feels they are or have been: No Immunizations Up To Date Tetanus Booster (TDap): Unknown Seasonal Allergies Seasonal Allergies: No Past Medical History Surgeries: Yes (KISSING STENTS IN LEGS) Gallbladder, Hysterectomy, Tubal Ligation Respiratory: Yes (home O2; possible pulmonary HTN- sees DR GARCIA) Pneumonia, COPD Currently Using CPAP: Yes Cardiac: Yes High Cholesterol, Hypertension Neurological: Yes Stroke Genitourinary: No Gastrointestinal: Yes Gastroesophageal Reflux Musculoskeletal: No Endocrine: Yes Diabetes, Insulin dep HEENT: No Cancer: No Psychosocial: No Integumentary: No Blood Disorders: No Adverse Reaction/Blood Tranf: No Physical Exam Vital Signs Vital Signs - First Documented 05/31/21 05/31/21 19:18 19:20 Temp 36.7 Pulse 88 Resp 20 B/P (MAP) 151/91 (111) Pulse Ox 98 O2 Delivery Room Air O2 Flow Rate 10.00 FiO2 98 Capillary Refill : Less Than 3 Seconds Height, Weight, BMI Height: '" Weight: lbs. oz. 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 Norm as Tested Skin: Normal Color, Warm/Dry Progress/Results/Core Measures Results/Orders Lab Results Laboratory Tests Test 05/31/21 19:24 05/31/21 20:04 Range/Units White Blood Count 5.9 4.3-11.0 10^3/uL Red Blood Count 4.28 3.80-5.11 10^6/uL Hemoglobin 10.6 L 11.5-16.0 g/dL Hematocrit 36 35-52 % Mean Corpuscular Volume 84 80-99 fL Mean Corpuscular Hemoglobin 25 25-34 pg Mean Corpuscular Hemoglobin Concent 30 L 32-36 g/dL Red Cell Distribution Width 17.0 H 10.0-14.5 % Platelet Count 115 L 130-400 10^3/uL Mean Platelet Volume 12.9 H 9.0-12.2 fL Immature Granulocyte % (Auto) 0 % Neutrophils (%) (Auto) 73 42-75 % Lymphocytes (%) (Auto) 19 12-44 % Monocytes (%) (Auto) 8 0-12 % Eosinophils (%) (Auto) 0 0-10 % Basophils (%) (Auto) 0 0-10 % Neutrophils # (Auto) 4.3 1.8-7.8 X 10^3 Lymphocytes # (Auto) 1.1 1.0-4.0 X 10^3 Monocytes # (Auto) 0.5 0.0-1.0 X 10^3 Eosinophils # (Auto) 0.0 0.0-0.3 10^3/uL Basophils # (Auto) 0.0 0.0-0.1 10^3/uL Immature Granulocyte # (Auto) 0.0 0.0-0.1 10^3/uL Sodium Level 139 135-145 MMOL/L Potassium Level 5.2 H 3.6-5.0 MMOL/L Chloride Level 102 98-107 MMOL/L Carbon Dioxide Level 22 21-32 MMOL/L Anion Gap 15 H 5-14 MMOL/L Blood Urea Nitrogen 49 H 7-18 MG/DL Creatinine 2.32 H 0.60-1.30 MG/DL Estimat Glomerular Filtration Rate 22 BUN/Creatinine Ratio 21 Glucose Level 258 H 70-105 MG/DL Calcium Level 9.3 8.5-10.1 MG/DL Corrected Calcium 9.6 8.5-10.1 MG/DL Magnesium Level 1.6 1.6-2.4 MG/DL Total Bilirubin 1.1 H 0.1-1.0 MG/DL Aspartate Amino Transf (AST/SGOT) 21 5-34 U/L Alanine Aminotransferase (ALT/SGPT) 10 0-55 U/L Alkaline Phosphatase 151 H 40-136 U/L Troponin I < 0.30 <0.30 NG/ML C-Reactive Protein 1.69 H <0.50 MG/DL Pro-B-Type Natriuretic Peptide 4331.0 H <75.0 PG/ML Total Protein 7.2 6.4-8.2 GM/DL Albumin 3.6 3.2-4.5 GM/DL Smear Scan NO Blood Gas Puncture Site RIGHT WRIST Blood Gas Patient Temperature 36.7 Arterial Blood pH 7.29 *L 7.37-7.43 Arterial Blood Partial Pressure CO2 63 H 35-45 MMHG Arterial Blood Partial Pressure O2 14 *L 79-93 MMHG Arterial Blood HCO3 30 H 23-27 MMOL/L Arterial Blood Total CO2 32.2 H 21.0-31.0 MMOL/L Arterial Blood Oxygen Saturation 13 L 94-100 % Arterial Blood Base Excess 2.2 -2.5-2.5 MMOL/L Jos Test POSITIVE Blood Gas Ventilator Setting NO Blood Gas Inspired Oxygen 10 My Orders Orders - RITU WOMACK MD Cbc With Automated Diff (05/31/21 19:36) Comprehensive Metabolic Panel (05/31/21 19:36) Chest 1 View Ap/Pa Only (05/31/21 19:36) Magnesium (05/31/21 19:36) Ekg Tracing (05/31/21 19:36) O2 (05/31/21 19:36) Ed Iv/Invasive Line Start (05/31/21 19:36) Monitor-Rhythm Ecg Trace Only (05/31/21 19:36) Crp Fs (05/31/21 19:36) Troponin I Fs (05/31/21 19:37) Arterial Blood Gas (05/31/21 19:43) Probnp Fs (05/31/21 19:36) Covid 19 Inhouse Test (05/31/21 21:43) Vital Signs/I&O 05/31/21 05/31/21 05/31/21 19:18 19:20 21:59 Temp 36.7 Pulse 88 83 Resp 20 20 B/P (MAP) 151/91 (111) 157/89 Pulse Ox 98 94 O2 Delivery Room Air NIV CPAP Non Rebreather O2 Flow Rate 10.00 11.00 FiO2 98 Blood Pressure Mean: 111 Progress Progress Note #1: Progress Note Obtain blood work including ABG. Chest x-ray to evaluate for infiltrate after heart failure. Electrocardiogram to evaluate heart rhythm and look for ischemia. Continue on assisted ventilation with the CPAP until blood gas results are back. Differential diagnosis includes CHF exacerbation, pneumonia, COPD, Covid, Progress Note #2: Time: 20:09 Progress Note CXR shows some interstitial pulmonary edema. Cardiomegaly. No acute infiltrate. Lab just got the ABG on patient. Progress Note #3: Time: 20:42 Progress Note 2030 patient was updated about results and that she shows signs of her kidneys not filtering as well and some continued heart failure. The attempts to get blood gas were unsuccessful and only a venous sample was able to be obtained instead of arterial blood gas. She was switched from CPAP to nonrebreather face mask and she was having an oxygen saturation 98-100% on this. She also was starting to diurese with the 80 mg of IV lasix given by EMS captain/airline pilot. Call placed to [facility] to check about transfer of patient since patient requested to see about transfer to there. Initially transferred to the ED by admissions nurse, LEANA Castillo, but told by LEANA Olivia, in ED that I needed to call a transfer number When I called the transfer number I reached the nursing brick chimney supervisor and she advised that I needed to speak to ED after 8 pm. 2036 I spoke with LEANA Appiah, at the ED and she took the information on the patient but advised me that the ED doc usually does not start dealing with transfers until after 2099. Will fax chart to her in the ED and she will try to find out from attending if they have beds or if pt can come there. Progress Note #4: Time: 22:24 Progress Note EMS with patient on their cot and taking her to the ambulance for transfer to the ED at [facility] [place]. Initial ECG Impression Date: May 31, 2021 Initial ECG Impression Time: 19:21 Initial ECG Rate: 84 Initial ECG Rhythm: Normal Sinus Initial ECG Comparisson: Unchanged Comment Normal sinus rhythm with a heart rate of 84 bpm. SC interval 176 ms. 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 No acute ST elevation. QT interval 405 ms with a QTc interval 479 ms. Appears similar to prior tracings in the system. Diagnostic Imaging Diagonstic Imaging: Xray Plain Films/CT/US/NM/MRI: chest Comments NAME: [facility] REC#: [id number] PT STATUS: REG ER : 1965 PHYSICIAN: RITU WOMACK MD ADMIT DATE: 05/31/21/ER FS Draft Date of Exam:05/31/21 CHEST 1 VIEW AP/PA ONLY HISTORY: Shortness of breath TECHNIQUE: Frontal view of the chest COMPARISON: 02/28/2021 FINDINGS: There is moderate cardiomegaly which is stable since 02/28/2021. There is haziness of the lung bases which is thought to be due to overlying soft tissues. Interstitial markings appear mildly prominent. There is no pleural effusion or pneumothorax. IMPRESSION: 1. Stable moderate cardiomegaly. 2. Prominent interstitial markings, may represent a mild edema. Dictated on workstation # [id number] Dict: 05/31/211947 Trans: 05/31/212000 [facility] [id number] Interpreted by: NEO SULLIVAN MD Electronically signed by: Reviewed: Reviewed by Me Departure Impression Primary Impression: Acute exacerbation of CHF (congestive heart failure) Qualified Codes: I50.9 - Heart failure, unspecified Additional Impression: Acute renal insufficiency Disposition: XFER SHT-TRM HOSP Condition: Stable Transfer Transfer Reason: Patient preference ('s Benefits at [facility]) Time Spoke to Accepting Phy: 21:50 Transfer Progress Notes [address] Yang about the patient and she had just arrived so she still needed to review the chart and find out if there were even beds available. She did ask about Covid on the patient and I advised her that I had not obtained one since her symptoms were consistent with her CHF exacerbations and she was doing better after diuresis of about 480 mL of urine and an hour of CPAP. Currently on facemask and just weaned down from 15 Lpm to 11 Lpm and still maintaining 97-98% O2 sats. 2149 Dr. Yang called back stating she did have a bed available for patient but since it would be a several hour process to obtain a Covid swab on patient they will do one at the ED there. Since it is after hours for the SD she will need to be a stop over in the ED to be checked out by physician prior to going upstairs to the floor anyway. Transfer Facility: [facility] [place] Method of Transfer: EMS Departure-Patient Inst. Referrals: STACEY CORRALES DO (PCP) Primary Care Physician JEAN ADHIKARI-AIRPORT PLANNER (Family) Primary Care Physician RITU WOMACK MD May 31, 2021 19:42
--- NOTE | 2021-05-31 20:02 | Diagnostic Imaging Report ---
HISTORY: Shortness of breath TECHNIQUE: Frontal view of the chest COMPARISON: 02/28/2021 FINDINGS: There is moderate cardiomegaly which is stable since 02/28/2021. There is haziness of the lung bases which is thought to be due to overlying soft tissues. Interstitial markings appear mildly prominent. There is no pleural effusion or pneumothorax. IMPRESSION: 1. Stable moderate cardiomegaly. 2. Prominent interstitial markings, may represent a mild edema. Dictated by: Dictated on workstation # [id number]
[2021-05-31 20:09] LABS: ABG BASE EXCESS 2.2 MMOL/L (-2.5-2.5); ABG OXYGEN SATURATION 13 % (94-100); ABG PCO2 63 MMHG (35-45); ABG TCO2 32.2 MMOL/L (21.0-31.0); ALLENS TEST POSITIVE
[2021-05-31 20:10] LABS: INSPIRED O2 10; PATIENT TEMP 36.7; VENTILATOR NO
[2021-05-31 20:11] LABS: ABG PH 7.29 (7.37-7.43); ABG PO2 14 MMHG (79-93)
[2021-05-31 20:11] LABS: HEMATOCRIT 36 % (35-52); HEMOGLOBIN 10.6 g/dL (11.5-16.0); MEAN CORPUSCULAR HEMOGLOBIN 25 pg (25-34); MEAN CORPUSCULAR HGB CONC 30 g/dL (32-36); MEAN CORPUSCULAR VOLUME 84 fL (80-99); WHITE BLOOD COUNT 5.9 10^3/uL (4.3-11.0)
[2021-05-31 20:12] LABS: BASOPHILS % (AUTO) 0 % (0-10); EOSINOPHILS % (AUTO) 0 % (0-10); LYMPHOCYTES # (AUTO) 1.1 X 10^3 (1.0-4.0); LYMPHOCYTES % (AUTO) 19 % (12-44); MEAN PLATELET VOLUME 12.9 fL (9.0-12.2); MONOCYTES # (AUTO) 0.5 X 10^3 (0.0-1.0); MONOCYTES % (AUTO) 8 % (0-12); NEUTROPHILS # (AUTO) 4.3 X 10^3 (1.8-7.8); NEUTROPHILS % (AUTO) 73 % (42-75); PLATELET COUNT 115 10^3/uL (130-400); SMEAR SCAN COMMENT NO
[2021-05-31 20:17] LABS: ALANINE AMINOTRANSFERASE 10 U/L (0-55); ALBUMIN 3.6 GM/DL (3.2-4.5); ALKALINE PHOSPHATASE 151 U/L (40-136); BILIRUBIN,TOTAL 1.1 MG/DL (0.1-1.0); BUN/CREATININE RATIO 21; CALCIUM 9.3 MG/DL (8.5-10.1); CARBON DIOXIDE 22 MMOL/L (21-32); CHLORIDE 102 MMOL/L (98-107); CREATININE SERUM 2.32 MG/DL (0.60-1.30); GFR ESTIMATED 22; GLUCOSE 258 MG/DL (70-105); MAGNESIUM 1.6 MG/DL (1.6-2.4); POTASSIUM 5.2 MMOL/L (3.6-5.0); SODIUM 139 MMOL/L (135-145); TOTAL PROTEIN 7.2 GM/DL (6.4-8.2)
[2021-05-31 21:59] VITALS: BP 157/89
== END 2021-05-31 22:27 | disposition short-term general hospital (02) ==
LOC: EDUNIT# 19:15 → ER FS 19:16
DX: I11.0 Hypertensive heart disease with heart failure (principal); I50.9 Heart failure, unspecified; N28.9 Disorder of kidney and ureter, unspecified; J44.9 Chronic obstructive pulmonary disease, unspecified; E66.9 Obesity, unspecified; E11.9 Type 2 diabetes mellitus without complications; K21.9 Gastro-esophageal reflux disease without esophagitis; E78.00 Pure hypercholesterolemia, unspecified; Z68.42 Body mass index [BMI] 45.0-49.9, adult; Z86.73 Personal history of transient ischemic attack (TIA), and cerebral infarction without residual deficits; Z79.4 Long term (current) use of insulin; Z79.899 Other long term (current) drug therapy; Z79.82 Long term (current) use of aspirin; Z79.01 Long term (current) use of anticoagulants
CPT/HCPCS: 36415; 71045; 80053; 82805; 83735; 83880; 84484; 85025; 86141; 93005; 93041